=== PATIENT | female | born 1965 | race Caucasian/White ===

== ENCOUNTER → 2019-04-28 11:30 | Outpatient (CLI) | payer BC, SELFPAY ==
--- NOTE | ~2019-04-28 | XR_ITS ---
XR_CERV2-3V_CR 04/28/2019 12:20 Indication: Cervical pain Procedure: 3 views of the cervical spine Comparison: No prior studies for comparison. Findings: Normal cervical alignment. Mild disc narrowing at C4-5. There is mild uncinate degenerative change at this level. Lung apices are normal. Odontoid process within normal limits. No prevertebral soft tissue swelling. No acute fracture or traumatic malalignment. Impression: 1: Mild cervical spondylosis. Reviewed, dictated and finalized at location A. NSED SOCIAL WORKER Impression: 1: Mild cervical spondylosis.
--- NOTE | ~2019-04-28 | XR_ITS ---
XR thoracic spine 2V 04/28/2019 12:20 Indication: Back pain Procedure: 3 views thoracic spine Comparison: No prior studies for comparison. Findings: There is mild mid thoracic spondylosis was slightly accentuated kyphosis. No fracture or tr aumatic malalignment. Pedicles intact. No paraspinal soft tissue abnormality. Visualized lung parench yma is unremarkable. No significant paraspinal soft tissue abnormality. Impression: 1: Mild thoracic spondylosis. Reviewed, dictated and finalized at location A. ACCOUNTS CLERK Impression: 1: Mild thoracic spondylosis.
--- NOTE | ~2019-04-28 | XR_ITS ---
XR lumbar spine 2-3V 04/28/2019 12:20 Indication: Low back pain Procedure: 3 views lumbar spine Comparison: No prior studies for comparison. Findings: There is mild disc narrowing at L4-5 and L5-S1. There are facet hypertrophic changes at the se levels. No acute fracture, subluxation or dislocation. There is mild dextroscoliosis centered at L 2. Pedicles intact. Sacral foramen are symmetric. No evidence for spondylolisthesis. Impression: 1: Mild lumbar spondylosis with dextroscoliosis. Reviewed, dictated and finalized at location A. ERY AND UPHOLSTERY MEASURER Impression: 1: Mild lumbar spondylosis with dextroscoliosis.
== END ==
PROVIDERS: PCP Family Medicine; Visit Provider Chiropractor
DX: M47.814 Spondylosis without myelopathy or radiculopathy, thoracic region (principal); M47.816 Spondylosis without myelopathy or radiculopathy, lumbar region; M47.812 Spondylosis without myelopathy or radiculopathy, cervical region; M41.9 Scoliosis, unspecified
CPT/HCPCS: 72040; 72070; 72100

== ENCOUNTER → 2019-05-04 12:56 | Outpatient (CLI) | payer BC, SELFPAY ==
--- NOTE | ~2019-05-04 | MR_ITS ---
EXAMINATION: MR lumbar spine wo con DATE: 05/04/2019 13:30 INDICATION: Severe low back pain. TECHNIQUE: Magnetic resonance imaging (MRI) of the lumbar spine was performed without intravenous con trast. Sequences included sagittal T2-weighted FSE, sagittal T2-weighted FS FSE, sagittal T1-weighted FSE, and axial T2-weighted FSE. COMPARISON: Lumbar spine radiographs 04/28/2019 FINDINGS: L5 is a transitional segment. There is 6 degrees dextrocurvature of thoracolumbar spine. Ve rtebral body heights are normal. There is mildly decreased disc height from L2-L3 through L4-L5. The distal spinal cord signal intensity is normal. The conus medullaris is at L1. The following disc leve ls are specifically discussed: L1-L2: The disc does not extend beyond the endplate margin. There is mild bilateral facet joint osteo arthritis. There is no neural foraminal stenosis. There is no central canal stenosis. L2-L3: The disc is bulging and has an annular fissure. There is mild bilateral facet joint osteoarthr itis. There is mild bilateral neural foraminal stenosis. There is mild central canal stenosis. L3-L4: The disc is bulging and has an annular fissure. There is mild bilateral facet joint osteoarthr itis. There is moderate bilateral neural foraminal stenosis. There is mild central canal stenosis. L4-L5: The disc is bulging and has an annular fissure. There is moderate right and mild left facet lela int osteoarthritis. There is mild bilateral neural foraminal stenosis. There is mild central canal st enosis. L5-S1: The disc does not extend beyond the endplate margin. There is no facet joint osteoarthritis. T here is no neural foraminal stenosis. There is no central canal stenosis. IMPRESSION: 1. Moderate lumbar spondylosis. Reviewed, dictated and finalized at location A.
== END ==
PROVIDERS: Visit Provider Chiropractor
DX: M47.816 Spondylosis without myelopathy or radiculopathy, lumbar region (principal); Z91.81 History of falling
CPT/HCPCS: 72148

== ENCOUNTER 2019-05-04 15:47 | Outpatient (CLI) | payer BC, SELFPAY ==
--- NOTE | ~2019-05-04 | MM_ITS ---
EXAMINATION: MM screening janie BI w paul HISTORY: Screening mammogram TECHNIQUE: Craniocaudal and mediolateral oblique 3-D tomosynthesis images were obtained and synthetic 2-D images were generated. CAD analysis was submitted and interpreted. COMPARISON: 10/22/2011 bilateral digital screening mammogram BREAST PARENCHYMAL COMPOSITION: FINDINGS: There is no evidence of suspicious mass, calcification, or architectural distortion to sugg est malignancy in either breast. There has been no suspicious interval change. IMPRESSION: 1. No mammographic evidence of malignancy. 2. Recommend routine screening mammography in one year. BI-RADS Category 1: Negative Reviewed, dictated and finalized at location A.
== END 2019-05-04 15:48 | disposition home or self-care (01) ==
LOC: ANHIMG 15:50
PROVIDERS: PCP Family Medicine; Visit Provider Obstetrics & Gynecology
DX: Z12.31 Encounter for screening mammogram for malignant neoplasm of breast (principal)
CPT/HCPCS: 77063; 77067

== ENCOUNTER 2020-03-18 01:49 | Outpatient (CLI) | payer BC, SELFPAY ==
[2020-03-18 18:12] LABS: SARS-CoV-2 RNA PCR Negative
== END 2020-03-18 01:50 | disposition home or self-care (01) ==
LOC: ANHCOVIDDT 01:49
PROVIDERS: PCP Internal Medicine; Visit Provider Internal Medicine Gastroenterology
DX: Z01.812 Encounter for preprocedural laboratory examination (principal); Z20.822 Contact with and (suspected) exposure to COVID-19
CPT/HCPCS: C9803; U0003; U0005

== ENCOUNTER 2020-03-21 01:01 | Day surgery (SDC) | payer BC, SELFPAY ==
[2020-03-06 14:37] VITALS: BMI 39.4
--- NOTE | 2020-03-19 15:40 | WPDANESEPPF ---
Anes - Initial Pre Proc Eval Procedure: Operation Date: 03/21/20 10:00 Proposed Procedures p Screening Colonoscopy - Kel Pantoja MD Date/Time: 03/19/20 15:40 Surgeon: Kel Pantoja MD Pre Op Diagnosis: Neoplasm Screening Patient Data Age: 54 Gender: F Height: 1.5 m Weight: 88.6 kg Allergies Allergy/AdvReac Type Severity Reaction Status Date / Time No Known Allergies Allergy Unknown Verified 03/21/20 08:52 Home Medications Medication Instructions Recorded Confirmed Type metoprolol succinate 50 mg 50 mg PO DAILY 03/05/19 03/21/20 History tablet,extended release 24 hr duloxetine 60 mg capsule,delayed See Rx Instructions .ROUTE 06/05/19 03/21/20 Rx release .COMPLEX #90 cap bupropion HCl 150 mg 24 hr tablet, 150 mg PO QAM #90 tablet 02/26/20 03/21/20 Rx extended release fluticasone propionate 50 1 spray INTRANASAL Q12H #15.8 ml 02/26/20 03/21/20 Rx mcg/actuation nasal spray,suspension lisinopril 10 mg tablet See Rx Instructions .ROUTE 03/18/20 03/21/20 Rx .COMPLEX #90 tablet Patient hx anesthesia problems: none Family hx anesthesia problems: none PMFSH Past Medical History Medical History (Updated 03/19/20 @ 15:40 by Tony Briceño DO) Allergies Anxiety Arthritis Fibromyalgia Hypertension Sleep apnea Tachycardia Surgical History Surgical History (Updated 02/26/20 @ 13:00 by Eliana Solis CMA) H/O: hysterectomy 2004 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 Family History Family History (Updated 02/26/20 @ 13:01 by Eliana Solis CMA) Mother Patient's mother is , Onset Age: 56 Lung cancer Father Patient's father is in good health Grandparent Family history of dementia, Onset Age: 76 Family history of coronary artery disease, Onset Age: 68 Breast cancer Acute myocardial infarction Other Family history of lung cancer Family history of malignant neoplasm of breast in first degree relative Social History Social History Smoking status: Former smoker Smoking end date: 02/22/96 Alcohol intake: current Alcohol use details: SOCIALLY Substance use: never Substance use type: marijuana Living arrangements: alone Spiritual care concerns: No Anes - Eval Final PreProcedure Day of Procedure 03/19/20 15:40 Patient weight: obese Heart: regular rate and rhythm Lungs: clear to auscultation and normal air movement Airway: Mallampati scale class II Neurological: alert and oriented Last oral intake: >/= 8 hours ASA classification: III Emergent: no Anesthetic plan: proceed Anesthesia type and monitoring: general GIVS and standard monitoring Informed Consent: The patient's anesthetic plan and its attendant risks and benefits were discussed with the patient/family/POA. Questions were solicited and answers provided to the satisfaction of the patient/family/POA.
[2020-03-21 08:54] VITALS: BP 135/82; PULSE 125; RESP 19; TEMP 35.9; O2SAT 98; BMI 38.3
[2020-03-21] MEDS: LACTATED RINGERS 1,000 ML 150 ML IV CONT (09:00)
--- NOTE | 2020-03-21 09:55 | PM.HPGS ---
History of Present Illness History of Present Illness Consent: Risks, benefits, and alternatives have been discussed and questions answered. Patient agrees to proceed with procedure. Chief complaint: Neoplasm Screening Narrative: Sushila Cuello is a 54 year old female here for first screening colonoscopy Review of Systems Constitutional: Constitutional: Denies headache(s) and Denies weakness Eyes: Eyes: Denies blurry vision ENT: Reports Normal hearing present, Denies headache(s) and Denies neck pain Cardiovascular: Cardiovascular: Denies chest pain and Denies dyspnea Respiratory: Respiratory: Denies dyspnea Gastrointestinal: Gastrointestinal: Reports no additional gastrointestinal complaints Genitourinary: Genitourinary: Denies dysuria Musculoskeletal: Musculoskeletal: Denies neck pain Integumentary/Breasts: Skin/Breast: Denies dry skin Neurologic: Reports Normal hearing present, Denies headache(s) and Denies weakness Psychiatric: Psychiatric: Denies anxiety Endocrine: Endocrine: Denies change in body appearance Hematologic/Lymphatic: Hematologic/Lymphatic: Denies easy bleeding Allergic/Immunologic: Allergic/Immunologic: Denies urticaria PMFSH Past Medical History Medical History (Updated 03/19/20 @ 15:40 by Tony Briceño DO) Allergies Anxiety Arthritis Fibromyalgia Hypertension Sleep apnea Tachycardia Surgical History Surgical History (Updated 02/26/20 @ 13:00 by Eliana Solis [facility]) H/O: hysterectomy 2004 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 Family History Family History (Updated 02/26/20 @ 13:01 by Eliana Solis [facility]) Mother Patient's mother is , Onset Age: 56 Lung cancer Father Patient's father is in good health Grandparent Family history of dementia, Onset Age: 76 Family history of coronary artery disease, Onset Age: 68 Breast cancer Acute myocardial infarction Other Family history of lung cancer Family history of malignant neoplasm of breast in first degree relative Social History Social History Smoking status: Former smoker Smoking end date: 02/22/96 Alcohol intake: current Alcohol use details: SOCIALLY Substance use: never Substance use type: marijuana Living arrangements: alone Spiritual care concerns: No Meds Home Medications and Allergies Home Medications Medication Instructions Recorded Confirmed Type metoprolol succinate 50 mg 50 mg PO DAILY 03/05/19 03/21/20 History tablet,extended release 24 hr duloxetine 60 mg capsule,delayed See Rx Instructions .ROUTE 06/05/19 03/21/20 Rx release .COMPLEX #90 cap bupropion HCl 150 mg 24 hr tablet, 150 mg PO QAM #90 tablet 02/26/20 03/21/20 Rx extended release fluticasone propionate 50 1 spray INTRANASAL Q12H #15.8 ml 02/26/20 03/21/20 Rx mcg/actuation nasal spray,suspension lisinopril 10 mg tablet See Rx Instructions .ROUTE 03/18/20 03/21/20 Rx .COMPLEX #90 tablet Allergies Allergy/AdvReac Type Severity Reaction Status Date / Time No Known Allergies Allergy Unknown Verified 03/21/20 08:52 Vital Signs Vital Signs - 24 hr 03/21/20 08:54 Temperature 96.6 F L Pulse Rate 125 H Respiratory Rate 19 Blood Pressure 135/82 Pulse Oximetry 98 Exam Const: General: comfortable and no acute distress HENMT: General nose exam: Normal nares present Eyes: General: appearance normal, both eyes and all related structures Neck: Neck: no JVD Resp: Auscultation: clear to auscultation bilaterally Cardio: Rate: regular rate Rhythm: regular rhythm GI: Inspection: non-distended GI Palp: Yes Soft to palpation Skin: General skin exam: normal color Neuro: General: gait normal Speech: normal speech Extrem: General: normal to inspection Psych: Mental Status: mental status grossly normal Assessment and Plan Assessment and plan (1) Screening for colon cancer: Code(s): Z
[2020-03-21 10:17] VITALS: BP 115/64; PULSE 91; RESP 25; O2SAT 95
[2020-03-21 10:27] VITALS: BP 97/60; PULSE 92; RESP 23; O2SAT 95
[2020-03-21 10:37] VITALS: BP 111/64; PULSE 85; RESP 20; O2SAT 98
== END 2020-03-21 10:57 | disposition home or self-care (01) ==
PROVIDERS: PCP Internal Medicine; Visit Provider Internal Medicine Gastroenterology
PROC: 0DJD8ZZ Inspection of Lower Intestinal Tract, Via Natural or Artificial Opening Endoscopic (ICD-10-PCS; CPT 45378; principal; 2020-03-21 10:00)
DX: Z12.11 Encounter for screening for malignant neoplasm of colon (principal); F41.9 Anxiety disorder, unspecified; M19.90 Unspecified osteoarthritis, unspecified site; M79.7 Fibromyalgia; I10 Essential (primary) hypertension; G47.30 Sleep apnea, unspecified; R00.0 Tachycardia, unspecified; Z87.891 Personal history of nicotine dependence; E66.9 Obesity, unspecified; Z68.38 Body mass index [BMI] 38.0-38.9, adult; K64.8 Other hemorrhoids
CPT/HCPCS: 45378; J2704; J7120

== ENCOUNTER 2020-03-25 09:25 | Outpatient (RCR) | payer BC, SELFPAY ==
[2020-03-25 09:40] VITALS: BMI 42.0
[2020-03-25 09:42] VITALS: BMI 42.0
== END 2020-06-09 14:46 | disposition home or self-care (01) ==
LOC: ANHDMC 09:25
PROVIDERS: PCP Internal Medicine; Visit Provider Clinical Nurse Specialist
DX: E66.9 Obesity, unspecified (principal); Z71.3 Dietary counseling and surveillance
CPT/HCPCS: 97802

== ENCOUNTER 2020-06-04 15:30 | Outpatient (RCR) | payer BC, SELFPAY ==
--- NOTE | 2020-05-20 15:08 | PTOPEVAL ---
PHYSICAL THERAPY EVALUATION AND PLAN OF CARE 05-20-20 Thank you for referring Sushila Cuello to [facility] for the diagnosis of dizziness.? She is scheduled to be seen for therapy? 1-2 x/week for 5 weeks. Please review, sign, date and return this plan of care GEMMA. I agree with and certify that the following plan of care is medically necessary. Referring Physician Date Attending Provider: VICKY Lacy Referring Provider: Cristian Herring DO PT Outpatient Evaluation Document 05/20/20 14:00 JOVANNI (Rec: 05/20/20 15:08 JOVANNI [id number]) Outpatient Past Medical History Past Medical History Source of Past Medical History Recalled from Previous Visit, Confirmed with Patient/Family Neurological History Hx Neurological Disorders No Significant History Cardiovascular History Hx Hypertension Yes: meds Hx Other Cardiac Disorders Yes: TACHYCARDIA Respiratory History Hx Sleep Apnea Yes: CPAP- Gastrointestinal History Hx Gastrointestinal Disorders No Significant History Genitourinary History Hx Genitourinary Disorders No Significant History Musculoskeletal History Hx Arthritis Yes: hips and back- pain Hx Fibromyalgia Yes Hematological History Hx Hematological Disorders No Significant History Endocrine History Hx Endocrine Disorders No Significant History HEENT History Hx Other HEENT Disorders Yes: glasses- bifocal; Integumentary History Hx Skin Disorders No Significant History Reproductive History Hx Hysterectomy Yes Hx Other Reproductive Disorders Yes: in utero surgery with daughter who is now 20 yr ago Psychosocial History Hx Anxiety Yes Hx Depression Yes Pain History Has Past Pain Affected Your Daily Life Yes: FIBROLMYAGIA Anesthesia History Hx Anesthesia Reactions No Significant History Evaluation Information Problem Diagnosis dizziness Onset Feb 2020 Prior Level of Function Activity Level (Last 3 Months) Occupation home health nurse Activity of Daily Living Ability Independent Indoor/Home Mobility Independent Community Mobility Independent Stairs Ability Independent Functional Cognition (Planning, Shopping Independent , Taking Medications) Cooking Yes Cleaning Yes Laundry Yes Shopping Yes Driving Yes Medications Home Meds (Include: OTC, RX, Vitamins, metoprolol, lisinopril, Herbals, Dose, Route,and Frequency) wellbuterin, celexa, nasal Query Text:Home Med Entries Will No spray-PRN for sinus issues; Longer Recall From Past Visits. Home Meds Must Be Re-entered With Each Vi
--- NOTE | 2020-05-28 15:31 | PCPTNOTE ---
Patient called & cancelled scheduled appointment this date due to no transportation.
--- NOTE | 2020-06-11 17:00 | PCPTNOTE ---
Patient called & cancelled today's and the rest of her scheduled appointment this date, stating she was better, and didn't need to come back.
--- NOTE | 2020-06-12 11:37 | PCPTNOTE ---
PHYSICAL THERAPY DISCHARGE 06-12-20 Attending Provider: Za Mcarthur, DEANNA-C Patient:Sushila Kenney Date of :1965 Ms. Kenney called and stated she is doing better, is not having dizziness and wanted to cancel all her remaining appointments. The goals were not assessed. Thank you for referring this patient to [facility]. Please review, sign, date and return this discharge summary GEMMA. I have been updated about the patient's current status and I agree with discharge from the above service at this time. Referring Physician Date
== END 2020-06-13 10:33 | disposition home or self-care (01) ==
LOC: ANHPT 15:30
PROVIDERS: PCP Internal Medicine; Referring Provider Internal Medicine; Visit Provider Clinical Nurse Specialist
DX: R42 Dizziness and giddiness (principal)
CPT/HCPCS: 97110; 97161

== ENCOUNTER 2020-09-12 11:02 | Outpatient (CLI) | payer BC, SELFPAY ==
--- NOTE | ~2020-09-12 | XR_ITS ---
XR hand RT 2V DATE: 09/12/2020 11:21 INDICATION: Fall, hand injury. Pain and swelling at the first digit TECHNIQUE: AP and lateral views of right hand COMPARISON: None FINDINGS: No recent fracture or dislocation is detected. IMPRESSION: No recent fracture or dislocation Reviewed, dictated and finalized at location A.
== END 2020-09-12 11:03 | disposition home or self-care (01) ==
PROVIDERS: PCP Internal Medicine; Visit Provider Clinical Nurse Specialist
DX: M79.641 Pain in right hand (principal)
CPT/HCPCS: 73120

== ENCOUNTER → 2021-04-28 10:58 | Outpatient (CLI) | payer BC, SELFPAY ==
--- NOTE | ~2021-04-28 | MM_ITS ---
EXAMINATION: MM screening janie BI w paul HISTORY: Screening TECHNIQUE: Craniocaudal and mediolateral oblique 3-D tomosynthesis images were obtained and synthetic 2-D images were generated. CAD analysis was submitted and interpreted. COMPARISON: Comparison to multiple prior studies sequentially, with oldest reviewed study dated 10/21. BREAST PARENCHYMAL COMPOSITION: There are scattered areas of fibroglandular density. FINDINGS: There is no evidence of suspicious mass, calcification, or architectural distortion to sugg est malignancy in either breast. There has been no suspicious interval change. IMPRESSION: 1. No mammographic evidence of malignancy. 2. Recommend routine screening mammography in one year. BI-RADS Category 1: Negative Reviewed, dictated and finalized at location A. CLUB TRAVEL COUNSELOR
== END ==
PROVIDERS: PCP Internal Medicine; Visit Provider Nurse Practitioner
DX: Z12.31 Encounter for screening mammogram for malignant neoplasm of breast (principal)
CPT/HCPCS: 77063; 77067

== ENCOUNTER 2021-09-28 13:21 | Outpatient (CLI) | payer BC, SELFPAY ==
[2021-09-28 20:01] LABS: Vitamin D 25 Hydroxy 53.3 ng/mL
== END 2021-09-28 13:22 | disposition home or self-care (01) ==
LOC: ANHGOSHLAB 13:24
PROVIDERS: PCP Internal Medicine; Visit Provider Clinical Nurse Specialist
DX: E55.9 Vitamin D deficiency, unspecified (principal)
CPT/HCPCS: 36415; 82306

== ENCOUNTER → 2021-10-21 09:21 | Outpatient (CLI) | payer BC, SELFPAY ==
--- NOTE | ~2021-10-21 | XR_ITS ---
EXAMINATION: XR chest 2V DATE: 10/21/2021 09:40 INDICATION: Cough, unspecified. TECHNIQUE: Frontal and lateral views of the chest were obtained. COMPARISON: Chest 2 views 12/16/2018 FINDINGS: The chest demonstrates clear lungs without pneumonia, pleural effusion, or pneumothorax. Th e heart size is normal. IMPRESSION: 1. No acute cardiopulmonary disease. Reviewed, dictated and finalized at location A.
== END ==
PROVIDERS: PCP Clinical Nurse Specialist; Visit Provider Clinical Nurse Specialist
DX: R05.9 Cough, unspecified (principal)
CPT/HCPCS: 71046

== ENCOUNTER → 2021-11-03 12:56 | Outpatient (CLI) | payer BC, SELFPAY ==
--- NOTE | ~2021-11-03 | CT_ITS ---
EXAMINATION: CT sinus wo con DATE: 11/03/2021 13:26 INDICATION: Chronic sinusitis TECHNIQUE: Computed tomography (CT) of the paranasal sinuses was performed without intravenous contra st. The dose-length product (DLP) was 279.12 mGy-cm. Iterative reconstruction was used. COMPARISON: None FINDINGS: There is normal development and pneumatization of the paranasal sinuses. There is mild muco ethan thickening of the bilateral maxillary sinuses. There is also minimal opacification of the right s phenoid sinus. A small amount of mucus is seen in the left sphenoid sinus. There is mild mucosal thic kening of the left frontal sinus and ethmoidal air cells. 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 There is opacification of the aura bullosa on the right. The bilateral ostiomeatal complexe s are occluded. Visualized soft tissues are unremarkable. IMPRESSION: 1. Sinus disease as described above. Reviewed, dictated and finalized at location B.
== END ==
PROVIDERS: PCP Internal Medicine; Visit Provider Otolaryngology
DX: J32.9 Chronic sinusitis, unspecified (principal); J33.9 Nasal polyp, unspecified; J34.89 Other specified disorders of nose and nasal sinuses; R09.81 Nasal congestion; R09.82 Postnasal drip; R44.8 Other symptoms and signs involving general sensations and perceptions
CPT/HCPCS: 70486

== ENCOUNTER 2021-12-16 11:15 | Outpatient (CLI) | payer BC, SELFPAY ==
--- NOTE | 2021-12-16 11:42 | ECG_ITS ---
Measurements Intervals [place] Rate: 96 P: 57 WI: 130 QRS: 44 QRSD: 72 T: 45 QT: 301 QTc: 382 Interpretive Statements SINUS RHYTHM COMPARED TO ECG 12/16/2018 17:31:50 SINUS RHYTHM NOW PRESENT Electronically Signed On 12-16-2021 13:18:07 CDT by Meenakshi Partida M.D.
== END 2021-12-16 11:16 | disposition home or self-care (01) ==
LOC: ANHSURGERY 11:19
PROVIDERS: PCP Internal Medicine; Visit Provider Otolaryngology
DX: I10 Essential (primary) hypertension (principal); Z01.818 Encounter for other preprocedural examination
CPT/HCPCS: 93005

== ENCOUNTER 2021-12-18 01:41 | Day surgery (SDC) | payer BC, SELFPAY ==
[2021-12-14 14:09] VITALS: BMI 37.7
--- NOTE | 2021-12-14 14:12 | SUR.PREOP ---
Report to the Outpatient Waiting Room, entrance under the green pavilion located off [facility], at time _1115 on date _12/18/21 . Planned Procedure Time: _1315. Time changes happen often and if your time is changed the preop area will call you the afternoon before. - You and your visitor will be asked to self-screen and do not enter if you have any COVID symptoms. - We encourage only one visitor and NO visitors under age 16 are allowed at this time. Your visitor will receive communication by the phone number that is given day of service. - The patient visitor is requested to social distance or may leave the building when not with patient due to restrictions. - A mask is required within the hospital. Patients may have clear liquids (water, carbonated beverages, clear teas, apple juice) until 3 hours prior to surgery with a maximum of 20 ounces. - No food from midnight until time of surgery - Infants may have breast milk until 4 hours before surgery, infant formula 6 hours prior to surgery. - Children will be allowed to drink immediately following surgery. If applicable, please bring a bottle or sippy cup to assist with drinking. Juice, water, soda, and popsicles are readily available. For infants on formula, please bring formula the day of surgery. Pacifiers are allowed. Take the following medications with a SIP of water the morning of surgery: __bupropion,dulexatine,metoprolol Medications to discontinue per physician __vitamins Date to take last dose__12/15/21 Please no make-up, nail danish, hairspray, perfume, deodorant, or body powder the day of surgery. No jewelry (including any body piercings) or valuables the day of surgery, leave them at home. Please take a shower or bath the night before, or the morning of, surgery with an antibacterial soap. Wear comfortable, loose fitting clothing. Children are encouraged to wear pajamas. - Jewelry must be removed prior to entering the operating room. Rings and piercings that are not removed may be cut off. - The hospital will not accept responsibility for valuables. - Please leave all valuables, including medications, at home the day of surgery. If you are going home after surgery, a licensed motorcoach driver must drive you home. - NO public transportation without another adult. - We recommend that an adult stay with you for 24 hours following discharge. - We also recommend that you do not drive, make important decision, drink alcoholic beverages, or take any drugs that were not prescribed by your health care provider for at least 24 hours after your discharge time. For Pediatric surgeries, we recommend two adults accompany the child home. Follow any additional instructions given to you from your surgeon. If you or anyone in your household have experienced Covid symptoms in the past week, please notify your surgeon or the nurse liaison at the phone number below for possible testing. Telephone instructions given to _edith mast___and asked if any additional questions and then verbalized understanding. Patient advised to call surgeon office or pre surgery nurse liaison [phone] if any additional questions.
--- NOTE | 2021-12-15 16:50 | PM.IMHP ---
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 Family History Family History Mother Patient's mother is , Onset Age: 56 Lung cancer Father Patient's father is in good health Grandparent Family history of dementia, Onset Age: 76 Family history of coronary artery disease, Onset Age: 68 Breast cancer Acute myocardial infarction Other Family history of lung cancer Family history of malignant neoplasm of breast in first degree relative Social History Social History Smoking status: Former smoker Smoking end date: 02/21/93 Additional smoking assessment comments: 1/2 pack per week x 10 years Alcohol intake: current Alcohol use details: occasionally 2x a month Substance use: current Substance use type: marijuana Other substance usage details: smoking Spiritual care concerns: No Meds Home Medications and Allergies Home Medications Medication Instructions Recorded Confirmed Type metoprolol succinate 50 mg 50 mg PO DAILY 03/05/19 12/14/21 History tablet,extended release 24 hr duloxetine 60 mg capsule,delayed See Rx Instructions .Route 08/20/21 12/14/21 Rx release .COMPLEX #90 caps bupropion HCl 150 mg 24 hr tablet, See Rx Instructions .Route 09/29/21 12/14/21 Rx extended release .COMPLEX #90 tabs albuterol sulfate 90 mcg/actuation 2 inh inhalation Q4H PRN shortness 10/21/21 12/14/21 Rx aerosol inhaler of breath or wheezing #8.5 grams lisinopril 10 mg tablet See Rx Instructions .Route 12/08/21 12/14/21 Rx .COMPLEX #90 tabs azelastine 137 mcg (0.1 %) nasal See Rx Instructions .Route 12/14/21 12/14/21 History spray aerosol .COMPLEX PRN Allergic Symptoms fluticasone propionate 50 1 spray intranasal Q12H PRN 12/14/21 12/14/21 History mcg/actuation nasal Allergic Symptoms spray,suspension (Flonase Allergy Relief) vitamin B complex (B 1 tablet PO DAILY 12/14/21 12/14/21 History Complex-Vitamin B12 tablet) prednisone 10 mg tablet 10 mg PO DAILY #3 tabs 12/15/21 Rx Allergies Allergy/AdvReac Type Severity Reaction Status Date / Time No Known Allergies Allergy Unknown Verified 12/14/21 13:44 Exam Narrative: big turbinates aura bilaterally Assessment and Plan Assessment and plan (1) PND (post-nasal drip): Code(s): R09.82 - Postnasal drip Status: Acute (2) Facial pressure: Code(s): R44.8 - Other symptoms and signs involving general sensations and perceptions Status: Acute (3) Nasal polyps: Code(s): J33.9 - Nasal polyp, unspecified Status: Acute (4) Nasal congestion: Code(s): R09.81 - Nasal congestion Status: Acute (5) Nasal obstruction: Code(s): J34.89 - Other specified disorders of nose and nasal sinuses Status: Acute (6) Chronic sinusitis: Code(s): J32.9 - Chronic sinusitis, unspecified Status: Acute (7) Aura bullosa: Code(s): J34.89 - Other specified disorders of nose and nasal sinuses Status: Acute Plan OR for?image guided endoscopic bilateral maxillary antrostomies without tissue removal bilateral aura bullosa resection bilateral total ethmoidectomies bilateral sphenoidotomies and left frontal sinu
[2021-12-18] VITALS (8 sets, daily range): BP systolic 140–159; BP diastolic 64–102; PULSE 90–107; RESP 12–16; TEMP 36.5–36.6; O2SAT 92–100
--- NOTE | 2021-12-18 07:14 | WPDHPUPDATE1 ---
History and Physical Update Update Date/Time: 12/18/21 07:14 History and Physical has been reviewed, including an updated exam of the patient. There are NO changes in the patient's condition. Risks, benefits, and alternatives have been discussed and questions answered. Patient agrees to proceed with procedure.
[2021-12-18] MEDS: ACETAMINOPHEN 500 MG TABLET 1000 MG PO (11:44)
[2021-12-18] MEDS: LACTATED RINGERS 1,000 ML 30 ML IV CONT ×3 (12:02→17:30)
--- NOTE | 2021-12-18 12:09 | WPDANESEPPF ---
Anes - Initial Pre Proc Eval Procedure: Operation Date: 12/18/21 13:15 Proposed Procedures p Image Guided Bilateral Maxillary Antrostomy, Resection Bilateral Blanka Bullosa, Bilateral Total Ethmoidectomy, Bilateral Sphenoidotomy, Left Frontal Sinusotomy, Bilateral Inferior Turbinectomy with Outfracture - Richie Valles MD Date/Time: 12/18/21 12:09 Surgeon: Richie Valles MD Pre Op Diagnosis: Turbinate Hypertrophy, Blanka Bullosa Patient Data Age: 55 Gender: F Height: 1.47 m Weight: 84 kg Last Vital Signs Temp 36.5 C 12/18/21 11:38 Pulse 90 12/18/21 11:38 Resp 16 12/18/21 11:38 BP 148/70 H 12/18/21 11:38 Pulse Ox 99 12/18/21 11:38 O2 Del Method Room Air 12/18/21 11:38 Allergies Allergy/AdvReac Type Severity Reaction Status Date / Time No Known Allergies Allergy Unknown Verified 12/18/21 11:40 Home Medications Medication Instructions Recorded Confirmed Type metoprolol succinate 50 mg 50 mg PO DAILY 03/05/19 12/18/21 History tablet,extended release 24 hr duloxetine 60 mg capsule,delayed See Rx Instructions .Route 08/20/21 12/18/21 Rx release .COMPLEX #90 caps bupropion HCl 150 mg 24 hr tablet, See Rx Instructions .Route 09/29/21 12/18/21 Rx extended release .COMPLEX #90 tabs albuterol sulfate 90 mcg/actuation 2 inh inhalation Q4H PRN shortness 10/21/21 12/18/21 Rx aerosol inhaler of breath or wheezing #8.5 grams lisinopril 10 mg tablet See Rx Instructions .Route 12/08/21 12/18/21 Rx .COMPLEX #90 tabs azelastine 137 mcg (0.1 %) nasal See Rx Instructions .Route 12/14/21 12/18/21 History spray aerosol .COMPLEX PRN Allergic Symptoms fluticasone propionate 50 1 spray intranasal Q12H PRN 12/14/21 12/18/21 History mcg/actuation nasal Allergic Symptoms spray,suspension (Flonase Allergy Relief) vitamin B complex (B 1 tablet PO DAILY 12/14/21 12/18/21 History Complex-Vitamin B12 tablet) Patient hx anesthesia problems: none Family hx anesthesia problems: none Results Review: All pre-operative results and documents have been reviewed as part of the pre-operative evaluation. 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 Family History Family History Mother Patient's mother is , Onset Age: 56 Lung cancer Father Patient's father is in good health Grandparent Family history of dementia, Onset Age: 76 Family history of coronary artery disease, Onset Age: 68 Breast cancer Acute myocardial infarction Other Family history of lung cancer Family history of malignant neoplasm of breast in first degree relative Social History Social History Smoking status: Never smoker Smoking end date: 02/22/96 Additional smoking assessment comments: 1/2 pack per week x 10 years Alcohol intake: current Alcohol use details: SOCIALLY Substance use: current Substance use type: marijuana Other substance usage details: smoking Living arrangements: with family Spiritual care concerns: No Anes - Eval Final PreProcedure Day of Procedure 12/18/21 12:09 Patient weight: obese Heart: regular rate and rhythm Lungs: clear to auscultation Airway: Mallampati scale class II Neurological: alert and oriented Last oral intake: >/= 8 hours ASA classification: III Emergent: no Anesthetic plan: proceed Anesthesia type and monitoring: general ETT and standard monitoring Results Review: All pre-operative results and documents have been reviewed as part of the pre-operative evaluation. Informed Consent: The patient'
[2021-12-18] MEDS: ceFAZolin 2 GM/D5W 50 ML 2 GM/50 ML BAG IVPB (13:41)
[2021-12-18] MEDS: OXYMETAZOLINE HCL 0.05% NAS 15 ML BTL (*BKC) 1 SPRAY NASAL ×3 (13:56→16:27)
[2021-12-18] MEDS: MUPIROCIN 2% OINT 22 GM TUBE 1 APPLIC EACH NARE (15:57)
[2021-12-18] MEDS: fentaNYL CITRATE INJ (*CRX) 100 MCG/2 ML VIAL 25 MCG IV PUSH ×4 (17:17→17:32)
--- NOTE | 2021-12-18 18:14 | P.OP_ITS ---
Procedure Note - Detailed Date of Procedure 12/18/21 Pre-op Diagnosis Turbinate Hypertrophy, Aura Bullosa bilaterally, chronic sinusitis Post-op Diagnosis Same Procedure Performed bilateral image guided endoscopic maxillary antrostomies total ethmoidectomies sphenoidotomies, image guided endoscopic left frontal sinusotomy, endoscopic resection of bilateral aura bullosa, inferior turbinate submucosal resection with outfracture Surgeon Richie Valles MD Anesthesia General Indications see above Findings infected tissue in all the operated sinuses left frontal appeared normal after opening. Aura with severe disease especially in the right. Hypertrophied turbinates well reduced no complications bleeding following the procedure with no obvious source located Description of Procedure patient identified consent verified. Patient brought operating room. Time-out performed. General anesthesia induced endotracheal tube secured taped left lower lip. Patient prepped draped image guidance initiated Afrin-soaked pledgets placed 2nd time-out performed. Afrin-soaked pledgets removed 0 degree endoscope utilized total of 9 cc 1% lidocaine 1 100,000 parts epinephrine utilized and injected into the inferior turbinates and aura. Aura resected with sickle blade microdebrider straight through cut the right had copious amounts of mucus and purulence in it. Maxillary antrostomies performed with wi th double ball tip probe backbiter straight through cut microdebrider. Total ethmoidectomies performed with image guidance Kerrison microdebrider straight through cut. Sphenoidotomies performed with image guidance microdebrider 1 Kerrison 3 Kerrison and sphenoid punch. Afrin-soaked pledgets were immediate intermittently placed to control bleeding. Left frontal sinusotomy was performed with image guidance frontal seeker 70 degree scope and Cobra. Inferior turbinates reduced with 2 mm turbinate blade then outfractured large mulberry tips were cauterized with Bovie suction electrocautery. Upon wake-up the patient bled and was deepened she was not extubated get. Bovie suction electrocautery utilized to burn the posterior septal branches. Nova plaque Nova pack was placed in the bilateral middle meati I there is no bleeding. Patient tolerated the procedure well no complications. Total blood loss 200 cc. I performed all dictated portions of the procedure patient taken to PACU care the patient given Anesthesiology. Estimated Blood Loss 200 Drains No Packing Yes (Novapak) Pathology None sent Complications No immediate complications Condition Stable Disposition PACU
[2021-12-18] MEDS: IBUPROFEN 600 MG TABLET PO (18:15)
== END 2021-12-18 18:45 | disposition home or self-care (01) ==
PROVIDERS: PCP Internal Medicine; Visit Provider Otolaryngology
PROC: (CPT 31240; principal; 2021-12-18 13:15)
DX: J32.9 Chronic sinusitis, unspecified (principal); J34.3 Hypertrophy of nasal turbinates; J34.89 Other specified disorders of nose and nasal sinuses; R09.82 Postnasal drip; R51.9 Headache, unspecified; R09.81 Nasal congestion; I10 Essential (primary) hypertension; M79.7 Fibromyalgia; F41.9 Anxiety disorder, unspecified; G47.30 Sleep apnea, unspecified; Z79.51 Long term (current) use of inhaled steroids; Z87.891 Personal history of nicotine dependence; F12.90 Cannabis use, unspecified, uncomplicated; E66.9 Obesity, unspecified; Z68.38 Body mass index [BMI] 38.0-38.9, adult
CPT/HCPCS: 31240; 31256; 31253; 31287; 30140; 61782; A9270; J0330; J0690; J1100; J2250; J2405; J2704; J3010; J7120

== ENCOUNTER 2022-04-07 11:48 | Outpatient (CLI) | payer OTHER, BC, SELFPAY ==
[2022-04-07 12:22] LABS: Kit Draw Collected
== END 2022-04-07 11:49 | disposition home or self-care (01) ==
LOC: ANHGOSHLAB 11:49
PROVIDERS: PCP Internal Medicine; Visit Provider Clinical Nurse Specialist
DX: E34.9 Endocrine disorder, unspecified (principal); E87.0 Hyperosmolality and hypernatremia; F31.9 Bipolar disorder, unspecified
CPT/HCPCS: 36415

== ENCOUNTER → 2022-07-09 12:22 | Outpatient (CLI) | payer OTHER, BC, SELFPAY ==
--- NOTE | ~2022-07-09 | US_ITS ---
US soft tissue UE LT 07/09/2022 12:39 Indication: Localized swelling. Palpable area base of the left thumb Procedure: High-resolution Limited ultrasound of the base of the left thumb in the area of palpable c oncern Comparison: X-ray dated 12/01/2017 Findings: Normal heterogeneous echotexture in the area of palpable concern. No discrete mass or fluid collection. Impression: 1: Normal limited soft tissue ultrasound at the base of the left thumb in the area of palpable concer n. Reviewed, dictated and finalized at location B. Impression: 1: Normal limited soft tissue ultrasound at the base of the left thumb in the a marialuisa of palpable concern.
== END ==
PROVIDERS: PCP Clinical Nurse Specialist; Visit Provider Clinical Nurse Specialist
DX: R22.32 Localized swelling, mass and lump, left upper limb (principal)
CPT/HCPCS: 76882

== ENCOUNTER → 2022-12-09 13:37 | Outpatient (CLI) | payer OTHER, BC, SELFPAY ==
--- NOTE | ~2022-12-09 | MM_ITS ---
EXAMINATION: MM screening janie BI w paul HISTORY: Screening TECHNIQUE: Craniocaudal and mediolateral oblique 3-D tomosynthesis images were obtained and synthetic 2-D images were generated. CAD analysis was submitted and interpreted. COMPARISON: Comparison to multiple prior studies sequentially, with oldest reviewed study dated 05/03. BREAST PARENCHYMAL COMPOSITION: There are scattered areas of fibroglandular density. FINDINGS: There are developing asymmetries in the left breast. The right breast is stable without laura dence for malignancy. IMPRESSION: 1. Developing left breast asymmetries. 2. Additional mammographic views and possible breast ultrasound are recommended. BI-RADS Category 0: Incomplete: Needs additional imaging evaluation. Reviewed, dictated and finalized at location A. IMPRESSION: 1. Developing left breast asymmetries. 2. Additional mammographic views and possible breast ultrasound are recommended . BI-RADS Category 0: Incomplete: Needs additional imaging evaluation.
== END ==
PROVIDERS: PCP Nurse Practitioner Obstetrics & Gynecology; Visit Provider Nurse Practitioner Obstetrics & Gynecology
DX: Z12.31 Encounter for screening mammogram for malignant neoplasm of breast (principal); R92.8 Other abnormal and inconclusive findings on diagnostic imaging of breast
CPT/HCPCS: 77063; 77067

== ENCOUNTER → 2022-12-31 09:18 | Outpatient (CLI) | payer OTHER, BC, SELFPAY ==
--- NOTE | ~2022-12-31 | MMUS_ITS ---
EXAMINATION: MM diagnostic janie LT w paul, US breast LT limited HISTORY: Follow-up left breast asymmetries TECHNIQUE: Additional 3-D tomosynthesis images of the left breast were performed and synthetic 2-D im ages were generated. CAD analysis was submitted and interpreted. High resolution Limited left breast ultrasound was performed. COMPARISON: 12/09/2022 BREAST PARENCHYMAL COMPOSITION: The breasts are heterogeneously dense, which may obscure small masses FINDINGS: MAMMOGRAPHIC FINDINGS: There are persistent asymmetries in the upper outer quadrant of the left breast, particularly anterio rly. There are no suspicious calcifications. No definite architectural distortion. ULTRASOUND: Limited left breast ultrasound: At 2:00, 8 cm from the nipple, there is a cluster of microcysts measu ring 8 mm. At 3:00, 6 cm from the nipple there is an oval hypoechoic mass measuring 11 mm with cytogeneticist ior acoustic enhancement, no internal vascularity. At 4:00, 7 cm from the nipple there is an irregula r hypoechoic mass measuring 11 mm greatest dimension. There are adjacent complex hypoechoic tubular s tructures at 4:00, 7 cm from the nipple, largest measuring 1.9 cm. There is associated posterior shad owing. IMPRESSION: 1. Ultrasound-guided left breast biopsies of structures at the 4:00 position, 7 cm from the nipple me asuring 11 mm and 19 mm respectively. BI-RADS CATEGORY 4-SUSPICIOUS ABNORMALITY Reviewed, dictated and finalized at location A. T HEATER IMPRESSION: 1. Ultrasound-guided left breast biopsies of structures at the 4:00 position, 7 cm from the nipple measuring 11 mm and 19 mm respectively. BI-RADS CATEGORY 4-SUSPICIOUS ABNORMALITY
== END ==
PROVIDERS: PCP Nurse Practitioner Obstetrics & Gynecology; Visit Provider Nurse Practitioner Obstetrics & Gynecology
DX: R92.8 Other abnormal and inconclusive findings on diagnostic imaging of breast (principal)
CPT/HCPCS: 76642; 77061; 77065; G0279

== ENCOUNTER 2023-08-02 16:55 | Emergency (ER) | payer OTHER, BC, SELFPAY ==
--- NOTE | 2023-08-02 16:57 | ED.BACK ---
HPI - Back Pain/Injury General Chief Complaint: Back Pain/Injury Stated Complaint: R BACK PAIN Time Seen by Provider: 08/02/23 17:05 Source: patient, RN notes reviewed and old records reviewed Mode of arrival: ambulatory Limitations: no limitations History of Present Illness HPI Narrative: 57-year-old female presents to the [facility] with right-sided back pain. pain started this am. Reports that she has taken ibuprofen with no relief No Urinary symptoms. Denies any injury. Onset (ago): hour(s) Related Data Home Medications Medication Instructions Recorded Confirmed metoprolol succinate 50 mg 50 mg PO DAILY 03/05/19 08/02/23 tablet,extended release 24 hr azelastine 137 mcg (0.1 %) nasal See Rx Instructions .Route 12/14/21 08/02/23 spray aerosol .COMPLEX PRN Allergic Symptoms fluticasone propionate 50 1 - 2 spray intranasal Q12H PRN 04/21/22 08/02/23 mcg/actuation nasal Allergic Symptoms spray,suspension (Flonase Allergy Relief) Allergies Allergy/AdvReac Type Severity Reaction Status Date / Time No Known Allergies Allergy Unknown Verified 08/02/23 17:06 Review of Systems Review of Systems: All systems reviewed & are unremarkable except as noted in HPI and below Constitutional: Constitutional: Reports no additional constitutional complaints Eyes: Eyes: Reports no additional eye complaints ENT: Reports system reviewed and no additional complaints, except as documented Cardiovascular: Cardiovascular: Reports no additional cardiovascular complaints, Denies chest pain and Denies dyspnea Respiratory: Respiratory: Reports no additional respiratory complaints, Denies chest congestion, Denies cough and Denies dyspnea Gastrointestinal: Gastrointestinal: Reports no additional gastrointestinal complaints, Denies abdominal pain, Denies nausea and Denies vomiting Musculoskeletal: Musculoskeletal: Reports as per HPI Integumentary/Breasts: Skin/Breast: Reports system reviewed and no additional complaints, except as docu Neurologic: Reports system reviewed and no additional complaints, except as documented Psychiatric: Psychiatric: Reports no additional psychiatric complaints Allergic/Immunologic: Allergic/Immunologic: Reports no additional allergic/immunologic complaints PMFSH Past Medical History Medical History Allergies Anxiety Arthritis Fibromyalgia Hypertension Obesity, Class III, BMI 40-49.9 (morbid obesity) Sleep apnea Tachycardia Surgical History Surgical History H/O: hysterectomy 2004 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 Family History Family History Mother Patient's mother is , Onset Age: 56 Lung cancer Father Patient's father is in good health Grandparent Family history of dementia, Onset Age: 76 Family history of coronary artery disease, Onset Age: 68 Breast cancer Acute myocardial infarction Other Family history of lung cancer Family history of malignant neoplasm of breast in first degree relative Social History Social History (Updated 08/02/23 @ 17:24 by Pretty Perez APRN) Social History: Caffeine-coffee Smoking status: Former smoker Smoking end date: 02/22/96 Additional smoking assessment comments: 1/2 pack per week x 10 years Alcohol intake: current Alcohol use details: SOCIALLY Substance use: current Substance use type: marijuana Other substance usage details: smoking Lack of Transportation: No Lack of Food: Never True Current Housing: I Have Housing Concerned About Future Housing: No Difficulty Paying Gas/Electric Bills: No Difficulty Paying for Meds: No Currently Unemployed: No Education: Associate Degree Difficulty w/ Childcare or Family Care: No Living arrangements: with family Spiritual care co
[2023-08-02 17:06] VITALS: BP 144/81; PULSE 110; RESP 16; TEMP 36.6; O2SAT 99
[2023-08-02 17:07] VITALS: BP 144/81; PULSE 110; RESP 16; TEMP 36.6; O2SAT 99
== END 2023-08-02 17:14 | disposition home or self-care (01) ==
PROVIDERS: Emergency Provider Nurse Practitioner; PCP Internal Medicine
DX: M54.31 Sciatica, right side (principal); M54.9 Dorsalgia, unspecified; Z87.891 Personal history of nicotine dependence; M19.90 Unspecified osteoarthritis, unspecified site; M79.7 Fibromyalgia; I10 Essential (primary) hypertension; E66.9 Obesity, unspecified; Z68.43 Body mass index [BMI] 50.0-59.9, adult
CPT/HCPCS: 99213; G0463

== ENCOUNTER 2024-02-09 14:22 | Outpatient (CLI) | payer OTHER, BC, SELFPAY ==
[2024-02-09 19:46] LABS: Basophils Absolute Auto 0.1 K/mm3 (0.0-0.1); Basophils Percent Auto 0.9 % (0.2-1.2); Eosinophils Absolute Auto 0.4 K/mm3 (0-0.3); Eosinophils Percent Auto 4.1 % (0-4.4); Hematocrit 45.3 % (37.0-47.0); Hemoglobin 13.9 g/dL (12.0-15.0); Immature Granulocyte Absolute 0.03 K/mm3 (0.00-0.031); Immature Granulocyte Percent A 0.3 % (0-0.5); Lymphocytes Absolute Auto 2.81 K/mm3 (0.9-3.2); Lymphocytes Percent Auto 26.9 % (18.3-44.2); Mean Corpuscular HGB Conc 30.7 g/dl (32-36); Mean Corpuscular Hemoglobin 27.7 pg (26-34); Mean Corpuscular Volume 90.4 fl (80-100); Mean Platelet Volume 11.6 fl (7.4-10.4); Monocytes Absolute Auto 0.7 K/mm3 (0.1-0.6); Monocytes Percent Auto 6.9 % (2.6-8.5); Neutrophils Absolute Auto 6.4 K/mm3 (1.3-6.7); Neutrophils Percent Auto 60.9 % (45.5-73.1); Platelet Count Result 296 k/mm3 (150-375); Red Blood Count 5.01 M/mm3 (4.2-5.4); Red Cell Distribution Width 14.1 % (11.5-14.5); White Blood Count 10.5 K/mm3 (4.5-10.0)
[2024-02-09 20:03] LABS: Alanine Aminotransferase 22 U/L (6-35); Albumin Level 4.4 g/dL (3.5-5.1); Alkaline Phosphatase 92 U/L (38-126); Anion Gap 5 mmol/L (4-12); Aspartate Amino Transferase 49 U/L (14-36); Bilirubin,Total 0.4 mg/dL (0.2-1.3); Blood Urea Nitrogen 20 mg/dL (7-17); Calcium 9.5 mg/dL (8.4-10.2); Carbon Dioxide 30 mmol/L (22-30); Chloride 107 mmol/L (98-107); Cholesterol 185 mg/dL (0-200); Estimated Glomerular Filt Rate > 60; Glucose 90 mg/dL (65-110); HDL Direct 41 mg/dL; Potassium 4.2 mmol/L (3.4-5.0); Sodium 142 mmol/L (137-145); Triglycerides 299 mg/dL (<150)
[2024-02-09 20:18] LABS: LDL Cholesterol Direct 85 mg/dL
[2024-02-09 20:24] LABS: Vitamin D 25 Hydroxy 88.7 ng/mL
[2024-02-09 20:31] LABS: Thyroid Stimulating Hormone 0.993 uIU/mL (0.465-4.680)
[2024-02-09 20:55] LABS: Hemoglobin A1C 5.9 % (<5.7)
== END 2024-02-09 14:23 | disposition home or self-care (01) ==
LOC: ANHGOSHLAB 14:23
PROVIDERS: PCP Internal Medicine; Visit Provider Clinical Nurse Specialist
DX: Z00.00 Encounter for general adult medical examination without abnormal findings (principal); R53.83 Other fatigue; E55.9 Vitamin D deficiency, unspecified; R73.9 Hyperglycemia, unspecified
CPT/HCPCS: 36415; 80053; 80061; 82306; 83036; 84443; 85025

== ENCOUNTER 2024-05-28 12:37 | Outpatient (CLI) | payer OTHER, BC, SELFPAY ==
--- OUTSIDE RECORDS SUMMARY | 2024-05-28 14:14 | XMS_ITS | Encounter Summary ---
Author Organization [facility] Healthcare Address [address] [place] [address] Care Team Providers Care Sr Community Manager Name Role Phone Unavailable Primary Care Provider Unavailabl e Reason for Visit * Diagnostic Imaging (Routine) - Closed Specialty Diagnoses / Procedures Referred By Contac t Referred To Contact Procedures Breast Imaging Screening Outside Reference Transcribed Order, Provider Referral ID Status Reason Start Date Expiration Date Visits Re quested Visits Authorized [id number] Closed 01/19/2023 02/18/2024 1 1 Encounter Details Date Type Department Care Team (Late st Contact Info) Description 03/07/2009 Hospital Encounter [facility] [address] [place] [id number] Social History Tobacco Use Types Packs/Day [...] on file Legal Sex Female 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 Gender Identity Not on file Sexual Orientation Not on file documented as of this encounter Functional Status documented as of this encounter Plan of Treatment Not on file documented as of this encounter Procedures Procedure Name Priority Date/Time Associated Diagnosis Comments BREAST IMAGING MG SCREENING OUTSIDE REFERENCE Routine 03/07/2009 12:00 AM CYTOGENETICS LABORATORY MANAGER documented in this encounter Results * Breast Imaging Screening Outside Reference (03/07/2009 12:00 AM CYTOGENETICS LABORATORY MANAGER) Impressions [facility] - 01/19/2023 8:46 AM CYTOGENETICS LABORATORY MANAGER These images are for Reference purposes only and have not been reviewed by [facility] Radiology. There will be no report generated by a [facility] Radiologist. Narrative [facility] - 01/19/2023 8:46 AM CYTOGENETICS LABORATORY MANAGER EXAMINATION: Images For Reference Purposes Only us Provider Transcribed Order IMG MAMMO PROCEDURES Final Result [facility] documented in this encounter Visit Diagnoses Not on filedocumented in this encounter
--- OUTSIDE RECORDS SUMMARY | 2024-05-28 14:14 | XMS_ITS | Encounter Summary ---
Author Organization [facility] Healthcare Address [address] [place] [address] Care Team Providers Care Drier Tender Naphthalene Name Role Phone Lv Samayoa Primary Care Provider [phone] Reason for Visit * Diagnostic Imaging (Routine) - Closed Specialty Diagnoses / Procedures Referred By Contac t Referred To Contact Procedures Breast Imaging Screening Outside Reference Transcribed Order, Provider Referral ID Status Reason Start Date Expiration Date Visits Re quested Visits Authorized [id number] Closed 01/19/2023 02/18/2024 1 1 Encounter Details Date Type Department Care Team (Late st Contact Info) Description 05/04/2019 Hospital Encounter [facility] [address] [place] [id number] Social History Tobacco Use Types Packs/Day [...] on file Legal Sex Female 7:42 PM CHECK WRITER Gender Identity Not on file Sexual [...] CDT) Impressions [facility] - 01/19/2023 8:52 AM CHECK WRITER These images are for Reference purposes only and have not been reviewed by [facility] Radiology. There will be no report generated by a [facility] Radiologist. Narrative [facility] - 01/19/2023 8:52 AM CHECK WRITER EXAMINATION: Images For Reference Purposes Only us Provider Transcribed Order IMG MAMMO PROCEDURES Final Result [facility] documented in this encounter Visit Diagnoses Not on filedocumented in this encounter Care Teams Drier Tender Naphthalene Relationship Specialty Start Date End Date Lv Samayoa [address] [place] [address] PCP - General 01/07/14 03/12/20 documented as of this encounter
--- OUTSIDE RECORDS SUMMARY | 2024-05-28 14:14 | XMS_ITS | Clinical Summary ---
Author Organization [facility] Address [address] [place] [address] Care Team Providers Care Strategic Partnership Manager Name Role Phone Cristian Herring DO Primary Care Provider [phone]- [phone] Ilda Shine DEPARTMENT SUPERVISOR Unavailable +1- [phone] Allergies No known active allergies Medications buPROPion XL (WELLBUTRIN XL) 150 mg 24 hr tablet Active DULoxetine DR (CYMBALTA) 60 mg capsule Take 1 capsule (60 mg total) by mouth 7 Active estradioL (ESTRACE) 0.01 % (0.1 mg/gram) vaginal cream Insert 1gm per vagina at bedtime 2x/wk. Active estradioL (ESTRACE) 1 mg tablet 1 tablet (1 mg total) 3 Active liraglutide, weight loss, (Saxenda) 3 mg/0.5 mL (18 mg/3 mL) pen injector PLEASE SEE ATTACHED FOR DETAILED DIRECTIONS Active lisinopriL (PRINIVIL,ZESTR IL) 10 mg tablet Take by mouth 7 Active metoprolol XL (TOPROL-XL) 50 mg extended release tablet 1 tablet (50 mg total) 4 Active lisinopriL (PRINIVIL,ZESTR IL) 10 mg tablet 1 tablet (10 mg total) Active METOPROLOL SUCCINATE ORAL Activ e Active Problems Problem Noted Date Diagnosed Date Depression 05/06/2020 Hypertension 01/07/2014 Overview (05/27/2016): Hypertension Arthralgia 01/07/2014 Overview (05/27/2016): Joint pain Immunizations Immunization Administration Dates Next Due MMR 09/21/2016 Surgical History Surgery Date Site/Laterality Comments OTHER SURGICAL HISTORY in uteral surgery HYSTERECTOMY SECTION Medical History Medical History Date Comments Depression with anxiety Tachycardia Sinus problem Hypertension Chronic headaches Arthritis Family History Medical History Relation Name Comments Osteoarthritis Father Other Father Alive and well; Lung cancer Father's Brother Breast cancer Father's Sister Arthritis Mother Lung cancer Mother Other Mother lung cancer; Ca use of : lung cancer Lung cancer Paternal Grandfather Breast cancer Paternal Grandmother Rheum arthritis Sister Relation Name Status Comments Father Alive Father's Brother Father's Sister Mother Paternal Grandfather Paternal Grandmother Sister Social History Tobacco Use Types Packs/Day Years [...] on file Legal Sex Female 7:42 PM GASKET SUPERVISOR Gender Identity Not on file Sexual Orientation Not on file Obstetrics History Last Filed Vital Signs Vital Sign Reading Time Taken Comments Blood Pressure 116/79 05/06/2020 12:53 PM CDT Pulse 91 05/06/2020 12:53 PM CDT Temperature 35.9 C (96.7 F) 05/06/2020 12:53 PM CDT Respiratory Rate - - Oxygen Saturation - - Inhaled Oxygen Concentration - - Weight 81.2 kg (179 lb) 01/31/2024 9:32 AM GASKET SUPERVISOR Height 147.3 cm (4' 9.99 ) 01/31/2024 9:32 AM CS T Body Mass Index 37.42 01/31/2024 9:32 AM GASKET SUPERVISOR Plan of Treatment Health Maintenance Due Date Last Done Comments Colon Cancer Screening-Colonoscopy 1964 Depression Screening 1964 Hepatitis C Screening 1964 DTaP/Tdap/Td Vaccine (1 - Tdap) 12/22/1975 Hepatitis B Screening 1982 Regular Well Visit/Exam 18-64 1982 Zoster Vaccine (1 of 2) 2014 Influenza Vaccine (#1) 2023 Breast Cancer Screening-Mammogram 01/30/2025 01/31/2024, 12/09/2022 Pneumococcal vaccine <65 Aged Out No longer eligible based on patient's age to complete this topic Procedures Procedure Name Priority Date/Time Associated Diagnosis Comments DIAGNOSTIC MAMMOGRAM BILATERAL W NABIL Schedule Routine, Read Routine (OP Routine) 01/31/2024 10:40 AM GASKET SUPERVISOR Mass of left breast, unspecified quadrant from Last 3 Months or Most Recently Relevant to Health Maintenance Results * Diagnostic Mammogram Bilateral W Nabil (01/31/2024 10:40 AM GASKET SUPERVISOR) Anatomical Region Laterality Modality Breast Bilateral Mammography 01/31/2024 11:2 4 AM GASKET SUPERVISOR Impressions 01/31/2024 1:14 PM GASKET SUPERVISOR 1. Probably benign masses in the left breast at 4:00 and 3:00 are not significantly changed dating back to 12/31/2022. Recommend follow up left breast ultrasound in 12 months. 2. No mammographic evidence of malignancy in either breast. OVERALL FINAL ASSESSMENT: BI-RADS Category 3: Probably Benign. RECOMMENDATION: Recommend follow-up diagnostic breast imaging in 12 months, at which time patient will be due for annual bilateral mammogram. Dictated by: Mely Gomez M.D. The radiology attending physician has personally reviewed this study, and had reviewed and/or edited this written report and agrees with it. Electronically signed by: Brenden Au MD Narrative 01/31/2024 1:14 PM GASKET SUPERVISOR EXAMINATION: BILATERAL DIGITAL DIAGNOSTIC MAMMOGRAM INCLUDING CAD AND BILATERAL DIGITAL BREAST TOMOSYNTHESIS; LEFT BREAST SONOGRAM HISTORY: 58-year-old woman presenting for follow-up of probably benign sonographic findings in the left breast. She is also due for annual mammogram. COMPARISON: 07/29/2023 left breast ultrasound and additional prior studies dating back to 2019. TECHNIQUE: Full field digital mammographic views of BOTH breasts were performed, including computer aided detection (CAD) and BILATERAL digital breast tomosynthesis (DBT). Directed ultrasound evaluation of the LEFT breast was performed. BREAST PARENCHYMAL COMPOSITION: There are scattered areas of fibroglandular density. MAMMOGRAM FINDINGS: Additional views, the asymmetries of the LEFT CC and LEFT MLO views decreased in conspicuity and appear similar to prior. No new suspicious abnormality EITHER breast. SONOGRAM FINDINGS: Targeted sonographic evaluation of the left breast at the areas of probably benign findings was performed. In the left breast at 4:00, 7 cm from the nipple there is an unchanged oval circumscribed hypoechoic mass without internal vascularity. The mass measures approximately 1.0 x 1.2 x 0.6 cm and is not significantly changed dating back to 12/31/2022, accounting for differences in technique. In the left breast at 3:00, 6 cm from the nipple there is an unchanged oval circumscribed hypoechoic mass without internal vascularity. The mass measures approximately 1.1 x 0.3 x 0.6 cm and is not significantly changed dating back to 12/31/2022, accounting for differences in technique. Procedure Note Brenden Au MD - 01/31/2024 EXAMINATION: BILATERAL DIGITAL DIAGNOSTIC MAMMOGRAM INCLUDING CAD AND BILATERAL DIGITAL BREAST TOMOSYNTHESIS; LEFT BREAST SONOGRAM HISTORY: 58-year-old woman presenting for follow-up of probably benign sonographic findings in the left breast. She is also due for annual mammogram. COMPARISON: 07/29/2023 left breast ultrasound and additional prior studies dating back to 2019. TECHNIQUE: Full field digital mammographic views of BOTH breasts were performed, including computer aided detection (CAD) and BILATERAL digital breast tomosynthesis (DBT). Directed ultrasound evaluation of the LEFT breast was performed. BREAST PARENCHYMAL COMPOSITION: There are scattered areas of fibroglandular density. MAMMOGRAM FINDINGS: Additional views, the asymmetries of the LEFT CC and LEFT MLO views decreased in conspicuity and appear similar to prior. No new suspicious abnormality EITHER breast. SONOGRAM FINDINGS: Targeted sonographic evaluation of the left breast at the areas of probably benign findings was performed. In the left breast at 4:00, 7 cm from the nipple there is an unchanged oval circumscribed hypoechoic mass without internal vascularity. The mass measures approximately 1.0 x 1.2 x 0.6 cm and is not significantly changed dating back to 12/31/2022, accounting for differences in technique. In the left breast at 3:00, 6 cm from the nipple there is an unchanged oval circumscribed hypoechoic mass without internal vascularity. The mass measures approximately 1.1 x 0.3 x 0.6 cm and is not significantly changed dating back to 12/31/2022, accounting for differences in technique. IMPRESSION: 1. Probably benign masses in the left breast at 4:00 and 3:00 are not significantly changed dating back to 12/31/2022. Recommend follow up left breast ultrasound in 12 months. 2. No mammographic evidence of malignancy in either breast. OVERALL FINAL ASSESSMENT: BI-RADS Category 3: Probably Benign. RECOMMENDATION: Recommend follow-up diagnostic breast imaging in 12 months, at which time patient will be due for annual bilateral mammogram. Dictated by: Mely Gomez M.D. The radiology attending physician has personally reviewed this study, and had reviewed and/or edited this written report and agrees with it. Electronically signed by: Brenden Au MD [facility] DEPARTMENT SUPERVISOR IMG MAMMO PROCEDURES Final Result from Last 3 Months or Most Recently Relevant to [place] [address] [employer] OPEN ACCESS BLUE ACC CHOICE OOS BLUE ACCESS OOS BLUE [employer] CHOICE OOS [employer] OPEN ACCESS Care Teams Strategic Partnership Manager Relationship Specialty Start Date End Date Cristian Herring DO PCP - General Internal Medicine 03/13/20 Ilda Shine NP [address] [place] [address] Referring Physician Nurse Practitioner 01/04/23
--- OUTSIDE RECORDS SUMMARY | 2024-05-28 14:14 | XMS_ITS | Referral Summary ---
Author Organization [facility] Address [address] [place] [address] Care Team Providers Care Supervisor Wound Name Role Phone Cristian Herring DO Primary Care Provider [phone]- [phone] Ilda Shine CONTINUOUS VULCANIZING MACHINE OPERATOR Unavailable +1- [phone] Allergies No known active allergies Medications buPROPion [...] Immunization Administration Dates Next Due MMR 09/21/2016 Social History Tobacco Use Types Packs/Day Years [...] on file Legal Sex Female 7:42 PM DIRECTOR DERMATOLOGY Gender Identity Not on file Sexual Orientation Not on file Last Filed Vital Signs Vital Sign Reading Time Taken Comments Blood Pressure 116/79 05/06/2020 12:53 PM CDT Pulse 91 05/06/2020 12:53 PM CDT Temperature 35.9 C (96.7 F) 05/06/2020 12:53 PM CDT Respiratory Rate - - Oxygen Saturation - - Inhaled Oxygen Concentration - - Weight 81.2 kg (179 lb) 01/31/2024 9:32 AM DIRECTOR DERMATOLOGY Height 147.3 cm (4' 9.99 ) 01/31/2024 9:32 AM CS T Body Mass Index 37.42 01/31/2024 9:32 AM DIRECTOR DERMATOLOGY Plan of Treatment Not on file Procedures Procedure Name Priority Date/Time Associated Diagnosis Comments DIAGNOSTIC MAMMOGRAM BILATERAL W NABIL Schedule Routine, Read Routine (OP Routine) 01/31/2024 10:40 AM DIRECTOR DERMATOLOGY Mass of left breast, unspecified quadrant from Last 3 Months or Most Recently Relevant to Health Maintenance Results * Diagnostic Mammogram Bilateral W Nabil (01/31/2024 10:40 AM DIRECTOR DERMATOLOGY) Anatomical Region Laterality Modality Breast Bilateral Mammography 01/31/2024 11:2 4 AM DIRECTOR DERMATOLOGY Impressions 01/31/2024 1:14 PM DIRECTOR DERMATOLOGY 1. Probably benign masses in the left [...] Brenden Au MD Narrative 01/31/2024 1:14 PM DIRECTOR DERMATOLOGY EXAMINATION: BILATERAL DIGITAL DIAGNOSTIC MAMMOGRAM INCLUDING CAD [...] for differences in technique. Procedure Note Brenden uA MD - 01/31/2024 EXAMINATION: BILATERAL DIGITAL DIAGNOSTIC [...] it. Electronically signed by: Brenden Au MD Ada Blunt NP IMG MAMMO PROCEDURES Final Result from Last 3 Months or Most Recently Relevant to Health Maintenance Insurance [employer] OPEN ACCESS BLUE [email or web address] CHOICE OOS BLUE ACCESS OOS BLUE ACC CHOICE OOS [employer] OPEN ACCESS Care Teams Supervisor Wound Relationship Specialty Start Date End Date Cristian Herring DO PCP - General Internal Medicine 03/13/20 Ilda Shine NP [address] [place] [address] Referring Physician Nurse Practitioner 01/04/23
--- OUTSIDE RECORDS SUMMARY | 2024-05-28 14:14 | XMS_ITS | Encounter Summary ---
Author Organization [facility] Healthcare Address [address] [place] [address] Care Team Providers Care Pilot Captain Name Role Phone Unavailable Primary Care Provider Unavailabl e Reason for Visit * Diagnostic Imaging (Routine) - Closed Specialty Diagnoses / Procedures Referred By Contac t Referred To Contact Procedures Breast Imaging Screening Outside Reference Transcribed Order, Provider Referral ID Status Reason Start Date Expiration Date Visits Re quested Visits Authorized [id number] Closed 01/19/2023 02/18/2024 1 1 Encounter Details Date Type Department Care Team (Late st Contact Info) Description 10/22/2011 Hospital Encounter [facility] [address] [place] [address] [id number] Social History Tobacco Use Types Packs/Day Years [...] on file Legal Sex Female 7:42 PM LIQUOR ESTABLISHMENT MANAGER Gender Identity Not on file Sexual [...] CDT) Impressions [facility] - 01/19/2023 8:48 AM LIQUOR ESTABLISHMENT MANAGER These images are for Reference purposes only and have not been reviewed by [facility] Radiology. There will be no report generated by a [facility] Radiologist. Narrative [facility] - 01/19/2023 8:48 AM LIQUOR ESTABLISHMENT MANAGER EXAMINATION: Images For Reference Purposes Only us Provider Transcribed Order IMG MAMMO PROCEDURES Final Result [facility] documented in this encounter Visit Diagnoses Not on filedocumented in this encounter
--- OUTSIDE RECORDS SUMMARY | 2024-05-28 14:14 | XMS_ITS | Encounter Summary ---
Author Organization [facility] Healthcare Address [address] [place] [address] Care Team Providers Care Roving Department End Finder Name Role Phone Unavailable Primary Care Provider Unavailabl e Reason for Visit * Diagnostic Imaging (Routine) - Closed Specialty Diagnoses / Procedures Referred By Contac t Referred To Contact Procedures Breast Imaging Screening Outside Reference Transcribed Order, Provider Referral ID Status Reason Start Date Expiration Date Visits Re quested Visits Authorized [id number] Closed 01/19/2023 02/18/2024 1 1 Encounter Details Date Type Department Care Team (Late st Contact Info) Description 03/04/2007 Hospital Encounter [facility] [address] [place] [id number] Social History Tobacco Use Types Packs/Day [...] on file Legal Sex Female 7:42 PM TARIFF COMPILER Gender Identity Not on file Sexual Orientation Not on file documented as of this encounter Functional Status documented as of this encounter Plan of Treatment Not on file documented as of this encounter Procedures Procedure Name Priority Date/Time Associated Diagnosis Comments BREAST IMAGING MG SCREENING OUTSIDE REFERENCE Routine 03/04/2007 12:00 AM TARIFF COMPILER documented in this encounter Results * Breast Imaging Screening Outside Reference (03/04/2007 12:00 AM TARIFF COMPILER) Impressions [facility] - 01/19/2023 8:44 AM TARIFF COMPILER These images are for Reference purposes only and have not been reviewed by [facility] Radiology. There will be no report generated by a [facility] Radiologist. Narrative [facility] - 01/19/2023 8:44 AM TARIFF COMPILER EXAMINATION: Images For Reference Purposes Only us Provider Transcribed Order IMG MAMMO PROCEDURES Final Result [facility] documented in this encounter Visit Diagnoses Not on filedocumented in this encounter
--- OUTSIDE RECORDS SUMMARY | 2024-05-28 14:15 | XMS_ITS | Clinical Summary ---
Author Organization [facility] Address [address] [place] [address] Care Team Providers Care Salon Receptionist Name Role Phone Unavailable Primary Care Provider Unavailabl e Source Comments [facility],non-owned Affiliates and Associated Physician Practices is amultiple site organization consisting of ambulatory clinics and hospital sitesin [place], [place], [place]. This disclosure is being madepursuant to the Care Everywhere program and may not contain all information available regarding this patient. Last updated 17.Last Guide [facility] Allergies No known active allergies Immunizations Name Administration Dates Next Due MMR 09/21/2016 Social History Tobacco Use Types Packs/Day Years Used Date Smoking Tobacco: Never Assessed Sex and Gender Information Value Date Recorded Sex Assigned at Not on file Gender Identity Not on file Sexual Orientation Not on file Plan of Treatment Health Maintenance Due Date Last Done Comments COLOGUARD (AGES 45-75) - COL ON CA SCREENING 1964 COLON MONITORING 1964 COLONOSCOPY - COLON CA SCREENING 1964 CT COLONOGRAPHY - COLON CA SCREENING 1964 Colorectal Cancer Screening 1964 FIT - COLON CA SCREENING 1964 FLEX SIG - COLON CA SCREENING 1964 LIPID TESTING 1964 MAMMOGRAM 1964 PAP SMEAR 1964 HIV SCREENING 12/22/1979 HEPATITIS C SCREENING 12/17/1982 DTAP/TDAP/TD VACCINES (1 - Tdap) 12/22/1983 HEPATITIS B VACCINE (1 of 3 - 19+ 3-dose series) 12/22/1983 PNEUMOCOCCAL VACCINE 50+ (1 of 1 - PCV) 2014 ZOSTER VACCINE (1 of 2) 2014 COVID-19 VACCINE (2023-2 5 season) 2023 DEPRESSION SCREENING 02/22/2024 INFLUENZA VACCINE (Season Ended) 2024 HIB VACCINE Aged Out No longer eligi ble based on patient's age to complete this topic HPV VACCINE Aged Out No longer eligi ble based on patient's age to complete this topic MENINGOCOCCAL (Group B) VACC INE SHARED DECISION-MAKING Aged Out No longer eligibl e based on patient's age to complete this topic MENINGOCOCCAL GROUPS A/C/Y/W VACCINE Aged Out No longer eligible b ased on patient's age to complete this topic PNEUMOCOCCAL VACCINE Aged Out No long er eligible based on patient's age to complete this topic
--- OUTSIDE RECORDS SUMMARY | 2024-05-28 14:15 | XMS_ITS | CONTINUITY OF CARE DOCUMENT ---
Author Name shane sherlybib Address Unknown Organization [facility] Address [address] [address] [place] [address] Phone [phone] Care Team Providers Care Enrolled Agent Name Role Phone Junaid Kat MD Unavailable SALOMÓN ROMEO DO Unavailable SALOMÓN ROMEO DO Unavailable PROBLEMS Condition Status Date Provider Notes HTN active Junaid Kat MD Sinus tachycardia active Junaid Kat MD Dyspnea on exertion nl echo and stress nuclear 2017 active Junaid Kat MD SVT active Mechelle Price MD PACs active Mechelle Price MD LAY, moderate - has a cpap machine active T blanche Kat MD ENCOUNTERS Date Type Provider Location Encounter Diag nosis - In-person encounter Office Visit Junaid Kat MD [facility] Dyspnea on exertion nl echo and stress nuclear 2017OSA, moderate - has a cpap machine - In-person encounter Office Visit Junaid Kat MD [facility] LAY, moderate - has a cpap machine - In-person encounter Office Visit Junaid Kat MD [facility] - In-person encounter Office Visit Junaid Kat MD [facility] - In-person encounter Office Visit Mechelle Price MD [facility] SVTPACs - In-person encounter Office Visit Junaid Kat MD [facility] - In-person encounter Office Visit Junaid Kat MD [facility] HTNSinus tachycardia VITAL SIGNS Date Observation Value Provider Body Mass Index (Ratio) 36.39 kg/m2 Beck Kat MD blood pressure, diastolic 80 mm[Hg] Li nkLogpaloma blood pressure, systolic 136 mm[Hg] Marge kLogic blood pressure, cuff size regular Cy ntromy Grossman blood pressure, diastolic 80 mm[Hg] Cy ntromy Grossman blood pressure, systolic 136 mm[Hg] Yesenia stephen Grossman respiratory rate E&M 16 /min Smiley Grossman oxygen saturation, oximetry 97 % Smileystephen Grossman pulse rate 98 /min Smiley Campbel l weight E&M 199 [lb_av] Smiley Campbel l height E&M 62 [in_i] Smiley Campbel l Body Mass Index (Ratio) 36.03 kg/m2 Beck Kat MD blood pressure, cuff size large Lynnette gtz [place] blood pressure, diastolic 84 mm[Hg] Lynnette gtz [place] blood pressure, systolic 126 mm[Hg] Bushra downs [place] oxygen saturation, oximetry 96 % Pantera [place] respiratory rate E&M 16 /min Pantera [place] pulse rate 90 /min Pantera [place] weight E&M 197 [lb_av] Pantera [place] height E&M 62 [in_i] Pantera [place] Body Mass Index (Ratio) 34.56 kg/m2 Beck Kat MD blood pressure, diastolic 80 mm[Hg] Lynnette Cardona blood pressure, systolic 140 mm[Hg] [facility], oximetry 96 % [facility] respiratory rate E&M 16 /min [facility] pulse rate 86 /min [facility] weight E&M 189 [lb_av] [facility]&M 62 [in_i] [facility] Body Mass Index (Ratio) 32.74 kg/m2 Reza Price MD blood pressure, cuff size regular Phylicia ladd Hernandez blood pressure, diastolic 80 mm[Hg] Phylicia ladd David blood pressure, systolic 120 mm[Hg] Mona aguilar Hernandez oxygen saturation, oximetry 97 % Helen Hernandez respiratory rate E&M 16 /min Helen Hernandez pulse rate 93 /min Helen Hernandez weight E&M 179 [lb_av] Helen Hernandez height E&M 62 [in_i] Helen aDvid Body Mass Index (Ratio) 32.55 kg/m2 Beck Kat MD blood pressure, cuff size regular Grey Riley blood pressure, diastolic 98 mm[Hg] Grey Riley blood pressure, systolic 164 mm[Hg] Selin Riley oxygen saturation, oximetry 98 % Mirta Riley respiratory rate E&M 16 /min Mirta miller pulse rate 139 /min Mirta galicia weight E&M 178 [lb_av] Mirta goldmaner height E&M 62 [in_i] Mirta Maher lder blood pressure, diastolic 80 mm[Hg] Be britt Storm blood pressure, systolic 124 mm[Hg] Bet brittani Storm Body Mass Index (Ratio) 32.55 kg/m2 Beck Kat MD blood pressure, cuff size large Grey Abdallajosephine blood pressure, diastolic 80 mm[Hg] Grey Riley blood pressure, systolic 122 mm[Hg] Selin Abdallajosephine oxygen saturation, oximetry 96 % Mirta Abdallajosephine respiratory rate E&M 18 /min Mirta hassanjosephine pulse rate 99 /min Mirta Maher er weight E&M 178 [lb_av] Mirta Maher er height E&M 62 [in_i] Mirta Maher lder ALLERGIES No Known Drug Allergies RESULTS Date Observation Value Provider Reference Range Interpretation Location 6 ferritin, serum 85 ng/mL [facility] 15-150 6 iron saturation percent, serum 17 % [facility] 15-55 6 iron, serum 55 ug/dL [facility] 27-159 6 iron binding capacity, unsaturated 277 ug/dL [facility] 120-976 1227/08/0 6 iron binding capacity, total 332 ug/dL [facility] 360-503 0643/08/0 6 free thyroxine index 1.3 [facility] 1.2-4.9 6 triiodothyronine resin uptake 21 % [facility] 24-39 Low thyroxine, serum, total 6.2 ug/dL [facility] 4.5-12.0 6 thyroid stimulating hormone, serum 0.689 u[IU]/mL [facility] 0.450-4.500 6 hemoglobin A1C, blood, as % of total hemoglobin 5.7 % [facility] 4.8-5.6 High lipoprotein, beta, serum, point, quantitative, calculated 79 mg/dL [facility] 0-99 6 very low density lipoproteins 38 mg/dL [facility] 5-40 6 HDL cholesterol, serum 40 mg/dL [facility] >39 6 triglyceride, serum, random 189 mg/dL [facility] 0-149 High cholesterol, serum 157 mg/dL [facility] [phone]/08/0 6 basophil count, absolute 0.1 x10E3/uL [facility] 0.0-0.2 6 Eosinophil Absolute Count 0.5 X10E3/UL [facility] 0.0-0.4 High monocyte count, blood, automated 0.7 X10E3/UL [facility] 0.1-0.9 lymphocyte count, blood, automated 2.5 X10E3/UL [facility] 0.7-3.1 6 Absolute Neutrophils 6.1 X10E3/UL [facility] 1.4-7.0 6 basophils as percent of blood leukocytes 1 % [facility] Not Estab. 6 eosinophils as percent of blood leukocytes 5 % [facility] Not Estab. 6 monocytes as percent of blood leukocytes 7 % [facility] Not Estab. 6 lymphocytes as percent of blood leukocytes 25 % [facility] Not Estab. 6 neutrophils as percent of blood leukocytes 62 % [facility] Not Estab. platelet count 292 X10E3/UL [facility] 785-441 0592/08/0 6 red blood cell distribution width 13.4 % [facility] 11.7-15.4 mean corpuscular hemoglobin concentration, RBC 32.4 G/DL [facility] 31.5-35.7 6 mean corpuscular hemoglobin, RBC 27.8 pg [facility] 26.6-33.0 6 mean corpuscular volume, RBC 86 fL [facility] 79-97 hematocrit, blood 42.0 % [facility] 34.0-46.6 hemoglobin, blood 13.6 g/dL [facility] 11.1-15.9 erythrocyte (RBC) count 4.90 X10E6/UL [facility] 3.77-5.28 6 leukocyte count, blood 9.8 X10E3/UL [facility] 3.4-10.8 6 alanine aminotransferase (SGPT), serum 17 1/L [facility] 0-32 6 aspartate aminotransferase (SGOT), serum 18 1/L [facility] 0-40 6 alkaline phosphatase, serum 94 1/L [facility] 39-117 6 bilirubin, serum, total <0.2 mg/dL [facility] 0.0-1.2 6 albumin/globulin ratio, serum 1.5 [facility] 1.2-2.2 globulin, serum 3.1 [facility] 1.5-4.5 6 albumin, serum 4.5 g/dL [facility] 3.8-4.9 6 protein, total, serum 7.6 g/dL [facility] 6.0-8.5 6 calcium, serum 10.0 mg/dL [facility] 8.7-10.2 6 carbon dioxide, venous blood 27 mmol/L [facility] 20-29 6 chloride, serum 105 mmol/L [facility] 96-106 6 potassium, serum 5.0 mmol/L [facility] 3.5-5.2 6 sodium, serum 150 mmol/L [facility] 134-144 High urea nitrogen/creatinine ratio, serum 14 [facility] 9-23 6 eGFR if 100 mL/min/{1 .73_m2} [facility] >59 6 eGFR if not 86 mL/min/{1 .73_m2} [facility] >59 6 creatinine, serum 0.78 mg/dL [facility] 0.57-1.00 6 urea nitrogen, blood 11 mg/dL [facility] 6-24 6 blood glucose, random 110 mg/dL [facility] 65-99 High 6 folate, serum 15.0 NG/MLM [facility] 4.4 - 31.0 vitamin b12, serum 569.6 pg/mL [facility] 211.0 - 946.0 thyroid stimulating hormone, serum 0.805 ??IU/ML [facility] 0.270 - 4.200 6 ferritin, serum 52.6 ng/mL [facility] 13.0 - 150.0 anion gap, serum 14.2 [facility] - albumin/globulin ratio, serum 1.8 g/dL [facility] 1.1 - 2.5 globulin, serum 2.7 [facility] 2.3 - 3.8 urea nitrogen/creatinine ratio, serum 17.1 [facility] - Estimated Glomerular Filtration Rate (calc) 93.8 (?) [facility] 59.0 - 6 chloride, serum 103.8 mmol/L [facility] 98.0 - 107.0 6 potassium, serum 4.4 mmol/L [facility] 3.5 - 5.1 6 sodium, serum 145.0 mmol/L [facility] 136.0 - 145.0 6 creatinine, serum 0.7 mg/dL [facility] 0.5 - 1.0 carbon dioxide, venous blood 27.0 mmol/L [facility] 22.0 - 29.0 albumin, serum 4.9 g/dL [facility] 3.5 - 5.2 calcium, serum 9.9 mg/dL [facility] 8.6 - 10.2 aspartate aminotransferase (SGOT), serum 19.0 1/L [facility] 0.0 - 32.0 alkaline phosphatase, serum 74.0 1/L [facility] 40.0 - 130.0 alanine aminotransferase (SGPT), serum 14.0 1/L [facility] 0.0 - 33.0 protein, total, serum 7.6 g/dL [facility] 6.6 - 8.7 bilirubin, serum, total 0.2 mg/dL [facility] 0.0 - 1.2 6 urea nitrogen, blood 12.0 mg/dL LinkLog 6.0 - 20.0 6 blood glucose, random 93.0 mg/[facility] 74.0 - 99.0 6 red blood cell distribution width, size density 49.1 fL [facility] - 6 immature granulocytes, percentage of total cells, blood 0.3 % [facility] - 6 nucleated red blood cells as percent of blood leukocytes 0.3 % [facility] - 6 red blood cell (erythrocyte) count, per high power field 0.0 10*3/UL [facility] eosinophils as percent of blood leukocytes 3.7 % [facility] - 6 neutrophils as percent of blood leukocytes 60.1 % [facility] - 6 Absolute Neutrophils 4.6 CELLS/UL [facility] 1.5 - 7.8 6 basophils as percent of blood leukocytes 0.9 % [facility] - 6 Absolute Basophils 0.1 CELLS/UL [facility] 0.0 - 0.2 6 monocytes as percent of blood leukocytes 5.6 % [facility] - 6 Absolute Monocytes 0.4 CELLS/UL [facility] 0.2 - 1.0 6 lymphocytes as percent of blood leukocytes 29.4 % [facility] - 6 Absolute Lymphocytes 2.2 CELLS/UL [facility] 0.9 - 3.9 6 mean platelet volume 12.4 (?) [facility] - 6 platelet count 292.0 THOUSAND/ UL [facility] 100.0 - 400.0 6 mean corpuscular hemoglobin concentration, RBC 31.2 G/DL [facility] 31.0 - 38.0 6 mean corpuscular hemoglobin, RBC 27.9 pg [facility] 25.0 - 35.0 6 mean corpuscular volume, RBC 89.4 fL [facility] 75.0 - 100.0 6 hematocrit, blood 43.0 % [facility] 35.0 - 55.0 6 hemoglobin, blood 13.4 g/dL [facility] 11.5 - 16.5 6 erythrocyte count, whole blood 4.8 MILLION/U L [facility] 3.5 - 5.5 6 iron, serum 47.0 ug/dL [facility] 25.0 - 156.0 iron saturation percent, serum 12.5 % [facility] 20.0 - 50.0 Low iron binding capacity, total 375.2 ug/dL [facility] 250.0 - 450.0 hemoglobin A1C, blood, as % of total hemoglobin 5.7 % [facility] 4.0 - 5.6 High reticulocyte count, absolute 0.073 10*6 CELLS/UL [facility] - reticulocyte count, blood, uncorrected 1.52 % [facility] 0.50 - 2.00 HISTORY OF MEDICATION USE Medication Status Instructions Dates Provider Indications Com ments metoprolol succinate 50 mg tablet extended release 24 hr active TAKE 1 TABLET DAILY 09/15 Anna Upton HYDROXYCHLOROQUINE SULFATE 200 MG ORAL TABLET completed one tab twice daily 09/27 - 09/25 Pantera Perry MAGNESIUM OXIDE 400 MG ORAL TABLET completed ONE TAB TWICE A DAY 11/19 - 09/27 Layne O'Silverio FERRIC X-150 150 MG ORAL CAPSULE completed po daily 11/09 - 09/27 Layne O'Silverio VITAMIN B-1 TABLET completed once a day 10/05 - 09/27 Layne O'Silverio VITAMIN D CAPSULE completed take one pill a day 10/05 - 09/27 Layne O'Silverio lisinopril 10 mg tablet active 1 tablet by mouth once a day 10/05 Mirta Rliey metoprolol succinate 50 mg tablet extended release 24 hr completed one tab. daily 10/05 - 09/15 Ghulam Jolly RN needs seen before 90 day can be sent in duloxetine 60 mg capsule,delayed release(DR/EC) active Take 1 by mouth once a day 10/05 Mirta Riley SOCIAL HISTORY Date Observation Value Provider smoking, date started 5 Bel Grossman smoking history, tot al pack/day 1/2 ppd Smiley Grossman cigarette use yes Smiley morgan smoking status Former smoker Smiley kee social history reviewed E&M revi ewed - no changes required Anthony Garcia number of grandchildren Junaid Shaikh social history E&M S moking History: Mary nicole is a former smoker. David Shaikh smoking, date started 5 David Shaikh smoking history, tot al pack/day 1/2 ppd David Nachoscar cigarette use yes David Nachoscar smoking status Former smoker David Nachoscar social history reviewed E&M revi ewed - no changes required David Shaikh social history reviewed E&M revi ewed - no changes required David Moore smoking, date started 5 Pantera [place] smoking history, tot al pack/day 1/2 ppd Pantera [place] cigarette use yes Pantera [place] smoking status Former smoker Pantera Parryu m social history reviewed E&M revi ewed - no changes required Junaid Kat MD social history E&M S moking History: Mary nicole is a former smoker. Junaid Kat MD smoking, date started 5 Layne O'Silverio smoking history, tot al pack/day 1/2 ppd Layne O'Silverio cigarette use yes Layne O'Silverio smoking status Former smoker Layne O'Bebe l social history E&M S moking History: Mary nicole is a former smoker. Mechelle Price MD social history reviewed E&M revi ewed - no changes required Mechelle Price MD smoking, date started 5 Helen Hernandez smoking history, tot al pack/day 1/2 ppd Helen Hernandez cigarette use yes Helen Hernandez smoking status Former smoker Helen Hernandez social history reviewed E&M revi ewed - no changes required Junaid Kat MD smoking, date started 5 Mirta Rosemary smoking history, tot al pack/day 1/2 ppd Mirta Rosemary cigarette use yes Mirta burton smoking status Former smoker Mirta Raygozapia mckeon smoking status Former smoker Yohana choi social history reviewed E&M revi ewed - no changes required Junaid Kat MD smoking, date started 5 Mirta Roesmary smoking history, tot al pack/day 1/2 ppd Mirta Raygozawendy cigarette use yes Mirta Lianne burton smoking status Former smoker Mirta Raygozapia mckeon FUNCTIONAL STATUS Date Observation Value Provider periodic limb movement index absent (0) Yohana Storm FAMILY HISTORY Family Member Condition Father Negative FH of Coron abundio Artery Disease Mother Negative FH of Coron abundio Artery Disease INSURANCE PROVIDERS Payer name Policy type / Coverage type [place] [employer] ID [facility] [id number] 1 ADVANCE DIRECTIVES Name Date DISCUSSED - NO DECISION MADE TREATMENT PLAN Date Name Performer [id number],S, B P today: 136/80 P rior BP: 126/84 (09/26/2019) Prior 10 Yr Risk Heart Disease: Not enough information (10/13/2016) Labs Reviewed: C reat: 0.78 (09/27/2019) C hol: 157 (09/27/2019) HDL: 40 (09/27/2019) Anthony Garcia [id number],B, Anthony Pakza i [id number],S, Anthony Ahmedza i [id number],B, Anthony Ahmedza i Cardiology: B P today: 136/80 P rior BP: 126/84 (09/26/2019) Prior 10 Yr Risk Heart Disease: Not enough information (10/13/2016) Labs Reviewed: C reat: 0.78 (09/27/2019) C hol: 157 (09/27/2019) HDL: 40 (09/27/2019) Anthony Ahmedzai Cardiology Anthony Ahmedzai Cardiology Anthony Ahmedzai Cardiology Anthony Ahmedzai TeleHealth, 6 month fu [place] [facility], 6 month fu [facility] [place] [facility], 6 month fu [facility] [place] [facility], 6 month fu [facility] [place] [facility], 6 month fu David Nac ht [facility], 6 month fu David Nac ht Cardiology Junaid Kat MD Cardiology Junaid Kat MD Cardiology Junaid Kat MD Cardiology Junaid Kat MD Cardiology Junaid Kat MD Cardiology Junaid Kat MD Cardiology Junaid Kat MD EP:Patient had a min HR of 63 bpm, max HR of 231 bpm, and avg HR of 94 b pm. Predominant underlying rhythm was Sinus Rhythm. 2 S upraventricular Tachycardia runs occurred, the run with the fastest i nterval lasting 9 beats with a max rate of 231 bpm (avg 210 bpm); the r un with the fastest interval was also the longest. Isolated SVEs were rare ( <1.0%), SVE Couplets were rare (<1.0%), and SVE Triplets were rare ( <1.0%). Isolated VEs were rare (<1.0%), and no VE Couplets or VE T riplets were present. Added magnesium oxide 400 mg PO bid H er updated medication list for this problem includes: Lisinopril 10 Mg Tabs (Lisinopril) ..... One tab. daily Metoprolol Succinate 50 Mg Tb24 (Metoprolol succinate) ..... One tab. daily Orders: 9 9244 MOD C [facility]plex ([id number]) Mechelle Price MD EP: O rders: 9 9244 MOD C [facility] ([id number]) Her updated medication list for this problem includes: Lisinopril 10 Mg Tabs (Lisinopril) ..... One tab. daily Metoprolol Succinate 50 Mg Tb24 (Metoprolol succinate) ..... One tab. daily Mechelle Price MD Cardiology Follow up Junaid isaac MD Cardiology Follow up Junaid isaac MD Cardiology New Patient Junaid chiu MD Cardiology New Patient Junaid chiu MD Date Name Sleep Study Home IRON AND TOTAL IRON BINDING CAPACITY FERRITIN CBC (INCLUDES DIFF/P LT) HEMOGLOBIN A1c TSH, free T4, total T3 LIPID PANEL COMPREHENSIVE METABO LIC PANEL, W/EGFR HEMOGLOBIN A1c MAGNESIUM COMPREHENSIVE METABO LIC PANEL, W/EGFR IRON AND TOTAL IRON BINDING CAPACITY FERRITIN CBC (INCLUDES DIFF/P LT) ANATOLIY Montano HEMOGLOBIN A1c TSH, 3RD GENERATION W/REFLEX TO FT4 COMPREHENSIVE METABO LIC PANEL, W/EGFR VITAMIN B12 RETICULOCYTE COUNT IRON AND TOTAL IRON BINDING CAPACITY FOLATE, SERUM FERRITIN CBC (INCLUDES DIFF/P LT) HISTORY OF PROCEDURES Procedure Date Procedure Name Provider Procedure Notes S tatus EKG Junaid Kat MD completed EKG Junaid Kat MD completed EKG Junaid Kat MD completed ZIO Holter Hookup Mechelle ledesma MD completed Stress EKG Krystal Tabares MD complet ed Regadenoson, 4 units Junaid Kat MD completed Cardiolite, 2 units Junaid Kat MD completed SPECT Images Krystal Tabares MD compl eted EKG Mechelle webster MD completed SNOMED-CT: 566956141605133 Current Medications Documented Mechelle Price MD completed SNOMED-CT: 18848912 Physical Exam, Performed: Pulse Exam of Foot Junaid Kat MD completed SNOMED-CT: 730810271710138 Current Medications Documented Junaid Kat MD completed Stress EKG Krystal Tabares MD [facility] ed SNOMED-CT: 63105095 Physical Exam, Performed: Pulse Exam of Foot Junaid Kat MD completed EKG Junaid Kat MD completed SNOMED-CT: 343280973914713 Current Medications Documented Junaid Kat MD completed
--- OUTSIDE RECORDS SUMMARY | 2024-05-28 14:15 | XMS_ITS | Data Portability ---
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 Plan of Treatment Reminders Order Date Submit Date Provider Last Modified By Organization Details Last Modified Time Details Appointments None recorded. Lab HbA1c (hemoglobin A1c), blood 2022 023 [facility] (Lab), [address] [place], [address], 3 06:19:05 lipid panel, blood 2022 023 [facility] (Lab), [address] [place], [address], 3 06:19:06 vitamin D, 25-hydroxy, total, serum 2022 023 [facility] (Lab), [address] [place], [address], 3 06:19:09 CBC w/ auto diff 2022 023 [facility] (Lab), [address] [place], [address], 3 06:19:04 CMP, serum or plasma 2022 023 [facility] (Lab), [address] [place], [address], 3 06:19:07 TSH, serum or plasma 2022 023 [facility] (Lab), [address], [place], [address], 3 06:19:08 Referral None recorded. Procedures None recorded. Surgeries None recorded. Imaging None recorded. Medication Orders estradiol 1 mg tablet 2022 023 [id number], [address] [place], [address], 3 14:23:08 Estrace 0.01% (0.1 mg/gram) vaginal cream 2022 023 [id number], [address] [place], [address], 3 14:23:08 Saxenda 3 mg/0.5 mL (18 mg/3 mL) subcutaneou s pen injector 2022 023 [id number], [address] [place], [address], 3 11:05:13 Saxenda 3 mg/0.5 mL (18 mg/3 mL) subcutaneou s pen injector 2022 023 [id number] [address] [place] [address], [address], 3 16:02:12 Patient TargetsNo targets recorded. Patient InstructionsNo instructions recorded. Reason for Referral None Reported. Results Created Date Observation Date Name Description Value Unit Range Abnormal Flag Note LastModifiedBy Organization Detail LastModifiedTime 07/13/19 23 07/12/2022 CBC W/DIF F WBC 8.1 10'3/ uL 3.6-10 .2 Not Available [facility] (Lab) [address] , [place], [address], 07/13/2022 06:19:04 07/13/19 23 07/12/2022 CBC W/DIF F RBC 4.76 10'6/ uL (based on docume nted legal sex) 4.10-5 .30 Not Available [facility] (Lab) [address], [place], [address], 07/13/2022 06:19:04 07/13/1907/12/2022 CBC W/DIF F HGB 12.7 g/dL (based on docume nted legal sex) 11.9-1 5.8 Not Available [facility] (Lab) [address], [place], [address], 07/13/2022 06:19:04 07/13/1907/12/2022 CBC W/DIF F HCT 43.5 % (based on docume nted legal sex) 37.4-4 8.3 Not Available [facility] (Lab) [address], [place], [address], 07/13/2022 06:19:04 07/13/1907/12/2022 CBC W/DIF F MCV 91.4 fL 82.0-9 9.0 Not Available [facility] (Lab) [address], [place], [address], 07/13/2022 06:19:04 07/13/19 23 07/12/2022 CBC W/DIF F MCH 26.7 pg 27.0-3 3.0 low Not Available [facility] (Lab) [address], [place], [address], 07/13/2022 06:19:04 07/13/1907/12/2022 CBC W/DIF F MCHC 29.2 g/dL 32.0-3 6.0 low Not Available [facility] (Lab) [address] [place], [address], 07/13/2022 06:19:04 07/13/19 23 07/12/2022 CBC W/DIF F RDW 15.7 % 11.0-1 5.0 high Not Available [facility] (Lab) [address], [place], [address], 07/13/2022 06:19:04 07/13/19 23 07/12/2022 CBC W/DIF F plt 287 10'3/ uL 150-45 0 Not Available [facility] (Lab) [address], [place], [address], 07/13/2022 06:19:04 07/13/19 23 07/12/2022 CBC W/DIF F MPV 12.1 fL 9.8-12 .7 Not Available [facility] (Lab) [address], [place], [address], 07/13/2022 06:19:04 07/13/19 23 07/12/2022 CBC W/DIF F NRBC's 0.0 % 0 Not Available [facility] (Lab) [address], [place], [address], 07/13/2022 06:19:04 07/13/1907/12/2022 CBC W/DIF F absolute NRBCs 0.0 10'3/ uL 0 Not Available [facility] (Lab) [address], [place], [address], 07/13/2022 06:19:04 07/13/19 23 07/12/2022 CBC W/DIF F neutrophils 60.8 % 37.0-7 2.0 Not Available [facility] (Lab) [address], [place], [address], 07/13/2022 06:19:04 07/13/19 23 07/12/2022 CBC W/DIF F lymphocytes 28.7 % 16.0-4 8.0 Not Available [facility] (Lab) [address], [place], [address], 07/13/2022 06:19:04 07/13/19 23 07/12/2022 CBC W/DIF F monocytes 5.9 % 4.0-14 .0 Not Available [facility] (Lab) [address] [place], [address], 07/13/2022 06:19:04 07/13/19 23 07/12/2022 CBC W/DIF F eosinophils 3.5 % 0.0-9. 0 Not Available [facility] (Lab) [address] [facility], [place], [address], 07/13/2022 06:19:04 07/13/19 23 07/12/2022 CBC W/DIF F basophils 0.9 % 0.0-2. 0 Not Available [facility] (Lab) [address] [facility], [place], [address], 07/13/2022 06:19:04 07/13/19 23 07/12/2022 CBC W/DIF F immature granulocytes 0.2 % no define d refere nce range Not Available [facility] (Lab) [address] [facility], [place], [address], 07/13/2022 06:19:04 07/13/19 23 07/12/2022 CBC W/DIF F absolute neutrophils 4.9 10'3/ uL 1.1-6. 0 Not Available [facility] (Lab) [address] [place], [address], 07/13/2022 06:19:04 07/13/19 23 07/12/2022 CBC W/DIF F absolute lymphocytes 2.3 10'3/ uL 0.7-3. 4 Not Available [facility] (Lab) [address] [place], [address], 07/13/2022 06:19:04 07/13/19 23 07/12/2022 CBC W/DIF F absolute monocytes 0.5 10'3/ uL 0.3-1. 0 Not Available [facility] (Lab) [address] [place], [address], 07/13/2022 06:19:04 07/13/19 23 07/12/2022 CBC W/DIF F absolute eosinophils 0.3 10'3/ uL 0.0-0. 6 Not Available [facility] (Lab) [address] [facility], [place], [address], 07/13/2022 06:19:04 07/13/19 23 07/12/2022 CBC W/DIF F absolute basophils 0.1 10'3/ uL 0.0-0. 1 Not Available [facility] (Lab) [address] [facility], [place], [address], 07/13/2022 06:19:04 07/13/19 23 07/12/2022 CBC W/DIF F absolute immature granulocytes 0.0 10'3/ uL 0.00-0 .10 2022 3:12 AM: P indic ates parti al resul ts on a panel have been relea sed. Addit ional resul ts will follo w. 2022 3:12 AM: This resul t has been final verif ied. No addit ional or douglas ed resul ts are expec karen. Not Available [facility] (Lab) [address] [facility], [place], [address], 07/13/2022 06:19:04 07/13/1907/12/2022 HEMOG LOBIN A1C hemoglobin A1C 5.8 % 0-5.6 high The Ameri can Diabe boris Assoc iatio n recom mends that a prima ry goal of thera py abbeul d be a HBA1C of < 7% and that physi cians shoul d reeva luate the treat ment regim en in patie nts with HBA1C value s consi stent ly > 8%. <5.7% Tosin l 5.7 - 6.4% Incre ased risk for diabe boris >=6.5 % Diagn ostic of diabe boris <7.0% Goal of thera py >8.0% Actio n sugge sted Not Available [facility] (Lab) [address] [place], [address], 07/13/2022 06:19:05 07/13/1907/12/2022 LIPID PANEL ,AMA (LDL- CALC) total cholesterol 158 mg/dL 0-199 Not Available [facility] (Lab) [address] [facility], [place], [address], 07/13/2022 06:19:06 07/13/1907/12/2022 LIPID PANEL ,AMA (LDL- CALC) triglyceride s 116 mg/dL 0.00-1 50.00 NCEP Refer ence Value s for Trigl yceri dong: Tosin l: <150 mg/dL Borde rline High: 150 - 199 mg/dL High: 200 - 499 mg/dL Very High: >/= 500 mg/dL Not Available [facility] (Lab) [address] [place], [address], 07/13/2022 06:19:06 07/13/1907/12/2022 LIPID PANEL ,AMA (LDL- CALC) HDL cholesterol 60 mg/dL >40 Not Available [facility] (Lab) [address] [place], [address], 07/13/2022 06:19:06 07/13/1907/12/2022 LIPID PANEL ,AMA (LDL- CALC) LDL cholesterol 78 mg/dL 0-99 Cutof f value s recom merlin d by the Marcus nal Lindsay stero l Educa tion Progr am: ANNIE ABLE: Lindsay stero l <200 mg/dL LDL <100 mg/dL BORDE RLINE : Lindsay stero l 200-2 39 mg/dL LDL 101-1 59 mg/dL HIGHE R RISK: Lindsay stero l >240 mg/dL LDL >160 mg/dL , HDL <40 mg/dL Not Available [facility] (Lab) [address] [place], [address], 07/13/2022 06:19:06 05/22/20 23 07/12/2022 LIPID PANEL ,AMA (LDL- CALC) non-HDL cholesterol 98 mg/dL no refere nce range A reaso nable goal for non-H DL lindsay stero l is one that is 30 mg/dL highe r than the LDL lindsay stero l goal. Not Available [facility] (Lab) [address], [place], [address], 07/13/2022 06:19:06 07/13/1907/12/2022 LIPID PANEL ,AMA (LDL- CALC) chol/HDL ratio 2.6 . 0.0-5. 0 On June 15, 2022, [facility] labor atori hannah douglas ed the equat ion for calcu latin g estim ated low-d ensit y lipop rotei n-cho leste rol (LDL- C) from the Fried jesse equat ion to the Kylie n/Hop kins equat ion. This new equat ion is only valid for lipid panel s with trigl yceri dong < 400 mg/dL . Studi es morena demon strat ed that this new equat ion will impro ve the accur acy of LDL-C , espec ially in scena villlaobos when LDL-C mary ntrat ions are relat ively low (< 100 mg/dL ), trigl yceri dong are eleva karen, or patie nt is non-f astin g. Refer ences : - Kylie puckett, Jaylan Umanzor, Dwayne Kang , [facility] dudley linda, Lv Noe, Lv isaac, Damien de la vega , and Henry Mayer . 2013. Comp ariso n of a Novel Metho d vs the Fried jesse Equat ion for Estim ating Low-D ensit y Lipop rotei n Lindsay stero l Level s from the Stand cristiane Lipid Profi le. ASHLEY: The Journ al of the Ameri can Medic al Assoc iatio n 310 (19): 2060- . - Amrik salamanca V, Arpita J, Constantine salamanca A, Alex M, Frank churchill R, Jenifer salamanca E, Rodríguez de la vega RS, Moreno SR, Kylie n SS. Fast ing Versu s Nonfa sting and Low-D ensit y Lipop rotei n Lindsay stero l Accur acy. Circu lawrence n. 2017Feb 22;137 (1):1 0-19. Not Available [facility] (Lab) [address] [facility], [place], [address], 07/13/2022 06:19:06 07/13/19 23 07/12/2022 CMP(C OMPRE HENSI VE METAB OLIC PANEL ) sodium 139 mmol/ L 133-14 6 Not Available [facility] (Lab) [address] [facility], [place], [address], 07/13/2022 06:19:07 07/13/19 23 07/12/2022 CMP(C OMPRE HENSI VE METAB OLIC PANEL ) potassium 4.3 mmol/ L 3.5-5. 1 Not Available [facility] (Lab) [address] [facility], [place], [address], 07/13/2022 06:19:07 07/13/19 23 07/12/2022 CMP(C OMPRE HENSI VE METAB OLIC PANEL ) chloride 103 mmol/ L 98-107 Not Available [facility] (Lab) [address] [facility], [place], [address], 07/13/2022 06:19:07 07/13/19 23 07/12/2022 CMP(C OMPRE HENSI VE METAB OLIC PANEL ) carbon dioxide 30 mmol/ L 21-31 Not Available [facility] (Lab) [address] [place], [address], 07/13/2022 06:19:07 07/13/19 23 07/12/2022 CMP(C OMPRE HENSI VE METAB OLIC PANEL ) anion gap 6 mmol/ L 4-13 Not Available [facility] (Lab) [address] [place], [address], 07/13/2022 06:19:07 07/13/19 23 07/12/2022 CMP(C OMPRE HENSI VE METAB OLIC PANEL ) blood urea nitrogen 13 mg/dL 7-25 Not Available [facility] (Lab) [address] [facility], [place], [address], 07/13/2022 06:19:07 07/13/19 23 07/12/2022 CMP(C OMPRE HENSI VE METAB OLIC PANEL ) creatinine 0.68 mg/dL 0.60-1 .30 Not Available [facility] (Lab) [address] [facility], [place], [address], 07/13/2022 06:19:07 07/13/19 23 07/12/2022 CMP(C OMPRE HENSI VE METAB OLIC PANEL ) egfrcr (CKD-epi 2020) >90 mL/mi n/1.7 3_m2 >=60 Not Available [facility] (Lab) [address], [place], [address], 07/13/2022 06:19:07 07/13/19 23 07/12/2022 CMP(C OMPRE HENSI VE METAB OLIC PANEL ) calcium 9.1 mg/dL 8.3-10 .5 Not Available [facility] (Lab) [address] [facility], [place], [address], 07/13/2022 06:19:07 07/13/19 23 07/12/2022 CMP(C OMPRE HENSI VE METAB OLIC PANEL ) glucose 91 mg/dL 70-100 Not Available [facility] (Lab) [address] [facility], [place], [address], 07/13/2022 06:19:07 07/13/19 23 07/12/2022 CMP(C OMPRE HENSI VE METAB OLIC PANEL ) protein, total 6.9 g/dL 6.4-8. 3 Not Available [facility] (Lab) [address] [facility], [place], [address], 07/13/2022 06:19:07 07/13/19 23 07/12/2022 CMP(C OMPRE HENSI VE METAB OLIC PANEL ) albumin 3.7 g/dL 3.5-5. 0 Not Available [facility] (Lab) [address] [place], [address], 07/13/2022 06:19:07 07/13/19 23 07/12/2022 CMP(C OMPRE HENSI VE METAB OLIC PANEL ) ALT 13 units /L 9-43 Not Available [facility] (Lab) [address] [place], [address], 07/13/2022 06:19:07 07/13/19 23 07/12/2022 CMP(C OMPRE HENSI VE METAB OLIC PANEL ) alkaline phosphatase 75 units /L 34-104 Not Available [facility] (Lab) [address] [facility], [place], [address], 07/13/2022 06:19:07 07/13/19 23 07/12/2022 CMP(C OMPRE HENSI VE METAB OLIC PANEL ) AST 15 units /L 13-39 Not Available [facility] (Lab) [address] [facility], [place], [address], 07/13/2022 06:19:07 07/13/19 23 07/12/2022 CMP(C OMPRE HENSI VE METAB OLIC PANEL ) bilirubin, total 0.4 mg/dL 0.2-1. 2 Not Available [facility] (Lab) [address] [place], [address], 07/13/2022 06:19:07 07/13/19 23 07/12/2022 TSH, REFLE X FREE T4 TSH 0.86 uIU/m L 0.30-5 .33 Not Available [facility] (Lab) [address] [place], [address], 07/13/2022 06:19:08 07/13/19 23 07/12/2022 VITAM IN D, 25-OH (TOTA L D2/D3 ) vitamin D, 25-hydroxy, total 63.9 NG/mL 30.0-1 00.0 Sugge stive of Defic iency : <20 ng/mL Sugge stive of Insuf ficie ncy: 20-29 ng/mL Sugge stive of Suffi cienc y: 30-10 0 ng/mL Sugge stive of Toxic ity: >150 ng/mL Not Available [facility] (Lab) [address], [place], [address], 07/13/2022 06:19:09 12/10/1912/09/2022 MAMMO , scree harley, bilat eral No observ ation record ed. [email or web address] [facility] [address], [place], [address], 12/10/2022 11:21:49 12/10/1912/09/2022 MAMMO , scree harley, bilat eral No observ ation record ed. [email or web address] [facility] [address], [place], [address], 12/10/2022 12:11:27 01/01/2012/31/2022 US, naa t, unila teral No observ ation record ed. [email or web address] [facility] [address], [place], [address], 01/03/2023 17:41:48 01/01/2012/31/2022 USnaa, unila teral No observ ation record ed. [email or web address] [facility] [address], [place], [address], 01/04/2023 09:16:36 02/08/2012/31/2022 US, naa moore, unila teral No observ ation record ed. [email or web address] [facility] [address], [place], [address], 02/15/2023 14:07:43 02/10/2012/31/2022 MAMMO , diagn ostic , digit al, unila teral No observ ation record ed. [email or web address] [facility] [address], [place], [address], 02/24/2023 17:30:52 Result Notes None recorded. Procedures Surgical History Date Name Laterality Status Provider Name and Address Organization Details Recorded Time 02/21/19 22 Date of Last Mammogram completed [facility] 06/09/2022 16:06:06 02/21/19 09 Partial Hysterectomy completed [facility] 07/27/2022 12:46:42 02/21/19 04 Date of Last Pap Smear completed [facility] 06/09/2022 16:05:02 09/12/19 01 Caesarean Section completed [facility] 07/27/2022 12:46:36 tonsilectomy/shree noids completed [facility] 06/09/2022 16:02:53 Colonoscopy completed [facility] 06/09/2022 16:02:53 Nsl/sins ndsc surg max sins completed [facility] 07/27/2022 12:46:56 Imaging Results Imaging Date Name Status [facility] Details LastModified Time 12/09/2022 MAMMO, screening, bilateral completed [email or web address] [facility] [address], [place], [address], 12/10/2022 11:21:49 12/09/2022 MAMMO, screening, bilateral completed [email or web address] [facility] [address], [place], [address], 12/10/2022 12:11:27 12/31/2022 US, breast, unilateral completed [email or web address] [facility] [address], [place], [address], 01/03/2023 17:41:48 12/31/2022 US, breast, unilateral completed [email or web address] [facility] [address], [place], [address], 01/04/2023 09:16:36 12/31/2022 US, breast, unilateral completed [address], [place], [address], 02/15/2023 14:07:43 12/31/2022 MAMMO, diagnostic, digital, unilateral completed [email or web address] [address], [place], [address], 02/24/2023 17:30:52 Procedure Notes None recorded. Medical Equipment None Reported. Allergies No known drug allergies Medications Name Sig Start Date Stop Date Status Note LastModified by Organization Details LastModified Time amoxicillin 500 mg capsule TAKE 1 CAPSULE BY MOUTH THREE TIMES A DAY 06/09 completed Not Available Not Available Not Available prednisone 10 mg tablet TAKE 1 TABLET BY MOUTH EVERY DAY IN THE MORNING FOR 3 DAYS PRIOR TO SURGERY 06/09 completed Not Available Not Available Not Available doxycycline hyclate 100 mg capsule TAKE 1 CAPSULE BY MOUTH EVERY DAY 06/09 completed Not Available Not Available Not Available metoprolol succinate ER 50 mg tablet,exte nded release 24 hr active Not Available Not Available Not Available prednisone 5 mg tablet TAKE 1 TABLET BY MOUTH EVERY DAY IN THE MORNING 06/09 completed Not Available Not Available Not Available phentermine 37.5 mg tablet TAKE 1 TABLET BY MOUTH EVERY DAY *MUST ADMINISTE R 30 MINUTES BEFORE OR 1-2 HOURS AFTER BREAKFAST 06/09 completed Not Available Not Available Not Available estradiol 1 mg tablet Take 1 tablet every day by oral route with meals for 90 days. 2022 active Not Available Not Available Not Avai lable benzonatate 100 mg capsule TAKE 1 CAPSULE BY MOUTH 3 TIMES A DAY NEEDED FOR COUGH 06/09 completed Not Available Not Available Not Available lisinopril 10 mg tablet 06/09 completed Not Available Not Available Not Available [facility] Lisinopril 10 mg tablet active Not Available Not Available Not Available azelastine 137 mcg (0.1 %) nasal spray INSTILL 1 SPRAY INTRANASA LLY EVERY 12 HOURS ADMINISTE R INTO EACH NOSTRIL 07/09 completed Not Available Not Available Not Available estradiol 0.01% (0.1 mg/gram) vaginal cream Insert 1gm per vagina at bedtime 2x/wk. active Not Available Not Available No t Available albuterol sulfate HFA 90 mcg/actuati on aerosol inhaler INHALE 2 PUFFS BY MOUTH EVERY 4 HOURS NEEDED FOR SHORTNESS OF BREATH OR WHEEZING. 07/09 completed Not Available Not Available Not Available amoxicillin 875 mg-potassiu m clavulanate 125 mg tablet TAKE 1 TABLET BY MOUTH EVERY 12 HOURS 06/09 completed Not Available Not Available Not Available oxycodone 5 mg tablet TAKE 1 TABLET BY MOUTH EVERY 12 HOURS NEEDED FOR PAIN 06/09 completed Not Available Not Available Not Available bupropion HCl XL 150 mg 24 hr tablet, extended release active Not Available Not Available Not Available duloxetine 60 mg capsule,del ayed release active Not Available Not Available Not Available B Complex Super active Not Available Not Available Not Available metoprolol succinate active Not Available Not Available No t Available Hair, Skin, Nails with Biotin active Not Available Not Available Not Available Saxenda 3 mg/0.5 mL (18 mg/3 mL) subcutaneou s pen injector PLEASE SEE ATTACHED FOR DETAILED DIRECTION S active Not Available Not Available No t Available 24 Hour Allergy Relief active Not Available Not Available Not Available bupropion HCl 150 mg tablet,12 hr sustained-r elease(smok ing deterrent) 07/09 completed Not Available Not Available Not Available BD Ultra-Fine Micro Pen Needle 32 gauge x 1/4 USE DIRECTED. active Not Available Not Available No t Available Vitals Date Recorded Body height Body mass index (BMI) Body weight Provider Name and Address Organization Details Last Updated DateTime 07/07/2022 147.32 cm 39.7 kg/m2 15946.55 g Laurie Robles [place] - [facility] 07/07/2022 14:12:01 Date Recorded Systolic blood pressure Diastolic blood pressure Provider Name and Address Organization Details Last Updated DateTime 07/07/2022 122 mm[Hg] 70 mm[Hg] Ilda Shine [facility] [address], [place], [address], [facility] 07/07/2022 14:19:54 Date Recorded Body height Body mass index (BMI) Body weight Systolic blood pressure Diastolic blood pressure Provider Name and Address Organization Details Last Updated DateTime 07/09/2022 147.32 cm 39.6 kg/m2 43425.75 g 132 mm[Hg] 80 mm[Hg] [facility] 3 11:35:28 Date Recorded Body height Body mass index (BMI) Body weight Systolic blood pressure Diastolic blood pressure Provider Name and Address Organization Details Last Updated DateTime 07/22/2022 147.32 cm 39.5 kg/m2 73978.96 g 136 mm[Hg] 70 mm[Hg] Analia Guillen [facility] 3 15:25:34 Date Recorded Body height Body mass index (BMI) Body weight Systolic blood pressure Diastolic blood pressure Provider Name and Address Organization Details Last Updated DateTime 08/20/2022 147.32 cm 39.5 kg/m2 23168.96 g 144 mm[Hg] 73 mm[Hg] [facility] 3 10:50:58 Date Recorded Body height Body mass index (BMI) Body weight Systolic blood pressure Diastolic blood pressure Provider Name and Address Organization Details Last Updated DateTime 09/01/2022 147.32 cm 37 kg/m2 09491.85 g 135 mm[Hg] 79 mm[Hg] Laurie Robles [facility] 3 14:08:41 Date Recorded Systolic blood pressure Diastolic blood pressure Provider Name and Address Organization Details Last Updated DateTime 09/01/2022 126 mm[Hg] 78 mm[Hg] Ilda Shine [facility] [address], [place], [address], [facility] 09/01/2022 14:21:43 Social History Question Answer Notes LastModified by Organizat ion Details LastModified Time Tobacco Smoking Status Never Smoker Laurie Robles ramos, [facility] 09/01/2022 14:09:33 What Is Your Level Of Alcohol Consumption? Occasional Information not available 06/09/2022 Are You Blind Or Do You Have Difficulty Seeing? No [email or web address] Information n ot available 06/09/2022 What Is Your Level Of Caffeine Consumption? Occasional [email or web address] Information not available 06/09/2022 In The 14 Days Before Symptom Onset, Have You Had Close Contact With A Laboratory-confirm ed COVID-19 While That Case Was Ill? No [email or web address] Information n ot available 06/09/2022 In The 14 Days Before Symptom Onset, Have You Had Close Contact With A Person Who Is Under Investigation For COVID-19 While That Person Was Ill? No [email or web address] Information not available 06/09/2022 Have You Been To An Area Known To Be High Risk For COVID-19? No Information not available 06/09/2022 Are You Deaf Or Do You Have Serious Difficulty Hearing? No [email or web address] Information not available 06/09/2022 What Type Of Diet Are You Following? CARBOHYDRATE [email or web address] Information n ot available 06/09/2022 What Is The Highest Grade Or Level Of School You Have Completed Or The Highest Degree You Have Received? 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 No [email or web address] Information not available 06/09/2022 Do You Use Protection During Sex? No [email or web address] Information not available 06/09/2022 Do You Use Your Seat Belt Or Car Seat Routinely? Yes [email or web address] Information not available 06/09/2022 Do You Have Smoke And Carbon Monoxide Detectors In Your Home? Yes Information not available 06/09/2022 How Much Tobacco Do You Smoke? No [email or web address] Information not available 06/09/2022 Do You Feel Stressed (tense, Restless, Nervous, Or Anxious, Or Unable To Sleep At Night)? [id number] [email or web address] Information not available 06/09/2022 Do You Use Any Illicit Or Recreational Drugs? Yes [email or web address] Information not available 06/09/2022 Do You Use Sunscreen Routinely? No [email or web address] Information not available 06/09/2022 Have You Used IV Drugs? No [email or web address] Information not available 06/09/2022 Sex: Unknown Functional Status Question Answer Note LastModified by Organizat ion Details LastModified Time Are you able to walk? YESWOREST [email or web address] Information not available 06/09/2022 What is your exercise level? Occasional [email or web address] Information not available 06/09/2022 Mental Status None recorded. Family History Relationship Description Onset Age of this Age Resolved Age Notes LastModified by Organization Details LastModified Time Paternal Grandmother Malignant tumor of breast [email or web address] Not available 06/09 16:02:08 Mother Malignant tumor of lung [email or web address] Not available 06/09 16:02:08 Paternal Aunt Malignant tumor of breast [email or web address] Not available 06/09 16:02:08 Son Anxiety disorder [email or web address] Not available 06/09 16:02:08 Maternal Grandfather Heart disease [email or web address] Not available 06/09 16:02:08 Father Anxiety disorder [email or web address] Not available 06/09 16:02:08 Medical History Condition Response Allergies (Food, seasonal, environmental ) Y Other N Breast Cancer N Drug/Latex Allergies/Reactions N Blood Transfusion N Dermatologic Disorders N Lung Disease N Defects or Inherited Disease N Breast Problem N Gestational Diabetes N Hematologic disorders N Anesthesia Complications N History of STI N Deep Vein Thrombosis N Polycystic ovary syndrome N Anxiety Disorder Y Autoimmune disease N Arthritis Y Infertility N Polyps Y Acid Reflux (GERD) N History of abnormal pap N Cancer N Stroke N Varicosities N Neurologic/Epilepsy Y Endometriosis N High Cholesterol N Headaches Y Fibromyalgia Y Kidney Disease N Heart Problems Y Kidney or Bladder Problems N Thyroid Problems N GI Problems N Eating Disorder N Anemia N Art (IVF or FET) N Psychiatric Illness N Ovarian Cancer N Diabetes N Pulmonary (TB, Asthma) Y Hepatitis/Liver Disease N No Past Medical History N Eczema N Urinary Tract Infection N Abuse/Domestic Violence N Asthma N Trauma/Violence N Depression/ depression N Heart Disease N Pre-Eclampsia N Hypertension Y Osteoporosis N Thrombophilias N Gynecological History Statement/Question Response Date of Last Mammogram 02/21/2021 Date of LMP 02/22/2008 On BCP's at Conception? N N Was last menstrual period normal N STIs/STDs N HPV Vaccine N Current Control Method Hysterectom y Age at First Child 31 If Post Menopausal, Age at Menopause 54 Date of Last Colonoscopy Sexually Active? Y Date of Last Pap Smear 02/21/2003 Sexual Problems? Yes LMP Unknown N Obstetrics History GPAL:G 2 P 2 0 0 2 Type Value Full Term 2 Living 2 Total 2 Past Encounters Encounter ID Performer Location Encounter Start Date Encounter Closed Date Diagnosis/Indication Diagnosis SNOMED-CT Code Diagnosis ICD10 Code Diagnosis Note [id number] Ilda Shine [facility] [address] [address] 06/09/2022 15:33:31 06/10/2022 17:09:43 Menopausal symptom 41562087 N95.1 N95.2 Opts trial estradiol 1mgHx of hysterecto my partial (non-cance maryam indication s).Hx reviewedHT N well managed RTO x 1mos med check We discussed Menopausal Hormone therapy (MHT) for women with intact uterus with the goals of reliving vaso-motor sx's using estrogen/p rogestin therapy (EPT) using lowest doses for shortest duration in women 40-59yo. Contraindi cations include: Hx of DVT or thrombolic events, High cholestero l, Hx of breast cancer, known CHD, active liver disease, unexplaine d vag bleeding, high risk endometria l cancer, TIA. Side effects can include but are not limited to: Irregular vag bleeding,, breast tenderness , nausea, weight changes, libido changes, nausea. Adverse Rxn: Elevated BP migraine w/ visual changes, breast cancer dx, SC/stroke, DVT/PE, Endometria l cancer. Please contact office with any new or worsening side effects or adverse reactions. Or if a medical emergency please go to nearest ED/[facility] for further evaluation . [place] Vaginal dryness/dy spareunia: Counseled on the following: Vaginal Dryness: Bothersome symptoms of the vagina and vulva (outer lips of the vagina) increase during and after the menopause transition or may start several years after menopause. The decrease in estrogen with menopause is a major contributo r to vaginal dryness, itching, burning, discomfort , and pain during intercours e or other sexual activity. Vaginal atrophy is the medical term that describes these changes. The genitourin abundio syndrome of menopause includes bothersome vaginal atrophy often combined with urinary symptoms. Vaginal atrophy may significan tly affect your quality of life, sexual satisfacti on, and relationsh ip with your partner. Unlike hot flashes, which generally improve with time, vaginal symptoms typically worsen with time because of aging and a prolonged lack of estrogen. Vaginal estrogen therapy An effective and safe treatment, low-dose local estrogen is applied directly to the vagina to restore vaginal health and relieve vaginal dryness and discomfort with sexual activity. Improvemen ts usually occur within a few weeks, although complete relief may take several months. This even may be an option for women with a history of breast or uterine cancer but only after careful considerat ion of risks and benefits with a healthcare provider and oncologist . Government -approved low-dose vaginal estrogen products are available by prescripti on as vaginal creams (used two or three nights/wee k), a vaginal estradiol tablet (used twice/week ), and an estradiol vaginal ring (changed every 3 months). All are highly effective. You may wish to try several different forms and choose the one you prefer. Standard doses of estrogen therapy provided to treat hot flashes also treat vaginal dryness, although some women still benefit from additional low-dose vaginal estrogen treatment. If only vaginal symptoms are present, low doses of estrogen applied to the vagina are recommende d. Resources: https://ww w.menopaus e.org/docs /default-s ource/for- women/mn-v aginal-dry ness.pdf Obese abdomen [id number] R19.8 [facility] insuranceW ants to consider weight loss clinic [facility] provided and will consider scheduling . [id number] SUBHA Chang[facility] [address],[place] [address] 07/07/2022 13:58:58 07/07/2022 14:30:55 Menopausal symptom 46504967 N95.1 N95.2 Medication check of estradiol 1mg.She is tolerating well.Feels a bit more energy/lawrence e improvemen t in daytime hotflashes but still feels more room for improvemen t at night.She has experience d neg SE's in regards to cardiovasc ular issues.Her HTN is well managed.We agreed to continue for another couple of months at this time.F/U 2mos med check for estradiol 1mg plus vaginal estrogen check.Cont act us if any issues/con cerns. Time spent in visit is a total of 15 mins with at least 50% of visit consisting of counseling and review of plan of care. [id number] SUBHA Boyle [facility] [address],[place] [address] 07/09/2022 11:14:00 07/09/2022 16:09:37 Obesity 466136579 E66.9 Detailed hx obtained today (see HPI)we discussed her diet, her exercise, and lifestyle modificati ons she has been makingshe needs to increase movement, exercise recommenda tions discussedw e reviewed obesity medication options moving forwarddis cussed phentermin e, contrave, injectable sshe is already on wellbutrin , and just started phentermin e with her PCP. Discussed with patient that phentermin e is typically avoided in patients with tachycardi a, and wegovy/sax enda would be preferred alternativ es.reviewe d R/B/A/cost /contraind ications of each methodshe denies any personal or fam hx of thyroid cancer she is going to check her insurance for obesity medication coveragesh e will f/u in 4 weeks-have fasting labs collected- deitician appointmen t scheduled- exercise discussed, needs to incorporat e more intentiona l exercise - recommenda tions discussed- RTC in 4 weeks Time spent in visit is a total of 50 mins with at least 50% of visit consisting of counseling and review of plan of care. [id number] SUBHA Boyle [facility] [address],[place] [address] 07/22/2022 15:15:01 07/22/2022 16:06:40 Obesity 356007778 E66.9 Reviewed all medication options, reviewed R/B/SE/A/C ost of all optionsdenise has already tried phentermin e and contrave in the past with little resultswou ld like to start saxenda, she denies any contraindi cationsrx sentDenise is going to continue exercising , joined a gym! She is following the dieticians recommenda tions, making hanges.Pre cautions discussed, to notify the office with any negative SE or questionsR TC in 4 weeks for f/u Time spent in visit is a total of 40 mins with at least 50% of visit consisting of counseling and review of plan of care. Prediabetes [id number] R7 3.03 [id number] Josefa Douglas [facility] [address],[place] [address] 08/20/2022 10:47:50 08/20/2022 11:19:31 Obesity 509649606 E66.9 Doing well since starting saxendashkerline is down 10lbs - feeling wellstarte d exercising , making healthy diet choicesshkerline would like to continue on the medication she will f/u in 4 weeks BP precaution s discussed Time spent in visit is a total of 20 mins with at least 50% of visit consisting of counseling and review of plan of care. [id number] [facility] [address],[place] [address] 09/01/2022 13:57:55 09/01/2022 14:49:40 Menopausal symptom 58062345 N95.1 N95.2 Medication check.Estr adiol vag/oral therapy is going extremely well.Decli sharan side effects.Fe els defnite improvemen t vaginal therapy; but has not been using consistent ly twice a week.Will be more compliant & also add in EVOO or other veg based oil daily.Cont inues to do really well on estradiol PO.Wishes to continue. Time spent in visit is a total of 15 mins with at least 50% of visit consisting of counseling and review of plan of care. Health Concerns Section Related Observation LastModified by Organization Detai ls LastModified Time None Recorded Concern Status LastModified by Organization Details LastModified Time None Recorded Advance Directives Directive None Recorded Payers Encounter Date Sequence Insurance Name Policy Number Policy Sotomayor Covered Member ID Sotomayor Member ID Guarantor Name 07/07/2022 2 [place] [id number] Shin Kenney [id number] Sushila L Kenney 07/07/2022 1 [facility] Sushila Earlonald [id number] Sushila L Kenney 07/09/2022 2 [place] [id number] Shin Kenney [id number] Sushila L Kenney 07/09/2022 1 [facility] Sushila Kenney [id number] Sushila L Kenney 07/22/2022 2 [place] [id number] Shin Kenney [id number] Sushila L Kenney 07/22/2022 1 [facility] Sushila Kenney [id number] Sushila L Kenney 08/20/2022 2 [place] [id number] Shin Kenney [id number] Sushila L Kenney 08/20/2022 1 [facility] Sushila Earlonald [id number] Sushila L Kenney 09/01/2022 2 [place] [id number] Shin Kenney [id number] Sushila L Kenney 09/01/2022 1 [facility] Sushila Earlonald [id number] Sushila Cass Kenney Notes Date Note Type Note Provider Name and Address Organization Details Recorded Time 3 text/html Here today for medication check of Estradiol 1mg. Ilda Shine, [facility]- [address], [place], [address], [place] - [facility] 07/07/2022 14:24:11 3 text/html 56yopresents for initial weight management consultationcurrent weight is 190lbs - BMI 40weight gain has been associated with lack of movementhas tried weight watchers, keto, and medications previouslyshe is currently on wellbutrin and phentermine. Started phentermine 1 month ago through PCP, has not noticed a difference with hunger or cravings since starting.Eats breakfast sometimes, water and coffee onlyoften eats late at night before bed. Smokes marijuana before bedtime and this makes her hungry.No current exerciseSleeps 8 hours a night, snores, has sleep apnea. Has a cpap but does not wear it past medical hx : HTN, tachycardia, arthritis, fibromyalgia, sleep apnea, anxietymedications: phentermine, bupropion, duloxetine, estradiol, lisinopril, metoprololsurgical hx: hysterectomy, sinus procedure past tobacco smoker, quit 27 years agooccasional alcoholmarijuana once per day fam hx of obesity, HTN, anxiety, lung cancer SUBHA Boyle [address], [place], [address], [facility] 07/09/2022 12:19:52 3 text/html 56yopresents for obesity management mallory/yamila has met with the motor grader rough grade, followed the dieticians recommendations when she was out shopping for groceries. She has made diet changesJoined a gym, started exercising againshe has a plan and is comitted to making changeswants to discuss medication options SUBHA Boyle [address], [place], [address], [facility] 07/22/2022 16:05:29 3 text/html 56yopresents for weight management mallory/yamila started saxenda at [facility] has lost 10lbs since starting the medicationstarted exercising more, eating healthierhas noticed her clothes are already fitting betterold SE is mild nausea at times SUBHA Boyle [address], [place], [address], [facility] 08/20/2022 11:06:28 3 text/html Here today for updated med check on estradiol oral/vaginal. SUBHA Chang- [address], [place], [address], [facility] 09/01/2022 14:25:34 OBGyn Episode Ob Episode Information Episode Created Date Number of Fetuses Patient Bloodtype Patient rh Status Prepregnancy Weight lbs Domestic Partner Domestic Partner Phone Father Name Dietetic Assistant Status 06/10/19 23 1 CLOSED Fetus Data First Name Last Name Admitted to NICU Weight (g) Sex Living Outcome Pediatric Complications Fetus ID Race Codes Race Delivery Type 2976.47 0704 M Full Term [id number] Vaginal Delivery Jace Calculation Initial Jace Date Initial Exam Date Initial Exam Provider Initial Ultrasound Date Last Menstrual Period Date Ultra Sound Weeks Gestation 0 Eighteen To Twenty Week Jace Update Ultra Sound Date Fundal Height At Umbil Quickening Date Ultra Sound Latest Weeks Gestation Final Jace Confirmed By Final Jace Confirmed Date Final Jace Date Ultra Sound Latest Days Gestation 0 0 Menstrual History Last Menstrual Date Menses Monthly On Bcp Conception Prior Menses Frequency Hcg Plus Date Menarche Onset Age Delivery Information Delivery Date Delivery Type Labor Anesthesia Weeks Gestation Incision Type Labor Labor Length Hrs Delivered By Post Complications Tubal Sterilization Discharge Date Comments 7 38 false Discharge Information Feeding Method Contraceptive Method Maternal HG B and HCT Levels Ob Episode Information Episode Created Date Number of Fetuses Patient Bloodtype Patient rh Status Prepregnancy Weight lbs Domestic Partner Domestic Partner Phone Father Name Dietetic Assistant Status 06/10/19 23 1 CLOSED Fetus Data First Name Last Name Admitted to NICU Weight (g) Sex Living Outcome Pediatric Complications Fetus ID Race Codes Race Delivery Type [phone] F Full Term [id number] Primary Jace Calculation Initial Jace Date Initial Exam Date Initial Exam Provider Initial Ultrasound Date Last Menstrual Period Date Ultra Sound Weeks Gestation 0 Eighteen To Twenty Week Jace Update Ultra Sound Date Fundal Height At Umbil Quickening Date Ultra Sound Latest Weeks Gestation Final Jace Confirmed By Final Jace Confirmed Date Final Jace Date Ultra Sound Latest Days Gestation 0 0 Menstrual History Last Menstrual Date Menses Monthly On Bcp Conception Prior Menses Frequency Hcg Plus Date Menarche Onset Age Delivery Information Delivery Date Delivery Type Labor Anesthesia Weeks Gestation Incision Type Labor Labor Length Hrs Delivered By Post Complications Tubal Sterilization Discharge Date Comments 1 26 true Discharge Information Feeding Method Contraceptive Method Maternal HG B and HCT Levels
--- OUTSIDE RECORDS SUMMARY | 2024-05-28 14:15 | XMS_ITS | Clinical Summary ---
Author Organization [facility] Address [facility] [place] [address] Care Team Providers Care Preservative Filler Machine Operator Name Role Phone Raya Hernandez Primary Care Provider [phone] Medications DULoxetine 60 MG capsule 06/05/2019 Active famotidine 20 MG tablet Take 20 mg by mouth 2 (two) times daily. 12/17/2018 Active lisinopril 10 MG tablet 03/18/2019 Active metoprolol succinate ER 50 MG 24 hr tablet 05/03/2019 Act jossy omeprazole 40 MG capsule 12/19/2018 Active sucralfate 1 G tablet 12/19/2018 Active Social History Tobacco Use Types Packs/Day Years Used Date Smoking Tobacco: Never Assessed Comments Unknown Sex and Gender Information Value Date Recorded Sex Assigned at Not on file Legal Sex Female 2:38 PM CDT Gender Identity Not on file Sexual Orientation Not on file Plan of Treatment Health Maintenance Due Date Last Done Comments Cervical Cancer Screening Pa p Smear (Age 30 to 64) Every 3 Years 1964 Colorectal Cancer Screening Colonoscopy (10 Years) 1964 Annual Physical 12/22/1967 Hepatitis C 1982 DTaP, Tdap and Td Vaccines ( 1 - Tdap) 12/22/1983 Cervical Cancer Screening Pa p with HPV Testing (Age 30 to 64) Every 5 Years 1994 Cervical Cancer Screening with HPV 1994 Mammogram Screening 2004 Zoster Vaccines (1 of 2) 2014 COVID-19 Vaccine (2023-2 5 season) 2023 Meningococcal B Vaccine Aged Out No l onger eligible based on patient's age to complete this topic Meningococcal Vaccine Aged Out No aleja oskar eligible based on patient's age to complete this topic Pneumococcal Vaccine: Pediat rics (0 to 5 Years) and At-Risk Patients (6 to 64 Years) Aged Out No longer eligible b ased on patient's age to complete this topic RSV Immunizations Under 20 Months Aged Out No longer eligible based on patient's age to complete this topic Insurance [facility] Care Teams Preservative Filler Machine Operator Relationship Specialty Start Date End Date Raya Hernandez FNP [address] [place] [id number] PCP - General Nurse Practitioner Family 05/15/19
[2024-05-28 20:08] LABS: Basophils Absolute Auto 0.1 K/mm3 (0.0-0.1); Basophils Percent Auto 0.9 % (0.2-1.2); Eosinophils Absolute Auto 0.3 K/mm3 (0-0.3); Hematocrit 43.3 % (37.0-47.0); Hemoglobin 13.2 g/dL (12.0-15.0); Immature Granulocyte Absolute 0.04 K/mm3 (0.00-0.031); Immature Granulocyte Percent A 0.4 % (0-0.5); Lymphocytes Absolute Auto 3.03 K/mm3 (0.9-3.2); Lymphocytes Percent Auto 32.6 % (18.3-44.2); Mean Corpuscular HGB Conc 30.5 g/dl (32-36); Mean Corpuscular Hemoglobin 27.3 pg (26-34); Mean Corpuscular Volume 89.5 fl (80-100); Mean Platelet Volume 11.6 fl (7.4-10.4); Monocytes Absolute Auto 0.7 K/mm3 (0.1-0.6); Neutrophils Absolute Auto 5.2 K/mm3 (1.3-6.7); Neutrophils Percent Auto 56.1 % (45.5-73.1); Platelet Count Result 291 k/mm3 (150-375); Red Blood Count 4.84 M/mm3 (4.2-5.4); Red Cell Distribution Width 15.2 % (11.5-14.5); White Blood Count 9.3 K/mm3 (4.5-10.0)
[2024-05-28 20:19] LABS: Hemoglobin A1C 5.8 % (<5.7)
[2024-05-28 22:04] LABS: Alanine Aminotransferase 26 U/L (6-35); Albumin Level 4.2 g/dL (3.5-5.1); Alkaline Phosphatase 81 U/L (38-126); Anion Gap 6 mmol/L (4-12); Aspartate Amino Transferase 35 U/L (14-36); Bilirubin,Total 0.4 mg/dL (0.2-1.3); Blood Urea Nitrogen 15 mg/dL (7-17); Carbon Dioxide 30 mmol/L (22-30); Chloride 102 mmol/L (98-107); Cholesterol 165 mg/dL (0-200); Estimated Glomerular Filt Rate > 60; Glucose 85 mg/dL (65-110); HDL Direct 32 mg/dL; Potassium 4.4 mmol/L (3.4-5.0); Sodium 138 mmol/L (137-145); Triglycerides 288 mg/dL (<150)
[2024-05-28 22:15] LABS: LDL Cholesterol Direct 76 mg/dL
== END 2024-05-28 12:38 | disposition home or self-care (01) ==
LOC: ANHGOSHLAB 12:38
PROVIDERS: PCP Internal Medicine; Visit Provider Clinical Nurse Specialist
DX: D72.829 Elevated white blood cell count, unspecified (principal); E78.1 Pure hyperglyceridemia; R73.01 Impaired fasting glucose; I10 Essential (primary) hypertension
CPT/HCPCS: 36415; 80053; 80061; 83036; 85025

== ENCOUNTER 2024-06-19 13:22 | Emergency (ER) | payer OTHER, BC, SELFPAY ==
[2024-06-19 13:38] VITALS: BP 121/77; PULSE 116; RESP 16; TEMP 36; O2SAT 99
--- NOTE | 2024-06-19 13:41 | ED_ITS ---
HPI - URI/Sore Throat General Chief Complaint: Upper Respiratory Infection Stated Complaint: SINUS/COUGH Time Seen by Provider: 06/19/24 14:14 Source: patient and RN notes reviewed Mode of arrival: ambulatory Limitations: no limitations History of Present Illness HPI Narrative: 58-year-old female presents with concern of for 5 day history of chest congestion, productive cough. Reports sweats. Reports she sinus drainage as well. She has been taking [id number] cold meds without relief. MD elicited complaint: cough Related Data Home Medications ?Medication ?Instructions ?Recorded ?Confirmed ?Last Taken ?Type metoprolol succinate 50 mg 50 mg PO DAILY 03/05/19 06/04/24 12/18/21 History tablet,extended release 24 hr multivitamin 1 tablet PO DAILY 02/13/24 06/04/24 Unknown History Allergies Allergy/AdvReac Type Severity Reaction Status Date / Time No Known Allergies Allergy Unknown Verified 06/19/24 14:06 Review of Systems Review of Systems: CONSTITUTIONAL: Reports malaise, sweats. Denies chills or fever. EYES: Denies visual changes, redness, or discharge. ENT: Reports rhinorrhea, congestion CARDIOVASCULAR: Denies chest pain, palpitations, or edema. RESPIRATORY: Reports productive cough and chest congestion. Denies dyspnea. GASTROINTESTINAL: Denies abdominal pain, nausea, vomiting, diarrhea SKIN: Denies rash or itching. MUSCULOSKELETAL: Denies myalgia. NEUROLOGIC: Denies headache. All systems reviewed & are unremarkable except as noted in HPI and below PMFSH Past Medical History Medical History (Updated 06/19/24 @ 14:22 by Pretty Sheets NP) Subcutaneous mass of left thumb Facial pressure Polyarthritis Pain of left thumb Nasal congestion Nasal polyps Nasal obstruction PND (post-nasal drip) Blanka bullosa Nasal crusting Obesity, Class III, BMI 40-49.9 (morbid obesity) Fibromyalgia Tachycardia Hypertension Arthritis Sleep apnea Anxiety Allergies Surgical History Surgical History 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 H/O: hysterectomy 2003 Family History Family History Mother Patient's mother is , Onset Age: 56 Lung cancer Father Grandparent Family history of dementia, Onset Age: 76 Family history of coronary artery disease, Onset Age: 68 Breast cancer Acute myocardial infarction Other Family history of lung cancer Family history of malignant neoplasm of breast in first degree relative Social History Social History (Reviewed 06/04/24 @ 13:59 by Eliana Solis [facility]) Social History: Caffeine-coffee Smoking status: Former smoker Smoking end date: 02/22/96 Additional smoking assessment comments: 1/2 pack per week x 10 years Alcohol intake: current Alcohol use details: SOCIALLY Substance use: current Substance use type: marijuana Other substance usage details: smoking Lack of Transportation: No Lack of Food: Never True Current Housing: I Have Housing Concerned About Future Housing: No Difficulty Paying Gas/Electric Bills: No Difficulty Paying for Meds: No Currently Unemployed: No Education: Associate Degree Difficulty w/ Childcare or Family Care: No Living arrangements: with family Spiritual care concerns: No Comments At time of signature, agree with nursing past medical, surgical, social and family history. There is no relevant family history pertinent to the presenting complaint Exam Narrative: GENERAL: Well-appearing, well-nourished, and in no acute distress. HEAD: Normocephalic EYES: PERRLA, conjunctivae clear ENT: Nares clear. Mucous membranes moist. TM pearly pierce with dull light reflex bilaterally; no tragal tenderness. Oropharynx not erythematous without lesions. Tonsils not enlarged and without exudate, no drooling, no hoarseness, no trismus, uvula midline. NECK: Supple. No lymphadenopathy CHEST: Expiratory wheeze throughout, otherwise Clear to auscultation, breath sounds equal. No rhonchi, rales, or stridor. No respiratory distress, speaks in full sentences. HEART: Regular rate and rhythm. No murmur heard. SKIN: Warm, dry, no rash. NEURO: Alert and oriented x3. PSYCH: Normal mood and affect Course Course Emergency Course: Patient is aware of diagnosis, understands and agrees to treatment plan. Anticipatory guidance given. Patient agrees to follow-up as directed and is aware of reasons to seek care at the emergency department. Portions of this record may have been created with voice recognition software Level of Care: Express Care Visit Vital Signs Vital signs: Vital Signs Temperature 96.8 F L 06/19/24 13:38 Pulse Rate 116 H 06/19/24 13:38 Respiratory Rate 16 06/19/24 13:38 Blood Pressure 121/77 06/19/24 13:38 Pulse Oximetry 99 06/19/24 13:38 Temperature 96.8 F L 06/19/24 13:38 Pulse Rate 116 H 06/19/24 13:38 Respiratory Rate 16 06/19/24 13:38 Blood Pressure 121/77 06/19/24 13:38 Pulse Oximetry 99 06/19/24 13:38 Reviewed. MDM - URI/Sore Throat MDM Narrative Medical decision making narrative: Differential diagnosis considered: [place] virus, strep pharyngitis, allergic rhinitis, upper respiratory tract infection, sinusitis, rhinosinusitis, nasopharyngitis. viral pharyngitis, otitis media, otitis externa, pneumonia, bronchitis, viral cough syndrome, viral syndrome, and influenza. Exam findings show no acute concerns or changes; patient is non-toxic appearing and is in no distress. Patient is appropriate for outpatient treatment and follow-up. Lab Data Attestation: I reviewed the patient's lab results. Critical Care Time Critical Care Time Critical Care Time: No Discharge Plan Discharge Clinical Impression: Bronchitis Patient Disposition: Home Condition: Stable Instructions: Antibiotic Form, Acute Bronchitis (ED) Additional Instructions: Take medications as prescribed Recommend antihistamine such as Benadryl at night time and Zyrtec or Geraldine during the day Use inhaler as needed for cough, wheezing, shortness of breath or chest tightness. Also, recommend symptomatic treatment includes: rest, fluids, and increase humidity of the air at home. Recommend Acetaminophen as directed on the bottle to reduce fever, pain, headache. Avoid smoking/second-hand smoke. Please schedule a follow-up visit with your personal physician for further evaluation and treatment within 3-5days. If your symptoms persist, change or worsen significantly before you can contact your personal physician then please, without delay, go to the emergency department for further evaluation. Patient Language: Pashto Prescriptions: New azithromycin [Zithromax Z-Andrea] 250 mg tablet See Rx Instructions .ROUTE .COMPLEX Qty: 6 0RF Rx Instructions: take 500 mg today (day 1), then 250 mg for 4 days (days 2-5) methylprednisolone [Medrol (Andrea)] 4 mg tablets,dose pack See Rx Instructions .ROUTE .COMPLEX Qty: 21 0RF Rx Instructions: orally per package directions albuterol sulfate 90 mcg/actuation HFA aerosol inhaler 2 puff INHALATION QID PRN (Reason: shortness of breath or wheezing) Qty: 8.5 0RF No Action ibuprofen 600 mg tablet 600 mg PO TID PRN (Reason: fever or pain) Qty: 30 0RF multivitamin Tablet 1 tablet PO DAILY Zepbound 2.5 mg/0.5 mL pen injector 2.5 mg subcut WEEKLY Qty: 2 0RF Rx Instructions: for 4 weeks metoprolol succinate 50 mg tablet extended release 24 hr 50 mg PO DAILY Rx Instructions: take 1 tablet by oral route every day duloxetine 60 mg capsule,delayed release(DR/EC) See Rx Instructions .ROUTE .COMPLEX Qty: 90 3RF Dose Instruction: TAKE 1 CAPSULE DAILY Rx Instructions: TAKE 1 CAPSULE DAILY fluticasone propionate [Flonase Allergy Relief] 50 mcg/actuation spray,suspension 1 spray intranasal Q12H Qty: 48 0RF Rx Instructions: administer into each nostril lisinopril 10 mg tablet See Rx Instructions .ROUTE .COMPLEX Qty: 90 3RF Dose Instruction: TAKE 1 TABLET DAILY Rx Instructions: TAKE 1 TABLET DAILY bupropion HCl [Wellbutrin XL] 300 mg tablet extended release 24 hr 300 mg PO QAM Qty: 90 1RF Follow-up/Referrals: Cristian Herring DO [Primary Care Provider] - Time of Disposition: 14:23
[2024-06-19 14:08] LABS: EDCOVIDSCREEN Negative (Negative); EDINFLUASCREEN Negative (Negative); EDINFLUBSCREEN Negative (Negative)
== END 2024-06-19 14:40 | disposition home or self-care (01) ==
PROVIDERS: Emergency Provider Nurse Practitioner; PCP Internal Medicine
DX: J40 Bronchitis, not specified as acute or chronic (principal); Z20.822 Contact with and (suspected) exposure to COVID-19; F12.90 Cannabis use, unspecified, uncomplicated; I10 Essential (primary) hypertension; E66.9 Obesity, unspecified; Z68.41 Body mass index [BMI] 40.0-44.9, adult; M79.7 Fibromyalgia; M19.90 Unspecified osteoarthritis, unspecified site; F41.9 Anxiety disorder, unspecified; Z87.891 Personal history of nicotine dependence
CPT/HCPCS: 87426; 87804; 99213; G0463

== ENCOUNTER 2024-10-04 10:20 | Outpatient (CLI) | payer OTHER, BC, SELFPAY ==
--- OUTSIDE RECORDS SUMMARY | 2024-10-04 10:35 | XMS_ITS | Clinical Summary ---
Author Organization [facility] [employer] Address [address] [place] [address] Care Team Providers Care Drum Drier Operator Name Role Phone Unavailable Primary Care Provider Unavailabl e Source Comments [facility] [employer],non-owned Affiliates and Associated Physician Practices is amultiple site organization consisting of ambulatory clinics and hospital sitesin [place], [place], [place] and [place]. This disclosure is being madepursuant to the Care Everywhere program and may not contain all information available regarding this patient. Last updated 17.[employer] Allergies No known active allergies Immunizations Immunization Administration Dates Next Due MMR 09/21/2016 Social History Tobacco Use Types Packs/Day Years Used Date Smoking Tobacco: Never Assessed Comments Unknown Sex and Gender Information Value Date Recorded Sex Assigned at Not on file Legal Sex Female 6:21 PM CDT Gender Identity Not on file [...] SCREENING 1965 LIPID TESTING 1965 MAMMOGRAM 1964 HIV SCREENING 12/22/1979 HEPATITIS C SCREENING 12/17/1982 DTAP/TDAP/TD VACCINES (1 - Tdap) 12/22/1983 HEPATITIS B VACCINE (1 of 3 - 19+ 3-dose series) 12/22/1983 PNEUMOCOCCAL VACCINE 50+ (1 of 1 - PCV) 2014 ZOSTER VACCINE (1 of 2) 2014 COVID-19 VACCINE (2023-2 5 season) 2023 DEPRESSION SCREENING 02/22/2024 INFLUENZA VACCINE (#1) 2024 HIB VACCINE Aged Out No longer [...]
--- OUTSIDE RECORDS SUMMARY | 2024-10-04 10:35 | XMS_ITS | Encounter Summary ---
Author Organization [facility] Healthcare Address [address] [place] [address] Care Team Providers Care Pesticide Chemist Name Role Phone Unavailable Primary Care Provider Unavailabl e Reason for Visit * Diagnostic Imaging (Routine) - Closed Specialty Diagnoses / Procedures Referred By Contac t Referred To Contact Procedures Breast Imaging Screening Outside Reference Transcribed Order, Provider Referral ID Status Reason Start Date Expiration Date Visits Re quested Visits Authorized [id number] Closed 01/19/2023 02/18/2024 1 1 Encounter Details Date Type Department Care Team (Late st Contact Info) Description 10/22/2011 Hospital Encounter [facility] [address] [place] [address] Social History Tobacco Use Types Packs/Day [...] on file Legal Sex Female 7:42 PM SUPERVISOR KENNEL Gender Identity Not on file Sexual Orientation [...] CDT) Impressions [facility] - 01/19/2023 8:48 AM SUPERVISOR KENNEL These images are for Reference purposes only and have not been reviewed by [facility]. There will be no report generated by a [facility] Radiologist. Narrative [facility] - 01/19/2023 8:48 AM SUPERVISOR KENNEL EXAMINATION: Images For Reference Purposes Only us Provider Transcribed Order IMG MAMMO PROCEDURES Final Result [facility] documented in this encounter Visit Diagnoses Not on filedocumented in this encounter
--- OUTSIDE RECORDS SUMMARY | 2024-10-04 10:35 | XMS_ITS | Encounter Summary ---
Author Organization [facility] Healthcare Address [address] [place] [address] Care Team Providers Care Orange Peel Operator Name Role Phone Lv Samayoa Primary Care Provider [phone] Reason for Visit * Diagnostic Imaging (Routine) - Closed Specialty Diagnoses / Procedures Referred By Contac t Referred To Contact Procedures Breast Imaging Screening Outside Reference Transcribed Order, Provider Referral ID Status Reason Start Date Expiration Date Visits Re quested Visits Authorized [id number] Closed 01/19/2023 02/18/2024 1 1 Encounter Details Date Type Department Care Team (Late st Contact Info) Description 05/04/2019 Hospital Encounter [facility] [address] [place] [address] Social History Tobacco Use Types Packs/Day [...] on file Legal Sex Female 7:42 PM DIGITAL STRATEGIST Gender Identity Not on file Sexual Orientation [...] CDT) Impressions [facility] - 01/19/2023 8:52 AM DIGITAL STRATEGIST These images are for Reference purposes only and have not been reviewed by [facility]. There will be no report generated by a [facility] Radiologist. Narrative [facility] - 01/19/2023 8:52 AM DIGITAL STRATEGIST EXAMINATION: Images For Reference Purposes Only us Provider Transcribed Order IMG MAMMO PROCEDURES Final Result [facility] documented in this encounter Visit Diagnoses Not on filedocumented in this encounter Care Teams Orange Peel Operator Relationship Specialty Start Date End Date Lv Samayoa [address] [place] [address] PCP - General 01/07/14 03/12/20 documented as of this encounter
--- OUTSIDE RECORDS SUMMARY | 2024-10-04 10:35 | XMS_ITS | Clinical Summary ---
Author Organization [facility] Address [address] [place] [address] Care Team Providers Care Merchandiser Seasonal Name Role Phone Cristian Herring DO Primary Care Provider [phone] Ilda Shine BUSINESS MACHINES TEACHER Unavailable [phone] Allergies No known active allergies Medications buPROPion [...] on file Legal Sex Female 7:42 PM CFO CONTROLLER Gender Identity Not on file Sexual Orientation [...] 81.2 kg (179 lb) 01/31/2024 9:32 AM CFO CONTROLLER Height 147.3 cm (4' 9.99) 01/31/2024 9:32 AM CS T Body Mass Index 37.42 01/31/2024 9:32 AM CFO CONTROLLER Plan of Treatment Health Maintenance Due Date Last Done Comments Colon Cancer Screening-Colonoscopy 1965 Depression Screening 1964 Hepatitis C Screening 1964 DTaP/Tdap/Td Vaccine (1 - Tdap) 12/22/1975 Hepatitis B Screening 1982 Regular Well Visit/Exam 18-64 1982 Zoster Vaccine (1 of 2) 2014 Influenza Vaccine (#1) 2024 Breast Cancer Screening-Mammogram 01/30/2025 01/31/2024, 12/09/2022 Pneumococcal vaccine <65 Aged Out No longer eligible based on patient's age to complete this topic Procedures Procedure Name Priority Date/Time Associated Diagnosis Comments DIAGNOSTIC MAMMOGRAM BILATERAL W NABIL Schedule Routine, Read Routine (OP Routine) 01/31/2024 10:40 AM CFO CONTROLLER Mass of left breast, unspecified quadrant from Last 3 Months or Most Recently Relevant to Health Maintenance Results * Diagnostic Mammogram Bilateral W Nabil (01/31/2024 10:40 AM CFO CONTROLLER) Anatomical Region Laterality Modality Breast Bilateral Mammography 01/31/2024 11:2 4 AM CFO CONTROLLER Impressions 01/31/2024 1:14 PM CFO CONTROLLER 1. Probably benign masses in the left [...] Brenden Au MD Narrative 01/31/2024 1:14 PM CFO CONTROLLER EXAMINATION: BILATERAL DIGITAL DIAGNOSTIC MAMMOGRAM INCLUDING CAD [...] it. Electronically signed by: Brenden Au MD [facility] BUSINESS MACHINES TEACHER IMG MAMMO PROCEDURES Final Result from Last 3 Months or Most Recently Relevant to [place] [address] [employer] OPEN ACCESS [facility] CHOICE OOS BLUE ACCESS OOS BLUE ACC CHOICE OOS [employer] OPEN ACCESS Care Teams Merchandiser Seasonal Relationship Specialty Start Date End Date Cristian Herring DO PCP - General Internal Medicine 03/13/20 Ilda Shine NP [address] [place] [address] Referring Physician Nurse Practitioner 01/04/23
--- OUTSIDE RECORDS SUMMARY | 2024-10-04 10:35 | XMS_ITS | Encounter Summary ---
Author Organization [facility] Healthcare Address [address] [place] [address] Care Team Providers Care Log Cooker Name Role Phone Unavailable Primary Care Provider Unavailabl e Reason for Visit * Diagnostic Imaging (Routine) - Closed Specialty Diagnoses / Procedures Referred By Contac t Referred To Contact Procedures Breast Imaging Screening Outside Reference Transcribed Order, Provider Referral ID Status Reason Start Date Expiration Date Visits Re quested Visits Authorized [id number] Closed 01/19/2023 02/18/2024 1 1 Encounter Details Date Type Department Care Team (Late st Contact Info) Description 03/07/2009 Hospital Encounter [facility] [address] [place] [address] Social History Tobacco Use Types Packs/Day [...] on file Legal Sex Female 7:42 PM DENSITY CONTROL PUNCHER Gender Identity Not on file Sexual Orientation Not on file documented as of this encounter Functional Status documented as of this encounter Plan of Treatment Not on file documented as of this encounter Procedures Procedure Name Priority Date/Time Associated Diagnosis Comments BREAST IMAGING MG SCREENING OUTSIDE REFERENCE Routine 03/07/2009 12:00 AM DENSITY CONTROL PUNCHER documented in this encounter Results * Breast Imaging Screening Outside Reference (03/07/2009 12:00 AM DENSITY CONTROL PUNCHER) Impressions [facility] - 01/19/2023 8:46 AM DENSITY CONTROL PUNCHER These images are for Reference purposes only and have not been reviewed by [facility]. There will be no report generated by a [facility] Radiologist. Narrative [facility] - 01/19/2023 8:46 AM DENSITY CONTROL PUNCHER EXAMINATION: Images For Reference Purposes Only us Provider Transcribed Order IMG MAMMO PROCEDURES Final Result [facility] documented in this encounter Visit Diagnoses Not on filedocumented in this encounter
--- OUTSIDE RECORDS SUMMARY | 2024-10-04 10:35 | XMS_ITS | Clinical Summary ---
Author Organization [facility] Address [facility] [place] [address] Care Team Providers Care 3Rd Grade Reading Teacher Name Role Phone Raya Hernandez BIOFUELS RESEARCH SCIENTIST Primary Care Provider [phone] Medications DULoxetine 60 MG capsule 06/05/2019 Active [...] Screening with HPV 1994 Mammogram Screening 2004 Pneumococcal Vaccine: 50+ Ye ars (1 of 1 - PCV) 2014 Zoster Vaccines (1 of 2) 2014 COVID-19 [...] patient's age to complete this topic Insurance [facility] [[email or web address]] Care Teams 3Rd Grade Reading Teacher Relationship Specialty Start Date End Date Raya Hernandez FNP [address] [place] [address] PCP - General Nurse Practitioner Family 05/15/19
--- OUTSIDE RECORDS SUMMARY | 2024-10-04 10:35 | XMS_ITS | Encounter Summary ---
Author Organization [facility] Healthcare Address [address] [place] [address] Care Team Providers Care Telecommunication Systems Designer Name Role Phone Unavailable Primary Care Provider Unavailabl e Reason for Visit * Diagnostic Imaging (Routine) - Closed Specialty Diagnoses / Procedures Referred By Contac t Referred To Contact Procedures Breast Imaging Screening Outside Reference Transcribed Order, Provider Referral ID Status Reason Start Date Expiration Date Visits Re quested Visits Authorized [id number] Closed 01/19/2023 02/18/2024 1 1 Encounter Details Date Type Department Care Team (Late st Contact Info) Description 03/04/2007 Hospital Encounter [facility] [address] [place] [address] Social History Tobacco Use Types Packs/Day [...] on file Legal Sex Female 7:42 PM GARMENT LINER Gender Identity Not on file Sexual Orientation Not on file documented as of this encounter Functional Status documented as of this encounter Plan of Treatment Not on file documented as of this encounter Procedures Procedure Name Priority Date/Time Associated Diagnosis Comments BREAST IMAGING MG SCREENING OUTSIDE REFERENCE Routine 03/04/2007 12:00 AM GARMENT LINER documented in this encounter Results * Breast Imaging Screening Outside Reference (03/04/2007 12:00 AM GARMENT LINER) Impressions [facility] - 01/19/2023 8:44 AM GARMENT LINER These images are for Reference purposes only and have not been reviewed by [facility]. There will be no report generated by a [facility] Radiologist. Narrative [facility] - 01/19/2023 8:44 AM GARMENT LINER EXAMINATION: Images For Reference Purposes Only us Provider Transcribed Order IMG MAMMO PROCEDURES Final Result [facility] documented in this encounter Visit Diagnoses Not on filedocumented in this encounter
[2024-10-04 14:07] LABS: Anion Gap 7 mmol/L (4-12); Blood Urea Nitrogen 14 mg/dL (7-17); Calcium 9.7 mg/dL (8.4-10.2); Carbon Dioxide 28 mmol/L (22-30); Chloride 104 mmol/L (98-107); Cholesterol 163 mg/dL (0-200); Estimated Glomerular Filt Rate > 60; Glucose 97 mg/dL (65-110); HDL Direct 36 mg/dL; Potassium 5.0 mmol/L (3.4-5.0); Sodium 139 mmol/L (137-145); Triglycerides 133 mg/dL (<150)
[2024-10-04 14:37] LABS: Thyroid Stimulating Hormone 0.433 uIU/mL (0.465-4.680)
== END 2024-10-04 10:21 | disposition home or self-care (01) ==
PROVIDERS: PCP Internal Medicine; Visit Provider Clinical Nurse Specialist
DX: F41.9 Anxiety disorder, unspecified (principal); R73.01 Impaired fasting glucose; E78.1 Pure hyperglyceridemia; I10 Essential (primary) hypertension
CPT/HCPCS: 36415; 80048; 80061; 84443

== ENCOUNTER 2024-10-29 10:27 | Outpatient (CLI) | payer OTHER, BC, SELFPAY ==
--- OUTSIDE RECORDS SUMMARY | 2007-03-04 01:00 | XMS_ITS | Encounter Summary ---
Author Organization [facility] Healthcare Address [address] [place] [address] Care Team Providers Care Pulley Maintainer Name Role Phone Unavailable Primary Care Provider Unavailabl e Reason for Visit * Diagnostic Imaging (Routine) - Closed Specialty Diagnoses / Procedures Referred By Contac t Referred To Contact Procedures Breast Imaging Screening Outside Reference Transcribed Order, Provider Referral ID Status Reason Start Date Expiration Date Visits Re quested Visits Authorized [id number] Closed 01/19/2023 02/18/2024 1 1 Encounter Details Date Type Department Care Team (Late st Contact Info) Description 03/04/2007 Hospital Encounter [facility]) [address] [place] [address] Social History Tobacco Use Types Packs/Day Years Used Date Smoking Tobacco: Former Alcohol Use Standard Drinks/Week Comments Yes 0 [...] drinks on one occasion? Never 05/06/2020 Comments Unknown Sex and Gender Information Value Date Recorded Sex Assigned at Not on file Legal Sex Female 7:42 PM REELING MACHINE SETUP OPERATOR Gender Identity Not on file Sexual Orientation Not on file documented as of this encounter Functional Status documented as of this encounter Plan of Treatment Not on file documented as of this encounter Procedures Procedure Name Priority Date/Time Associated Diagnosis Comments BREAST IMAGING MG SCREENING OUTSIDE REFERENCE Routine 03/04/2007 12:00 AM REELING MACHINE SETUP OPERATOR documented in this encounter Results * Breast Imaging Screening Outside Reference (03/04/2007 12:00 AM REELING MACHINE SETUP OPERATOR) Impressions [facility] - 01/19/2023 8:44 AM REELING MACHINE SETUP OPERATOR These images are for Reference purposes only and have not been reviewed by [facility] Radiology. There will be no report generated by a [facility] Radiologist. Narrative [facility] - 01/19/2023 8:44 AM REELING MACHINE SETUP OPERATOR EXAMINATION: Images For Reference Purposes Only us Provider Transcribed Order IMG MAMMO PROCEDURES Final Result [facility] documented in this encounter Visit Diagnoses Not on filedocumented in this encounter
--- OUTSIDE RECORDS SUMMARY | 2009-03-07 01:00 | XMS_ITS | Encounter Summary ---
Author Organization [facility] Healthcare Address [address] [place] [address] Care Team Providers Care Paper Reel Operator Name Role Phone Unavailable Primary Care Provider Unavailabl e Reason for Visit * Diagnostic Imaging (Routine) - Closed Specialty Diagnoses / Procedures Referred By Contac t Referred To Contact Procedures Breast Imaging Screening Outside Reference Transcribed Order, Provider Referral ID Status Reason Start Date Expiration Date Visits Re quested Visits Authorized [id number] Closed 01/19/2023 02/18/2024 1 1 Encounter Details Date Type Department Care Team (Late st Contact Info) Description 03/07/2009 Hospital Encounter [facility] [address] [place] [address] Social History Tobacco Use Types Packs/Day [...] on file Legal Sex Female 7:42 PM EDITOR FARM JOURNAL Gender Identity Not on file Sexual Orientation Not on file documented as of this encounter Functional Status documented as of this encounter Plan of Treatment Not on file documented as of this encounter Procedures Procedure Name Priority Date/Time Associated Diagnosis Comments BREAST IMAGING MG SCREENING OUTSIDE REFERENCE Routine 03/07/2009 12:00 AM EDITOR FARM JOURNAL documented in this encounter Results * Breast Imaging Screening Outside Reference (03/07/2009 12:00 AM EDITOR FARM JOURNAL) Impressions [facility] - 01/19/2023 8:46 AM EDITOR FARM JOURNAL These images are for Reference purposes only and have not been reviewed by [facility] Radiology. There will be no report generated by a [facility] Radiologist. Narrative [facility] - 01/19/2023 8:46 AM EDITOR FARM JOURNAL EXAMINATION: Images For Reference Purposes Only us Provider Transcribed Order IMG MAMMO PROCEDURES Final Result [facility] documented in this encounter Visit Diagnoses Not on filedocumented in this encounter
--- OUTSIDE RECORDS SUMMARY | 2011-10-22 | XMS_ITS | Encounter Summary ---
Author Organization [facility] Healthcare Address [address] [place] [address] Care Team Providers Care Biometrics Experimentalist Name Role Phone Unavailable Primary Care Provider Unavailabl e Reason for Visit * Diagnostic Imaging (Routine) - Closed Specialty Diagnoses / Procedures Referred By Contac t Referred To Contact Procedures Breast Imaging Screening Outside Reference Transcribed Order, Provider Referral ID Status Reason Start Date Expiration Date Visits Re quested Visits Authorized [id number] Closed 01/19/2023 02/18/2024 1 1 Encounter Details Date Type Department Care Team (Late st Contact Info) Description 10/22/2011 Hospital Encounter [facility] [address] [place] [address] Social History Tobacco Use Types Packs/Day [...] on file Legal Sex Female 7:42 PM WINE BLENDER Gender Identity Not on file Sexual Orientation [...] CDT) Impressions [facility] - 01/19/2023 8:48 AM WINE BLENDER These images are for Reference purposes only and have not been reviewed by [facility] Radiology. There will be no report generated by a [facility] Radiologist. Narrative [facility] - 01/19/2023 8:48 AM WINE BLENDER EXAMINATION: Images For Reference Purposes Only us Provider Transcribed Order IMG MAMMO PROCEDURES Final Result [facility] documented in this encounter Visit Diagnoses Not on filedocumented in this encounter
--- OUTSIDE RECORDS SUMMARY | 2019-05-04 | XMS_ITS | Encounter Summary ---
Author Organization [facility] Healthcare Address [address] [place] [address] Care Team Providers Care Hide And Skin Fleshing Machine Operator Name Role Phone Lv Samayoa Primary Care Provider [phone] Reason for Visit * Diagnostic Imaging (Routine) - Closed Specialty Diagnoses / Procedures Referred By Contac t Referred To Contact Procedures Breast Imaging Screening Outside Reference Transcribed Order, Provider Referral ID Status Reason Start Date Expiration Date Visits Re quested Visits Authorized [id number] Closed 01/19/2023 02/18/2024 1 1 Encounter Details Date Type Department Care Team (Late st Contact Info) Description 05/04/2019 Hospital Encounter [facility] [address] [place] [address] Social History Tobacco Use Types Packs/Day [...] on file Legal Sex Female 7:42 PM ROLL HAND Gender Identity Not on file Sexual Orientation [...] CDT) Impressions [facility] - 01/19/2023 8:52 AM ROLL HAND These images are for Reference purposes only and have not been reviewed by [facility] Radiology. There will be no report generated by a [facility] Radiologist. Narrative RAD_M[facility] - 01/19/2023 8:52 AM ROLL HAND EXAMINATION: Images For Reference Purposes Only us Provider Transcribed Order IMG MAMMO PROCEDURES Final Result [facility] documented in this encounter Visit Diagnoses Not on filedocumented in this encounter Care Teams Hide And Skin Fleshing Machine Operator Relationship Specialty Start Date End Date Lv Samayoa [address] [place] [address] PCP - General 01/07/14 03/12/20 documented as of this encounter
--- OUTSIDE RECORDS SUMMARY | 2024-10-29 10:52 | XMS_ITS | Clinical Summary ---
Author Organization [facility] [employer] Address [address] [place] [address] Care Team Providers Care Mathematical Physicist Name Role Phone Unavailable Primary Care Provider Unavailabl e Source Comments [facility] [employer],non-owned Affiliates and Associated Physician Practices is amultiple site organization consisting of ambulatory clinics and hospital sitesin [place], [place], [place] and [place]. This disclosure is being madepursuant to the Care Everywhere program and may not contain all information available regarding this patient. Last updated 17.[employer] Allergies No known active allergies Immunizations Immunization [...] 2014 ZOSTER VACCINE (1 of 2) 2014 DEPRESSION SCREENING 02/22/2024 COVID-19 VACCINE (2023-2 5 season) 2024 INFLUENZA VACCINE (#1) 2024 HIB VACCINE Aged [...]
--- OUTSIDE RECORDS SUMMARY | 2024-10-29 10:53 | XMS_ITS | Clinical Summary ---
Author Organization [facility] Address [address] [place] [address] Care Team Providers Care Store Cashier Name Role Phone Cristian Herring DO Primary Care Provider [phone] Ilda Shine OIL FIELD WORKER Unavailable [phone] Allergies No known active allergies Medications buPROPion [...] on file Legal Sex Female 7:42 PM STEEL CRANE OPERATOR Gender Identity Not on file Sexual [...] 81.2 kg (179 lb) 01/31/2024 9:32 AM STEEL CRANE OPERATOR Height 147.3 cm (4' 9.99) 01/31/2024 9:32 AM CS T Body Mass Index 37.42 01/31/2024 9:32 AM STEEL CRANE OPERATOR Plan of Treatment Health Maintenance Due Date [...] Read Routine (OP Routine) 01/31/2024 10:40 AM STEEL CRANE OPERATOR Mass of left breast, unspecified quadrant from Last 3 Months or Most Recently Relevant to Health Maintenance Results * Diagnostic Mammogram Bilateral W Nabil (01/31/2024 10:40 AM STEEL CRANE OPERATOR) Anatomical Region Laterality Modality Breast Bilateral Mammography 01/31/2024 11:2 4 AM STEEL CRANE OPERATOR Impressions 01/31/2024 1:14 PM STEEL CRANE OPERATOR 1. Probably benign masses in the left [...] Brenden Au MD Narrative 01/31/2024 1:14 PM STEEL CRANE OPERATOR EXAMINATION: BILATERAL DIGITAL DIAGNOSTIC MAMMOGRAM INCLUDING CAD [...] it. Electronically signed by: Brenden Au MD [facility] OIL FIELD WORKER IMG MAMMO PROCEDURES Final Result from Last 3 Months or Most Recently Relevant to Health [place] [address] [employer] OPEN ACCESS [facility] CHOICE OOS BLUE ACCESS OOS BLUE ACC CHOICE OOS [employer] OPEN ACCESS Care Teams Store Cashier Relationship Specialty Start Date End Date Cristian Herring DO PCP - General Internal Medicine 03/13/20 Ilda Shine NP [address] [place] [address] Referring Physician Nurse Practitioner 01/04/23
[2024-10-29 13:01] LABS: Hemoglobin A1C 5.4 % (<5.7)
[2024-10-29 13:21] LABS: Anion Gap 9 mmol/L (4-12); Blood Urea Nitrogen 15 mg/dL (7-17); Calcium 9.5 mg/dL (8.4-10.2); Carbon Dioxide 29 mmol/L (22-30); Chloride 101 mmol/L (98-107); Estimated Glomerular Filt Rate > 60; Glucose 93 mg/dL (65-110); Potassium 4.3 mmol/L (3.4-5.0); Sodium 139 mmol/L (137-145)
[2024-10-29 13:25] LABS: Free T3 3.21 pg/mL (2.71-6.16); Free T4 Free Thyroxine 0.82 ng/dL (0.78-2.19)
[2024-10-29 13:57] LABS: Thyroid Stimulating Hormone < 0.015 uIU/mL (0.465-4.680)
== END 2024-10-29 10:28 | disposition home or self-care (01) ==
LOC: ANHGOSHLAB 10:29
PROVIDERS: PCP Clinical Nurse Specialist; Visit Provider Clinical Nurse Specialist
DX: R73.01 Impaired fasting glucose (principal); I10 Essential (primary) hypertension; R79.89 Other specified abnormal findings of blood chemistry
CPT/HCPCS: 36415; 80048; 83036; 84439; 84443; 84445; 84481

== ENCOUNTER 2024-11-13 13:39 | Outpatient (CLI) | payer OTHER, BC, SELFPAY ==
--- OUTSIDE RECORDS SUMMARY | 2007-03-04 01:00 | XMS_ITS | Encounter Summary ---
Author Organization [facility] Healthcare Address [address] [place] [address] Care Team Providers Care Division Operations Manager Name Role Phone Unavailable Primary Care Provider Unavailabl e Reason for Visit * Diagnostic Imaging (Routine) - Closed Specialty Diagnoses / Procedures Referred By Contac t Referred To Contact Procedures Breast Imaging Screening Outside Reference Transcribed Order, Provider Referral ID Status Reason Start Date Expiration Date Visits Re quested Visits Authorized [id number] Closed 01/19/2023 02/18/2024 1 1 Encounter Details Date Type Department Care Team (Late st Contact Info) Description 03/04/2007 Hospital Encounter [facility]) [address] [place] [address] Social History Tobacco Use Types Packs/Day [...] on file Legal Sex Female 7:42 PM RADIO NEWS WRITER Gender Identity Not on file Sexual Orientation Not on file documented as of this encounter Functional Status documented as of this encounter Plan of Treatment Not on file documented as of this encounter Procedures Procedure Name Priority Date/Time Associated Diagnosis Comments BREAST IMAGING MG SCREENING OUTSIDE REFERENCE Routine 03/04/2007 12:00 AM RADIO NEWS WRITER documented in this encounter Results * Breast Imaging Screening Outside Reference (03/04/2007 12:00 AM RADIO NEWS WRITER) Impressions [facility] - 01/19/2023 8:44 AM RADIO NEWS WRITER These images are for Reference purposes only and have not been reviewed by [facility] Radiology. There will be no report generated by a [facility] Radiologist. Narrative [facility] - 01/19/2023 8:44 AM RADIO NEWS WRITER EXAMINATION: Images For Reference Purposes Only us Provider Transcribed Order IMG MAMMO PROCEDURES Final Result [facility] documented in this encounter Visit Diagnoses Not on filedocumented in this encounter
--- OUTSIDE RECORDS SUMMARY | 2009-03-07 01:00 | XMS_ITS | Encounter Summary ---
Author Organization [facility] Healthcare Address [address] [place] [address] Care Team Providers Care Welt Stitch Cleaner Name Role Phone Unavailable Primary Care Provider Unavailabl e Reason for Visit * Diagnostic Imaging (Routine) - Closed Specialty Diagnoses / Procedures Referred By Contac t Referred To Contact Procedures Breast Imaging Screening Outside Reference Transcribed Order, Provider Referral ID Status Reason Start Date Expiration Date Visits Re quested Visits Authorized [id number] Closed 01/19/2023 02/18/2024 1 1 Encounter Details Date Type Department Care Team (Late st Contact Info) Description 03/07/2009 Hospital Encounter [facility]) [address] [place] [address] Social History Tobacco Use Types Packs/Day [...] on file Legal Sex Female 7:42 PM REACTOR FUELING SUPERVISOR Gender Identity Not on file Sexual Orientation Not on file documented as of this encounter Functional Status documented as of this encounter Plan of Treatment Not on file documented as of this encounter Procedures Procedure Name Priority Date/Time Associated Diagnosis Comments BREAST IMAGING MG SCREENING OUTSIDE REFERENCE Routine 03/07/2009 12:00 AM REACTOR FUELING SUPERVISOR documented in this encounter Results * Breast Imaging Screening Outside Reference (03/07/2009 12:00 AM REACTOR FUELING SUPERVISOR) Impressions [facility] - 01/19/2023 8:46 AM REACTOR FUELING SUPERVISOR These images are for Reference purposes only and have not been reviewed by [facility] Radiology. There will be no report generated by a [facility] Radiologist. Narrative RAD[facility] - 01/19/2023 8:46 AM REACTOR FUELING SUPERVISOR EXAMINATION: Images For Reference Purposes Only us Provider Transcribed Order IMG MAMMO PROCEDURES Final Result [facility] documented in this encounter Visit Diagnoses Not on filedocumented in this encounter
--- OUTSIDE RECORDS SUMMARY | 2011-10-22 | XMS_ITS | Encounter Summary ---
Author Organization [facility] Healthcare Address [address] [place] [address] Care Team Providers Care Construction Code Administrator Name Role Phone Unavailable Primary Care Provider Unavailabl e Reason for Visit * Diagnostic Imaging (Routine) - Closed Specialty Diagnoses / Procedures Referred By Contac t Referred To Contact Procedures Breast Imaging Screening Outside Reference Transcribed Order, Provider Referral ID Status Reason Start Date Expiration Date Visits Re quested Visits Authorized [id number] Closed 01/19/2023 02/18/2024 1 1 Encounter Details Date Type Department Care Team (Late st Contact Info) Description 10/22/[address] [facility] [address] [place] [address] Social History Tobacco Use Types Packs/Day [...] on file Legal Sex Female 7:42 PM NON DESTRUCTIVE TESTING TECHNICIAN Gender Identity Not on file Sexual Orientation [...] CDT) Impressions [facility] - 01/19/2023 8:48 AM NON DESTRUCTIVE TESTING TECHNICIAN These images are for Reference purposes only and have not been reviewed by [facility] Radiology. There will be no report generated by a [facility] Radiologist. Narrative RAD[facility] - 01/19/2023 8:48 AM NON DESTRUCTIVE TESTING TECHNICIAN EXAMINATION: Images For Reference Purposes Only us Provider Transcribed Order IMG MAMMO PROCEDURES Final Result [facility] documented in this encounter Visit Diagnoses Not on filedocumented in this encounter
--- OUTSIDE RECORDS SUMMARY | 2019-05-04 | XMS_ITS | Encounter Summary ---
Author Organization [facility] Healthcare Address [address] [place] [address] Care Team Providers Care Iron Melter Name Role Phone Lv Samayoa Primary Care Provider Reason for Visit * Diagnostic Imaging (Routine) - Closed Specialty Diagnoses / Procedures Referred By Contac t Referred To Contact Procedures Breast Imaging Screening Outside Reference Transcribed Order, Provider Referral ID Status Reason Start Date Expiration Date Visits Re quested Visits Authorized [id number] Closed 01/19/2023 02/18/2024 1 1 Encounter Details Date Type Department Care Team (Late st Contact Info) Description 05/04/2019 Hospital Encounter [facility] [address] [place] [id number] Social History Tobacco Use Types Packs/Day [...] on file Legal Sex Female 7:42 PM SILK OPENER Gender Identity Not on file Sexual Orientation [...] CDT) Impressions [facility] - 01/19/2023 8:52 AM SILK OPENER These images are for Reference purposes only and have not been reviewed by [facility]. There will be no report generated by a [facility] Radiologist. Narrative [facility] - 01/19/2023 8:52 AM SILK OPENER EXAMINATION: Images For Reference Purposes Only us Provider Transcribed Order IMG MAMMO PROCEDURES Final Result [facility] documented in this encounter Visit Diagnoses Not on filedocumented in this encounter Care Teams Iron Melter Relationship Specialty Start Date End Date Lv Samayoa [address] [place] [address] PCP - General 01/07/14 03/12/20 documented as of this encounter
--- OUTSIDE RECORDS SUMMARY | 2024-11-13 13:45 | XMS_ITS | Clinical Summary ---
Author Organization [facility] Address [address] [place] [address] Care Team Providers Care Galvanizer Zinc Name Role Phone Cristian Herring DO Primary Care Provider [phone] Ilda Shine GAUNTLET PAIRER Unavailable [phone]- [phone] Allergies No known active allergies Medications buPROPion [...] on file Legal Sex Female 7:42 PM ROLLER PRESSER OPERATOR Gender Identity Not on file Sexual [...] 81.2 kg (179 lb) 01/31/2024 9:32 AM ROLLER PRESSER OPERATOR Height 147.3 cm (4' 9.99) 01/31/2024 9:32 AM CS T Body Mass Index 37.42 01/31/2024 9:32 AM ROLLER PRESSER OPERATOR Plan of Treatment Health Maintenance Due [...] Read Routine (OP Routine) 01/31/2024 10:40 AM ROLLER PRESSER OPERATOR Mass of left breast, unspecified quadrant from Last 3 Months or Most Recently Relevant to Health Maintenance Results * Diagnostic Mammogram Bilateral W Nabil (01/31/2024 10:40 AM ROLLER PRESSER OPERATOR) Anatomical Region Laterality Modality Breast Bilateral Mammography 01/31/2024 11:2 4 AM ROLLER PRESSER OPERATOR Impressions 01/31/2024 1:14 PM ROLLER PRESSER OPERATOR 1. Probably benign masses in the [...] agrees with it. Electronically signed by: Brenden uA MD Narrative 01/31/2024 1:14 PM ROLLER PRESSER OPERATOR EXAMINATION: BILATERAL DIGITAL DIAGNOSTIC MAMMOGRAM INCLUDING [...] it. Electronically signed by: Brenden Au MD [facility] GAUNTLET PAIRER IMG MAMMO PROCEDURES Final Result from Last 3 Months or Most Recently Relevant to Health [place] [address] [employer] OPEN ACCESS [facility] CHOICE OOS BLUE ACCESS OOS BLUE ACC CHOICE OOS [employer] OPEN ACCESS Care Teams Galvanizer Zinc Relationship Specialty Start Date End Date Cristian Herring DO PCP - General Internal Medicine 03/13/20 Ilda Shine NP [address] [place] [address] Referring Physician Nurse Practitioner 01/04/23
--- OUTSIDE RECORDS SUMMARY | 2024-11-13 13:45 | XMS_ITS | Clinical Summary ---
Author Organization [facility] Address Formerly [facility] [place] [address] Care Team Providers Care Distribution Specialist Name Role Phone Raya Hernandez OIL HEATER INSTALLER Primary Care Provider [phone] Medications DULoxetine 60 MG capsule 06/05/2019 Active [...] 2) 2014 COVID-19 Vaccine (2023-2 5 season) 2024 Meningococcal B Vaccine Aged Out No l onger eligible based on patient's age to complete this topic Meningococcal Vaccine Aged Out No aleja oskar eligible based on patient's age to complete this topic RSV Immunizations Under 20 Months Aged Out No longer eligible based on patient's age to complete this topic Insurance [facility] Care Teams Distribution Specialist Relationship Specialty Start Date End Date Raya Hernandez FNP [address] [place] [id number] PCP - General Nurse Practitioner Family 05/15/19
--- OUTSIDE RECORDS SUMMARY | 2024-11-13 13:45 | XMS_ITS | Clinical Summary ---
Author Organization [facility] Address [address] [place] [address] Care Team Providers Care Environmental Management Specialist Name Role Phone Unavailable Primary Care Provider Unavailabl e Source Comments [facility],non-owned Affiliates and Associated Physician Practices is amultiple site organization consisting of ambulatory clinics and hospital sitesin [place], [place], [place] and [place]. This disclosure is being madepursuant to the Care Everywhere program and may not contain all information available regarding this patient. Last updated 17.[employer] [facility] Allergies No known active allergies Immunizations Immunization [...]
[2024-11-13 19:56] LABS: Free T3 2.91 pg/mL (2.71-6.16); Free T4 Free Thyroxine 0.83 ng/dL (0.78-2.19)
[2024-11-13 20:05] LABS: Thyroid Stimulating Hormone 0.614 uIU/mL (0.465-4.680)
== END 2024-11-13 13:40 | disposition home or self-care (01) ==
PROVIDERS: PCP Clinical Nurse Specialist; Visit Provider Clinical Nurse Specialist
DX: R79.89 Other specified abnormal findings of blood chemistry (principal)
CPT/HCPCS: 36415; 84439; 84443; 84481

== ENCOUNTER 2025-02-09 16:49 | Inpatient (IN) | payer OTHER, BC, SELFPAY ==
--- OUTSIDE RECORDS SUMMARY | 2007-03-04 | XMS_ITS | Encounter Summary ---
Author Organization [facility] Healthcare Address [address] [place] [address] Care Team Providers Care Corporate Accounting Manager Name Role Phone Unavailable Primary Care Provider Unavailabl e Reason for Visit * Diagnostic Imaging (Routine) - Closed Specialty Diagnoses / Procedures Referred By Thomas t Referred To Contact Procedures Breast Imaging Screening Outside Reference Transcribed Order, Provider Referral ID Status Reason Start Date Expiration Date Visits Re quested Visits Authorized [id number] Closed 01/19/2023 02/18/2024 1 1 Encounter Details Date Type Department Care Team (Late st Contact Info) Description 03/04/2007 Hospital Encounter [facility] [address] [place] [address] Social History Tobacco Use Types Packs/Day Years Used Date Smoking Tobacco: Former Passive Smoke Exposure: Past Smokeless Tobacco: Never Alcohol Use Standard Drinks/Week Comments Yes 0 (1 standard drink = 0.6 oz pur e alcohol) AUDIT-C Answer Date Recorded Q1: How often do you have a drink containing alc ohol? Monthly or less 05/06/2020 Q2: How many drinks containi ng alcohol do you have on a typical day when you are drinking? 1 or 2 05/06/2020 Q3: How often do you have si x or more drinks on one occasion? Never 05/06/2020 Comments No Sex and Gender Information Value Date Recorded Sex Assigned at Not on file Legal Sex Female 7:42 PM COLLATING MACHINE OPERATOR Gender Identity Not on file Sexual Orientation Not on file documented as of this encounter Plan of Treatment Not on file documented as of this encounter Procedures Procedure Name Priority Date/Time Associated Diagnosis Comments BREAST IMAGING MG SCREENING OUTSIDE REFERENCE Routine 03/04/2007 12:00 AM COLLATING MACHINE OPERATOR documented in this encounter Results * Breast Imaging Screening Outside Reference (03/04/2007 12:00 AM COLLATING MACHINE OPERATOR) Impressions [facility] - 01/19/2023 8:44 AM COLLATING MACHINE OPERATOR These images are for Reference purposes only and have not been reviewed by [facility] Radiology. There will be no report generated by a [facility] Radiologist. Narrative [facility] - 01/19/2023 8:44 AM COLLATING MACHINE OPERATOR EXAMINATION: Images For Reference Purposes Only us Provider Transcribed Order IMG MAMMO PROCEDURES Final Result [facility] documented in this encounter Visit Diagnoses Not on filedocumented in this encounter
--- OUTSIDE RECORDS SUMMARY | 2009-03-07 | XMS_ITS | Encounter Summary ---
Author Organization [facility] Healthcare Address [address] [place] [address] Care Team Providers Care Tea Bag Machine Tender Name Role Phone Unavailable Primary Care Provider Unavailabl e Reason for Visit * Diagnostic Imaging (Routine) - Closed Specialty Diagnoses / Procedures Referred By Thomas t Referred To Contact Procedures Breast Imaging Screening Outside Reference Transcribed Order, Provider Referral ID Status Reason Start Date Expiration Date Visits Re quested Visits Authorized [id number] Closed 01/19/2023 02/18/2024 1 1 Encounter Details Date Type Department Care Team (Late st Contact Info) Description 03/07/2009 Hospital Encounter [facility] [address] [place] [address] Social History Tobacco Use Types Packs/Day Years [...] on file Legal Sex Female 7:42 PM ADMITTING CLERK Gender Identity Not on file Sexual Orientation Not on file documented as of this encounter Plan of Treatment Not on file documented as of this encounter Procedures Procedure Name Priority Date/Time Associated Diagnosis Comments BREAST IMAGING MG SCREENING OUTSIDE REFERENCE Routine 03/07/2009 12:00 AM ADMITTING CLERK documented in this encounter Results * Breast Imaging Screening Outside Reference (03/07/2009 12:00 AM ADMITTING CLERK) Impressions [facility] - 01/19/2023 8:46 AM ADMITTING CLERK These images are for Reference purposes only and have not been reviewed by [facility] Radiology. There will be no report generated by a [facility] Radiologist. Narrative [facility] - 01/19/2023 8:46 AM ADMITTING CLERK EXAMINATION: Images For Reference Purposes Only us Provider Transcribed Order IMG MAMMO PROCEDURES Final Result [facility] documented in this encounter Visit Diagnoses Not on filedocumented in this encounter
--- OUTSIDE RECORDS SUMMARY | 2011-10-21 23:00 | XMS_ITS | Encounter Summary ---
Author Organization [facility] Healthcare Address [address] [place] [address] Care Team Providers Care Direct Mail Marketer Name Role Phone Unavailable Primary Care Provider Unavailabl e Reason for Visit * Diagnostic Imaging (Routine) - Closed Specialty Diagnoses / Procedures Referred By Thomas t Referred To Contact Procedures Breast Imaging Screening Outside Reference Transcribed Order, Provider Referral ID Status Reason Start Date Expiration Date Visits Re quested Visits Authorized [id number] Closed 01/19/2023 02/18/2024 1 1 Encounter Details Date Type Department Care Team (Late st Contact Info) Description 10/22/2011 Hospital Encounter [facility] [address] [place] [address] Social History Tobacco Use Types Packs/Day Years [...] on file Legal Sex Female 7:42 PM HEALTH EDITOR Gender Identity Not on file Sexual Orientation Not on file documented as of this encounter Plan of Treatment Not on file documented as of this encounter Procedures Procedure Name Priority Date/Time Associated Diagnosis Comments BREAST IMAGING MG SCREENING OUTSIDE REFERENCE Routine 10/22/2011 12:00 AM CDT documented in this encounter Results * Breast Imaging Screening Outside Reference (10/22/2011 12:00 AM CDT) Impressions [facility] - 01/19/2023 8:48 AM HEALTH EDITOR These images are for Reference purposes only and have not been reviewed by [facility] Radiology. There will be no report generated by a [facility] Radiologist. Narrative RAD[facility] - 01/19/2023 8:48 AM HEALTH EDITOR EXAMINATION: Images For Reference Purposes Only us Provider Transcribed Order IMG MAMMO PROCEDURES Final Result [facility] documented in this encounter Visit Diagnoses Not on filedocumented in this encounter
--- OUTSIDE RECORDS SUMMARY | 2019-05-03 23:00 | XMS_ITS | Encounter Summary ---
Author Organization [facility] Healthcare Address [facility] [place] [address] Care Team Providers Care Contact Lens Manufacturer Name Role Phone Lv Samayoa Primary Care Provider [phone] Reason for Visit * Diagnostic Imaging (Routine) - Closed Specialty Diagnoses / Procedures Referred By Thomas t Referred To Contact Procedures Breast Imaging Screening Outside Reference Transcribed Order, Provider Referral ID Status Reason Start Date Expiration Date Visits Re quested Visits Authorized [id number] Closed 01/19/2023 02/18/2024 1 1 Encounter Details Date Type Department Care Team (Late st Contact Info) Description 05/04/2019 Hospital Encounter [facility] [address] [place] [address] Social History Tobacco Use Types Packs/Day [...] on file Legal Sex Female 7:42 PM MEDICAL DETAILIST Gender Identity Not on file Sexual Orientation Not on file documented as of this encounter Plan of Treatment Not on file documented as of this encounter Procedures Procedure Name Priority Date/Time Associated Diagnosis Comments BREAST IMAGING MG SCREENING OUTSIDE REFERENCE Routine 05/04/2019 12:00 AM CDT documented in this encounter Results * Breast Imaging Screening Outside Reference (05/04/2019 12:00 AM CDT) Impressions [facility] - 01/19/2023 8:52 AM MEDICAL DETAILIST These images are for Reference purposes only and have not been reviewed by [facility] Radiology. There will be no report generated by a [facility] Radiologist. Narrative [facility] - 01/19/2023 8:52 AM MEDICAL DETAILIST EXAMINATION: Images For Reference Purposes Only us Provider Transcribed Order IMG MAMMO PROCEDURES Final Result [facility] documented in this encounter Visit Diagnoses Not on filedocumented in this encounter Care Teams Contact Lens Manufacturer Relationship Specialty Start Date End Date Lv Samayoa [address] [place], [place] [id number] PCP - General 01/07/14 03/12/20 documented as of this encounter
[2025-02-09] VITALS (9 sets, daily range): BP systolic 143–165; BP diastolic 58–120; PULSE 73–137; RESP 20–101; TEMP 36.4–37.1; O2SAT 93–100; BMI 30.8
--- NOTE | ~2025-02-09 | CT_ITS ---
EXAMINATION: CT abdomen pelvis w con DATE: 02/09/2025 18:41 INDICATION: 59-year-old female with abdominal pain. TECHNIQUE: Computed tomography (CT) of the abdomen and pelvis was performed without intravenous contrast. Automated exposure control and iterative reconstruction technique were employed. The dose-length product was 375.99 mGy-cm. COMPARISON: CT dated 12/16/2018. FINDINGS: Lung bases do not show acute findings. No focal lesions of liver and spleen. The gallbladder is no acute findings. Common bile duct measures 7 mm. Pancreas shows no acute findings. No calculi are obstruction of the kidneys. There is no evidence of small bowel obstruction. However, significant inflammatory changes of the distal transverse colon, descending colon are noted with mucosal edema and submucosal edema. Possible ischemic colitis. Recommend sigmoid colon are relatively normal. No free fluid. No free air. IMPRESSION: 1. Significant mucosal and submucosal inflammation of the distal transverse colon, descending colon up to the sigmoid junction are noted suggestive of severe colitis, probably ischemic colitis. Please correlate with clinical and lab results for in shape and ischemic versus infective colitis. 2. No evidence of free fluid. No evidence of free air.. Reviewed, dictated and finalized at location T. NICAL EDUCATION TEACHER IMPRESSION: 1. Significant mucosal and submucosal inflammation of the distal transverse col on, descending colon up to the sigmoid junction are noted suggestive of severe colitis, probably ischemic colitis. Please correlate with clinical and lab resu lts for in shape and ischemic versus infective colitis. 2. No evidence of free fluid. No evidence of free air..
--- OUTSIDE RECORDS SUMMARY | 2025-02-09 16:51 | XMS_ITS | Data Portability ---
Author Organization [facility] Address [address] [place] [address] Care Team Providers Care Higher Education Administrator Name Role Phone SALOMÓN ROMEO Primary Care Provider [phone] Assessment No assessment recorded. Plan of Treatment Reminders Order Date Submit Date Provider Last Modified By Organization Details Last Modified Time Details Appointments None recorded. Lab HbA1c (hemoglobin A1c), blood 2022 023 [facility] (Lab), [address] [place], [address], 3 06:19:05 lipid panel, blood 2022 023 [facility] (Lab), [address] [place], [address], 3 06:19:06 vitamin D, 25-hydroxy, total, serum 2022 023 [facility] (Lab), [address] [place], [address], 3 06:19:09 CBC w/ auto diff 2022 023 [facility] (Lab), [address], [place], [address], 3 06:19:04 CMP, serum or plasma 2022 023 [facility] (Lab), [address], [place], [address], 3 06:19:07 TSH, serum or plasma 2022 023 [facility] (Lab), [address], [place], [address], 3 06:19:08 Referral None recorded. Procedures None recorded. Surgeries None recorded. Imaging None recorded. Medication Orders estradiol 1 mg tablet 2022 023 [id number], [address] [place], [address], 3 14:23:08 Estrace 0.01% (0.1 mg/gram) vaginal cream 2022 023 [id number], [address] [place], [address], 3 14:23:08 Saxenda 3 mg/0.5 mL (18 mg/3 mL) subcutaneou s pen injector 2022 023 [id number], [address] [place], [address], 3 11:05:13 Saxenda 3 mg/0.5 mL (18 mg/3 mL) subcutaneou s pen injector 2022 023 [id number] [place], [address], 3 16:02:12 Patient TargetsNo targets recorded. Patient InstructionsNo instructions recorded. Reason for Referral None Reported. Results Created Date Observation Date Name Description Value Unit Range Abnormal Flag Note LastModifiedBy Organization Detail LastModifiedTime 07/13/19 23 07/12/2022 CBC W/DIF F WBC 8.1 10'3/ uL 3.6-10 .2 Not Available [facility] (Lab) [address], [place], [address], 07/13/2022 06:19:04 07/13/1907/12/2022 CBC W/DIF F RBC 4.76 10'6/ uL (based on docume nted legal sex) 4.10-5 .30 Not Available [facility] (Lab) [address], [place], [address], 07/13/2022 06:19:04 07/13/1907/12/2022 CBC W/DIF F HGB 12.7 g/dL (based on docume nted legal sex) 11.9-1 5.8 Not Available [facility] (Lab) [address], [place], [address], 07/13/2022 06:19:04 07/13/1907/12/2022 CBC W/DIF F HCT 43.5 % (based on docume nted legal sex) 37.4-4 8.3 Not Available [facility] (Lab) [address], [place], [address], 07/13/2022 06:19:04 07/13/1907/12/2022 CBC W/DIF F MCV 91.4 fL 82.0-9 9.0 Not Available [facility] (Lab) [address], [place], [address], 07/13/2022 06:19:04 07/13/1907/12/2022 CBC W/DIF F MCH 26.7 pg 27.0-3 3.0 low Not Available [facility] (Lab) [address], [place], [address], 07/13/2022 06:19:04 07/13/1907/12/2022 CBC W/DIF F MCHC 29.2 g/dL 32.0-3 6.0 low Not Available [facility] (Lab) [address] [place], [address], 07/13/2022 06:19:04 07/13/19 23 07/12/2022 CBC W/DIF F RDW 15.7 % 11.0-1 5.0 high Not Available [facility] (Lab) [address], [place], [address], 07/13/2022 06:19:04 07/13/19 23 07/12/2022 CBC W/DIF F plt 287 10'3/ uL 150-45 0 Not Available [facility] (Lab) [address], [place], [address], 07/13/2022 06:19:04 07/13/1907/12/2022 CBC W/DIF F MPV 12.1 fL 9.8-12 .7 Not Available [facility] (Lab) [address], [place], [address], 07/13/2022 06:19:04 07/13/19 23 07/12/2022 CBC W/DIF F NRBC's 0.0 % 0 Not Available [facility] (Lab) [address], [place], [address], 07/13/2022 06:19:04 07/13/1907/12/2022 CBC W/DIF F absolute NRBCs 0.0 10'3/ uL 0 Not Available [facility] (Lab) [address], [place], [address], 07/13/2022 06:19:04 07/13/19 23 07/12/2022 CBC W/DIF F neutrophils 60.8 % 37.0-7 2.0 Not Available [facility] (Lab) [address], [place], [address], 07/13/2022 06:19:04 07/13/19 23 07/12/2022 CBC W/DIF F lymphocytes 28.7 % 16.0-4 8.0 Not Available [facility] (Lab) [address], [place], [address], 07/13/2022 06:19:04 07/13/19 23 07/12/2022 CBC W/DIF F monocytes 5.9 % 4.0-14 .0 Not Available [facility] (Lab) [address] [facility], [place], [address], 07/13/2022 06:19:04 07/13/19 23 07/12/2022 CBC W/DIF F eosinophils 3.5 % 0.0-9. 0 Not Available [facility] (Lab) [address] [facility], [place], [address], 07/13/2022 06:19:04 07/13/19 23 07/12/2022 CBC W/DIF F basophils 0.9 % 0.0-2. 0 Not Available [facility] (Lab) [address] [place], [address], 07/13/2022 06:19:04 07/13/19 23 07/12/2022 CBC W/DIF F immature granulocytes 0.2 % no define d refere nce range Not Available [facility] (Lab) [address] [facility], [place], [address], 07/13/2022 06:19:04 07/13/19 23 07/12/2022 CBC W/DIF F absolute neutrophils 4.9 10'3/ uL 1.1-6. 0 Not Available [facility] (Lab) [address] [place], [address], 07/13/2022 06:19:04 07/13/19 23 07/12/2022 CBC W/DIF F absolute lymphocytes 2.3 10'3/ uL 0.7-3. 4 Not Available [facility] (Lab) [address] [place], [address], 07/13/2022 06:19:04 07/13/19 23 07/12/2022 CBC W/DIF F absolute monocytes 0.5 10'3/ uL 0.3-1. 0 Not Available [facility] (Lab) [address] [place], [address], 07/13/2022 06:19:04 07/13/19 23 07/12/2022 CBC W/DIF F absolute eosinophils 0.3 10'3/ uL 0.0-0. 6 Not Available [facility] (Lab) [address] [facility], [place], [address], 07/13/2022 06:19:04 07/13/19 23 07/12/2022 CBC W/DIF F absolute basophils 0.1 10'3/ uL 0.0-0. 1 Not Available [facility] (Lab) [address] [facility], [place], [address], 07/13/2022 06:19:04 07/13/19 23 07/12/2022 CBC W/DIF [...] resul ts are expec karen. Not Available [facility] (Lab) [address] [facility], [place], [address], 07/13/2022 06:19:04 07/13/1907/12/2022 HEMOG LOBIN A1C hemoglobin A1C 5.8 % 0-5.6 high The Ameri can Diabe boris [employer] iatio n recom mends that a prima ry goal of thera py harpreet d be a HBA1C of < 7% and that physi cians shoul d reeva luate the treat ment regim en in patie nts with HBA1C value s consi stent ly > 8%. <5.7% Tosin l 5.7 - 6.4% Incre ased risk for diabe boris >=6.5 % Diagn ostic of diabe boris <7.0% Goal of thera py >8.0% Actio n sugge sted Not Available [facility] (Lab) [address] [place], [address], 07/13/2022 06:19:05 07/13/1907/12/2022 LIPID PANEL ,AMA (LDL- CALC) total cholesterol 158 mg/dL 0-199 Not Available [facility] (Lab) [address] [place], [address], 07/13/2022 06:19:06 07/13/1907/12/2022 LIPID PANEL ,AMA (LDL- CALC) triglyceride s 116 mg/dL 0.00-1 50.00 NCEP Refer ence Value s for Trigl yceri dong: Tosin l: <150 mg/dL Borde rline High: 150 - 199 mg/dL High: 200 - 499 mg/dL Very High: >/= 500 mg/dL Not Available [facility] (Lab) [address] [place], [address], 07/13/2022 06:19:06 07/13/1907/12/2022 LIPID PANEL ,AMA (LDL- CALC) HDL cholesterol 60 mg/dL >40 Not Available [facility] (Lab) [address] [place], [address], 07/13/2022 06:19:06 07/13/1907/12/2022 LIPID PANEL ,AMA (LDL- [...] mg/dL , HDL <40 mg/dL Not Available [facility] (Lab) [address] [place], [address], 07/13/2022 06:19:06 07/13/1907/12/2022 LIPID PANEL ,AMA (LDL- CALC) non-HDL cholesterol 98 mg/dL no refere nce range A reaso nable goal for non-H DL lindsay stero l is one that is 30 mg/dL highe r than the LDL lindsay stero l goal. Not Available [facility] (Lab) [address], [place], [address], 07/13/2022 06:19:06 07/13/1907/12/2022 LIPID PANEL ,AMA (LDL- CALC) chol/HDL ratio 2.6 . 0.0-5. 0 On June 15, 2022, [facility] labor atori hannah douglas ed the equat ion for calcu latin g estim ated low-d ensit y lipop rotei n-cho leste rol (LDL- C) from the Fried jesse equat ion to the Kylie n/Hop kins equat ion. This new equat ion is only valid for lipid panel s with trigl yceri dong < 400 mg/dL . Studi es have demon strat ed that this new equat ion will impro ve the accur acy of LDL-C , espec ially in scena villalobos when LDL-C mary ntrat ions are relat ively low (< 100 mg/dL ), trigl yceri dong are eleva karen, or patie nt is non-f astin g. Refer ences : - Kylie puckett, Jaylan Umanzor, Dwayne Kang , [facility] dudley linda, Lv Noe, Lv isaac, [facility] , and Henry Mayer . 2013. Comp [...] de la vega RS, Moreno SR, Kylie puckett SS. Fast ing Versu s Nonfa sting and Low-D ensit y Lipop rotei n Lindsay stero l Accur acy. Circu lawrence n. 2017Feb 22;137 (1):1 0-19. Not Available [facility] (Lab) [address] [facility], [place], [address], 07/13/2022 06:19:06 07/13/19 23 07/12/2022 CMP(C OMPRE HENSI VE METAB OLIC PANEL ) sodium 139 mmol/ L 133-14 6 Not Available [facility] (Lab) [address] [facility], [place], [address], 07/13/2022 06:19:07 07/13/19 23 07/12/2022 CMP(C OMPRE HENSI VE METAB OLIC PANEL ) potassium 4.3 mmol/ L 3.5-5. 1 Not Available [facility] (Lab) [address] [facility], [place], [address], 07/13/2022 06:19:07 07/13/19 23 07/12/2022 CMP(C OMPRE HENSI VE METAB OLIC PANEL ) chloride 103 mmol/ L 98-107 Not Available [facility] (Lab) [address] [facility], [place], [address], 07/13/2022 06:19:07 07/13/19 23 07/12/2022 CMP(C OMPRE HENSI VE METAB OLIC PANEL ) carbon dioxide 30 mmol/ L 21-31 Not Available [facility] (Lab) [address] [facility], [place], [address], 07/13/2022 06:19:07 07/13/19 23 07/12/2022 CMP(C OMPRE HENSI VE METAB OLIC PANEL ) anion gap 6 mmol/ L 4-13 Not Available [facility] (Lab) [address] [facility], [place], [address], 07/13/2022 06:19:07 07/13/19 23 07/12/2022 CMP(C OMPRE HENSI VE METAB OLIC PANEL ) blood urea nitrogen 13 mg/dL 7-25 Not Available [facility] (Lab) [address], [place], [address], 07/13/2022 06:19:07 07/13/19 23 07/12/2022 CMP(C OMPRE HENSI VE METAB OLIC PANEL ) creatinine 0.68 mg/dL 0.60-1 .30 Not Available [facility] (Lab) [address], [place], [address], 07/13/2022 06:19:07 07/13/19 23 07/12/2022 CMP(C OMPRE HENSI VE METAB OLIC PANEL ) egfrcr (CKD-epi 2020) >90 mL/mi n/1.7 3_m2 >=60 Not Available [facility] (Lab) [address], [place], [address], 07/13/2022 06:19:07 07/13/19 23 07/12/2022 CMP(C OMPRE HENSI VE METAB OLIC PANEL ) calcium 9.1 mg/dL 8.3-10 .5 Not Available [facility] (Lab) [address], [place], [address], 07/13/2022 06:19:07 07/13/19 23 07/12/2022 CMP(C OMPRE HENSI VE METAB OLIC PANEL ) glucose 91 mg/dL 70-100 Not Available [facility] (Lab) [address], [place], [address], 07/13/2022 06:19:07 07/13/19 23 07/12/2022 CMP(C OMPRE HENSI VE METAB OLIC PANEL ) protein, total 6.9 g/dL 6.4-8. 3 Not Available [facility] (Lab) [address], [place], [address], 07/13/2022 06:19:07 07/13/19 23 07/12/2022 CMP(C OMPRE HENSI VE METAB OLIC PANEL ) albumin 3.7 g/dL 3.5-5. 0 Not Available [facility] (Lab) [address] [facility], [place], [address], 07/13/2022 06:19:07 07/13/19 23 07/12/2022 CMP(C OMPRE HENSI VE METAB OLIC PANEL ) ALT 13 units /L 9-43 Not Available [facility] (Lab) [address] [facility], [place], [address], 07/13/2022 06:19:07 07/13/19 23 07/12/2022 CMP(C OMPRE HENSI VE METAB OLIC PANEL ) alkaline phosphatase 75 units /L 34-104 Not Available [facility] (Lab) [address] [facility], [place], [address], 07/13/2022 06:19:07 07/13/19 23 07/12/2022 CMP(C OMPRE HENSI VE METAB OLIC PANEL ) AST 15 units /L 13-39 Not Available [facility] (Lab) [address] [facility], [place], [address], 07/13/2022 06:19:07 07/13/19 23 07/12/2022 CMP(C OMPRE HENSI VE METAB OLIC PANEL ) bilirubin, total 0.4 mg/dL 0.2-1. 2 Not Available [facility] (Lab) [address] [place], [address], 07/13/2022 06:19:07 07/13/19 23 07/12/2022 TSH, REFLE X FREE T4 TSH 0.86 uIU/m L 0.30-5 .33 Not Available [facility] (Lab) [address] [place], [address], 07/13/2022 06:19:08 07/13/19 23 07/12/2022 VITAM IN D, 25-OH (TOTA L D2/D3 ) vitamin D, 25-hydroxy, total 63.9 NG/mL 30.0-1 00.0 Sugge stive of Defic iency : <20 ng/mL Sugge stive of Insuf ficie ncy: 20-29 ng/mL Sugge stive of Suffi cienc y: 30-10 0 ng/mL Sugge stive of Toxic ity: >150 ng/mL Not Available [facility] (Lab) [address], [place], [address], 07/13/2022 06:19:09 12/10/1912/09/2022 MAMMO , scree harley, bilat eral No observ ation record ed. [email or web address] [facility] [address], [place], [address], 12/10/2022 11:21:49 12/10/1912/09/2022 MAMMO , scree harley, bilat eral No observ ation record ed. [email or web address] [facility] [address], [place], [address], 12/10/2022 12:11:27 01/01/2012/31/2022 , naa moore, unila teral No observ ation record ed. [email or web address] [facility] [address], [place], [address], 01/03/2023 17:41:48 01/01/2012/31/2022 naa WOODS, unila teral No observ ation record ed. [email or web address] [facility] [address], [place], [address], 01/04/2023 09:16:36 02/08/2012/31/2022 naa WOODS, unila teral No observ ation record ed. [email or web address] [facility] [address], [place], [address], 02/15/2023 14:07:43 02/10/2012/3112/31/2022 MAMMO , diagn ostic , digit al, unila teral No observ ation record ed. [email or web address] [facility] [address], [place], [address], 02/24/2023 17:30:52 Result Notes None recorded. Procedures Surgical History Date Name Laterality Status Provider Name and Address Organization Details Recorded Time 02/21/19 22 Date of Last Mammogram completed [facility] 06/09/2022 16:06:06 02/21/19 09 Partial Hysterectomy completed [facility] 07/27/2022 12:46:42 02/21/19 04 Date of Last Pap Smear completed [facility] 06/09/2022 16:05:02 09/12/19 01 Caesarean Section completed [facility] 07/27/2022 12:46:36 tonsilectomy/shree noids completed [facility] 06/09/2022 16:02:53 Colonoscopy completed [facility] 06/09/2022 16:02:53 Nsl/sins ndsc surg max sins completed [facility] 07/27/2022 12:46:56 Imaging Results None recorded. Procedure Notes None recorded. Medical Equipment None [...] Available No t Available Vitals Date Recorded Systolic And Diastolic Provider Name and Address Organization Details Last Updated DateTime 07/07/2022 122/70 mm[Hg] Ilda Shine [facility]- [address], [place], [address], [facility] 07/07/2022 14:19:54 Date Recorded Body height Body mass index (BMI) Body weight Provider Name and Address Organization Details Last Updated DateTime 07/07/2022 147.32 cm 39.7 kg/m2 30034.55 g Laurie Robles [facility] 07/07/2022 14:12:01 Date Recorded Body height Body mass index (BMI) Body weight Systolic And Diastolic Provider Name and Address Organization Details Last Updated DateTime 07/09/2022 147.32 cm 39.6 kg/m2 40614.75 g 132/80 mm[Hg] [facility] 07/09/2022 11:35:28 Date Recorded Body height Body mass index (BMI) Body weight Systolic And Diastolic Provider Name and Address Organization Details Last Updated DateTime 07/22/2022 147.32 cm 39.5 kg/m2 10033.96 g 136/70 mm[Hg] Analia Guillen [facility] 07/22/2022 15:25:34 Date Recorded Body height Body mass index (BMI) Body weight Systolic And Diastolic Provider Name and Address Organization Details Last Updated DateTime 08/20/2022 147.32 cm 39.5 kg/m2 55477.96 g 144/73 mm[Hg] Elise Porter [facility] 08/20/2022 10:50:58 Date Recorded Systolic And Diastolic Provider Name and Address Organization Details Last Updated DateTime 09/01/2022 126/78 mm[Hg] Ilda Shine [facility]- [address], [place], [address], [facility] 09/01/2022 14:21:43 Date Recorded Body height Body mass index (BMI) Body weight Systolic And Diastolic Provider Name and Address Organization Details Last Updated DateTime 09/01/2022 147.32 cm 37 kg/m2 75526.85 g 135/79 mm[Hg] Laurie Robles [facility] 09/01/2022 14:08:41 Social History Question Answer Notes LastModified by Organizat ion Details LastModified Time Tobacco Smoking Status Never Smoker Laurie Robles null, [facility] 09/01/2022 14:09:33 Are You Blind Or Do You Have Difficulty Seeing? No [email or web address] Information n ot available 06/09/2022 What Is Your Level Of Caffeine Consumption? Occasional [email or web address] Information not available 06/09/2022 In The 14 Days Before Symptom Onset, Have You Had Close Contact With A Laboratory-confirm ed COVID-19 While That Case Was Ill? No [email or web address] Information n ot available 06/09/2022 In The 14 Days Before Symptom Onset, Have You Had Close Contact With A Person Who Is Under Investigation For COVID-19 While That Person Was Ill? No Information not available 06/09/2022 Have You Been To An Area Known To Be High Risk For COVID-19? No [email or web address] Information not available 06/09/2022 Are You Deaf Or Do You Have Serious Difficulty Hearing? No [email or web address] Information not available 06/09/2022 What Type Of Diet Are You Following? CARBOHYDRATE [email or web address] Information n ot available 06/09/2022 What Is The Highest Grade Or Level Of School You Have Completed Or The Highest Degree You Have Received? [id number] [email or web address] Information not available 06/09/2022 Are There Any Guns Present In Your Home? No [email or web address] Information not available 06/09/2022 Do You Use Protection During Sex? No [email or web address] Information not available 06/09/2022 Do You Use Your Seat Belt Or Car Seat Routinely? Yes [email or web address] Information not available 06/09/2022 Do You Have Smoke And Carbon Monoxide Detectors In Your Home? Yes [email or web address] Information not available 06/09/2022 How Much Tobacco Do You Smoke? No [email or web address] Information not available 06/09/2022 Do You Use Sunscreen Routinely? No [email or web address] Information not available 06/09/2022 Have You Used IV Drugs? No [email or web address] Information not available 06/09/2022 Sex: Unknown Functional Status Question Answer Note LastModified by Organizat ion Details LastModified Time Do you use any illicit or recreational drugs? Yes [email or web address] Information not available 06/09/2022 What is your level of alcohol consumption? Occasional [email or web address] Information not available 06/09/2022 Are you able to walk independently without assistance or assistive devices? 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 Occasional [email or web address] Information not available 06/09/2022 Mental Status Question Answer Note LastModified by Organization D etails LastModified Time Do you feel stressed (tense, restless, nervous, or anxious, or unable to sleep at night)? [id number] [email or web address] Information not available 06/09/2022 Family History Relationship Description Onset Age of this Age Resolved Age Notes LastModified by Organization Details LastModified Time Paternal Grandmother Malignant neoplasm of breast [email or web address] Not available 06/09 16:02:08 Mother Malignant neoplasm of lung [email or web address] Not available 06/09 16:02:08 Paternal Aunt Malignant neoplasm of breast [email or web address] Not available 06/09 16:02:08 Son Anxiety disorder [email or web address] Not available 06/09 16:02:08 Maternal Grandfather Heart disease [email or web address] Not available 06/09 16:02:08 Father Anxiety disorder [email or web address] Not available 06/09 16:02:08 Medical History Condition Response Allergies (Food, seasonal, environmental ) Y Other N Drug/Latex Allergies/Reactions N Breast Cancer N Blood Transfusion N Dermatologic Disorders N [...] Neurologic/Epilepsy Y Endometriosis N High Cholesterol N Fibromyalgia Y Headaches Y Kidney Disease N Heart Problems Y Thyroid Problems N Kidney or Bladder Problems N GI Problems N Eating Disorder [...] Diagnosis SNOMED-CT Code Diagnosis ICD10 Code Diagnosis IMO Codes Diagnosis Note [id number] [facility] [address] [address] 06/09/2022 15:33:31 06/10/2022 17:09:43 Menopausal symptom [id number] N95.1 N95.2 Opts trial estradiol 1mgHx of [...] migraine w/ visual changes, breast cancer dx, [place]/stroke, DVT/PE, Endometria l cancer. Please contact office with any new or worsening side effects or adverse reactions. Or if a medical emergency please go to nearest ED/Urgency care for further evaluation . Icer Machine Vaginal dryness/dy spareunia: Counseled on the following: [...] to the vagina are recommende d. Resources: [email or web address] [email or web address].org/docs /default-s ource/for- women/mn-v aginal-dry ness.pdf Obese abdomen [id number] R19.8 [facility] insuranceW ants to consider weight loss clinic [facility] formation provided and will consider scheduling . [id number] SUBHA [facility] [address] [address] 07/07/2022 13:58:58 07/07/2022 14:30:55 Menopausal symptom [id number] N95.1 N95.2 Medication check of estradiol 1mg.She [...] counseling and review of plan of care. [id number] Josefa Douglas [facility] [address] [address] 07/09/2022 11:14:00 07/09/2022 16:09:37 Obesity [id number] E66.9 Detailed hx obtained today (see HPI)we [...] counseling and review of plan of care. [id number] Josefa Douglas NE[facility] [address] [address] 07/22/2022 15:15:01 07/22/2022 16:06:40 Obesity 386384286 E66.9 Reviewed all medication options, reviewed R/B/SE/A/C ost of all optionsshkerline has already tried phentermin e and contrave in the past with little resultswou ld like to start saxenda, she denies any contraindi cationsrx sentShkerline is going to continue exercising , joined a gym! She is following the dieticians recommenda tions, making hanges.Pre cautions discussed, to notify the office with any negative SE or questionsR TC in 4 weeks for f/u Time spent in visit is a total of 40 mins with at least 50% of visit consisting of counseling and review of plan of care. Prediabetes [id number] R7 3.03 [id number] Josefa Douglas [facility] [address],[place] [address] 08/20/2022 10:47:50 08/20/2022 11:19:31 Obesity 352151479 E66.9 Doing well since starting saxendashe is down 10lbs - feeling wellstarte d exercising , making healthy diet choicesshe would like to continue on the medication she will f/u in 4 weeks BP precaution s discussed Time spent in visit is a total of 20 mins with at least 50% of visit consisting of counseling and review of plan of care. [id number] SUBHA [facility] [address],[place] [address] 09/01/2022 13:57:55 09/01/2022 14:49:40 Menopausal symptom 29481558 N95.1 N95.2 Medication check.Estr adiol vag/oral therapy [...] Recorded Advance Directives Directive None Recorded Payers Insurance Date Sequence Insurance Name Policy Number Policy Sotomayor Covered Member ID Sotomayor Member ID Guarantor Name 09/13/2022 2 [place] [id number] Shin Kenney [id number] Sushila Kenney 06/09/2022 2 [employer] - DOS PRIOR TO 20 - [facility] BENEFITS PLAN [id number] Sushila Kenney [id number] Sushila Kenney 09/13/2022 1 [employer] - [facility] Sushila Kenney [id number] Sushila Kenney Notes Date Note Type Note Provider Name and Address Organization Details Recorded Time 3 text/html ROS as noted in the HPI Here today for medication check of Estradiol 1mg. Ilda Shine, [facility]- [address], [place], [address], [facility] 07/07/2022 14:24:11 3 text/html 56yop[age] for [...] lung cancer SUBHA Boyle [address], [place], [address], [facility] 07/09/2022 12:19:52 3 text/html 56yopresents for obesity management f/ustrish has met with the um rn, followed the dieticians recommendations when she was out shopping for groceries. She has made diet changesJoined a gym, started exercising againshe has a plan and is comitted to making changeswants to discuss medication options SUBHA Boyle [address], [place], [address], [facility] 07/22/2022 16:05:29 3 text/html 56yopresents for weight management f/yamila started saxenda at [facility] has lost 10lbs since starting the medicationstarted exercising more, eating healthierhas noticed her clothes are already fitting betterold SE is mild nausea at times SUBHA Boyle [address], [place], [address], [facility] 08/20/2022 11:06:28 3 text/html ROS as noted in the HPI Here today for updated med check on estradiol oral/vaginal. SUBHA Chang-BC [address], [place], [address], [facility] 09/01/2022 14:25:34 OBGyn Episode Ob Episode Information Episode Created Date Number of Fetuses Patient Bloodtype Patient rh Status Prepregnancy Weight lbs Domestic Partner Domestic Partner Phone Father Name Book Sorter Status 06/10/19 23 1 CLOSED Fetus Data First Name Last Name Admitted to NICU Weight (g) Sex Living Outcome Pediatric Complications Fetus ID Race Codes Race Delivery Type 2976.47 0704 M Full Term [id number] Vaginal Delivery Jace Calculation Initial Jace Date [...] Domestic Partner Domestic Partner Phone Father Name Book Sorter Status 06/10/19 23 1 CLOSED Fetus Data First Name Last Name Admitted to NICU Weight (g) Sex Living Outcome Pediatric Complications Fetus ID Race Codes Race Delivery Type 793.786 F Full Term [id number] Primary Jace Calculation Initial Jace Date Initial [...]
--- OUTSIDE RECORDS SUMMARY | 2025-02-09 16:51 | XMS_ITS | Clinical Summary ---
Author Organization [facility] Address [facility] [place] [address] Care Team Providers Care Senior Java Software Developer Name Role Phone Raya Hernandez ACCOUNTING MANAGER Primary Care Provider Medications DULoxetine 60 MG capsule 06/05/2019 Active [...] Vaccines (1 of 2) 2014 COVID-19 Vaccine ( - 2024-2 6 season) 2024 Influenza Adult (#1) 2024 RSV Immunization or 60+ Years (1 - 1-dose 75+ series) 12/22/2039 Hepatitis A Vaccines Aged Out No long er eligible based on patient's age to complete this topic Meningococcal B Vaccine Aged Out No l onger eligible based on patient's age to complete this topic Meningococcal Vaccine Aged Out No aleja oskar eligible based on patient's age to complete this topic RSV Immunizations Under 20 Months Aged Out No longer eligible based on patient's age to complete this topic Insurance [facility] Care Teams Senior Java Software Developer Relationship Specialty Start Date End Date Raya Hernandez FNP [address] [place] [phone] PCP - General Nurse Practitioner Family 05/15/19
--- OUTSIDE RECORDS SUMMARY | 2025-02-09 16:51 | XMS_ITS | Clinical Summary ---
Author Organization [facility] Address [address] [place] [id number] Care Team Providers Care Slip Cover Sewer Name Role Phone Cristian Herring DO Primary Care Provider [phone]- [phone] Ilda Shine PLUMBING ASSEMBLER Unavailable +1- [phone] Allergies No known active allergies Medications buPROPion XL (WELLBUTRIN XL) 150 mg 24 hr tablet Active DULoxetine DR (CYMBALTA) 60 mg capsule Take 1 capsule (60 mg total) by mouth 10/06/19 17 Active metoprolol XL (TOPROL-XL) 50 mg extended release tablet 1 tablet (50 mg total) 01/30/20 24 Active lisinopriL (PRINIVIL,ZEST RIL) 10 mg tablet 1 tablet (10 mg total) Active Zepbound 5 mg/0.5 mL pen injector INJECT 5 MG (0.5 ML) SUBCUTANEOUSLY WEEKLY 02/01/20 25 Active lisinopriL (PRINIVIL,ZEST RIL) 10 mg tablet Take by mouth 10/06/19 17 025 Discontin ued(Dupli jesusita order) METOPROLOL SUCCINATE ORAL 025 Discontin ued(Dupli jesusita order) Active Problems Problem Noted Date Diagnosed Date Depression 05/06/2020 Hypertension 01/07/2014 Overview (05/27/2016): Hypertension Arthralgia 01/07/2014 Overview (05/27/2016): Joint pain Encounters Date Type Department Care Team Description 02/06/2025 10:41 AM FINISHED STOCK INSPECTOR - 02/06/2025 11:59 PM FINISHED STOCK INSPECTOR Hospital Encounter [facility] - Breast [facility] [address] [address] Abnormal mammogram; Abnormal finding on breast imaging; Mass of left breast, unspecified quadrant Discharge Disposition: Discharge to home or self care 02/06/2025 10:41 AM FINISHED STOCK INSPECTOR - 02/06/2025 11:59 PM FINISHED STOCK INSPECTOR Hospital Encounter [facility] - Breast Imaging [facility] [address] [address] Abnormal finding on breast imaging Discharge Disposition: Discharge to home or self care 02/06/2025 10:15 AM FINISHED STOCK INSPECTOR Office Visit [facility] [address] [place] [phone] Lori Arenas NP Abnormal mammogram (Primary Dx) [facility] [address] [place] [phone] Jane Napier [facility] [address] [place] [phone] Karthikeyan Jane 01/24/2025 [facility] [address] [place] [phone] Ada Blunt NP Abnormal mammogram (Primary Dx); Abnormal finding on breast imaging; Mass of left breast, unspecified quadrant from Last 3 Months Immunizations Immunization Administration Dates Next Due MMR 09/21/2016 Pfizer SARS-CoV-2 Monovalent Vaccination (12+ Yrs) PURPLE 02/04/2021,06/09/2020,05/18/2020 Tdap 07/31/2014 Surgical History Surgery Date Site/Laterality Comments OTHER SURGICAL HISTORY in uteral surgery HYSTERECTOMY SECTION Medical History Medical History Date Comments Depression with anxiety Tachycardia Sinus problem Hypertension Chronic headaches Arthritis Family History Medical History Relation Name Comments Osteoarthritis Father Pancreatic cancer Father Lung cancer Father's Brother Breast cancer Father's Sister Arthritis Mother Lung cancer Mother Other Mother Cause of Breast cancer Mother's Sister Marylu Lung cancer Paternal Grandfather Breast cancer Paternal Grandmother Rheum arthritis Sister Ovarian cancer Neg Hx Prostate cancer Neg Hx Relation Name Status Comments Father Alive Father's Brother Father's Sister Mother Mother's Sister Marylu Alive Paternal Grandfather Paternal Grandmother Sister Social History Tobacco Use Types Packs/Day Years Used Date Smoking Tobacco: Former Passive Smoke Exposure: Past Smokeless Tobacco: Never Tobacco Cessation:Counseling Given: Not Answered Alcohol Use Standard Drinks/Week Comments Yes 0 [...] on file Legal Sex Female 7:42 PM FINISHED STOCK INSPECTOR Gender Identity Not on file Sexual Orientation Not on file Obstetrics History Para Term AB IAB SAB Ectopic Multiple Livin g Live Births 2 2 Date Outcome GA Total Labor Labor/2nd/3rd Weight Sex Type Anes PTL Evangelina A1 A5 Name Clin Last Filed Vital Signs Vital Sign Reading Time Taken Comments Blood Pressure 135/84 02/06/2025 10:11 AM FINISHED STOCK INSPECTOR Pulse 97 02/06/2025 10:11 AM FINISHED STOCK INSPECTOR Temperature 36.3 C (97.3 F) 02/06/2025 10:11 AM FINISHED STOCK INSPECTOR Respiratory Rate 18 02/06/2025 10:11 AM FINISHED STOCK INSPECTOR Oxygen Saturation 98% 02/06/2025 10:11 AM FINISHED STOCK INSPECTOR Inhaled Oxygen Concentration - - Weight 67.6 kg (149 lb) 02/06/2025 10:11 AM FINISHED STOCK INSPECTOR Height 147.3 cm (4' 9.99) 02/06/2025 10:[address] Body Mass Index 31.15 02/06/2025 10:11 AM FINISHED STOCK INSPECTOR Plan of Treatment Health Maintenance Due Date Last Done Comments Colon Cancer Screening-Colonoscopy 1965 Depression Screening 1964 Hepatitis C Screening 1964 Hepatitis B Screening 1982 Regular Well Visit/Exam 18-64 1982 Zoster Vaccine (1 of 2) 2014 DTaP/Tdap/Td Vaccine (2 - Td or Tdap) 07/31/2024 07/31/2014 Covid-19 Vaccine (4 - 2025-2 6 season) 2024 02/04/2021, 06/09/2020, 05/18/2020 Influenza Vaccine (#1) 2024 Breast Cancer Screening-Mammogram 02/06/2026 02/06/2025, 01/31/2024, 12/09/2022 Pneumococcal vaccine <65 Aged Out No longer eligible based on patient's age to complete this topic Procedures Procedure Name Priority Date/Time Associated Diagnosis Comments US BREAST LEFT LIMITED Schedule Routine, Read Routine (OP Routine) 02/06/2025 11:55 AM FINISHED STOCK INSPECTOR Abnormal mammogram Abnormal finding on breast imaging Mass of left breast, unspecified quadrant DIAGNOSTIC MAMMOGRAM BILATERAL W NABIL Schedule Routine, Read Routine (OP Routine) 02/06/2025 11:23 AM FINISHED STOCK INSPECTOR Abnormal finding on breast imaging from Last 3 Months Results * US Breast Left Limited (02/06/2025 11:55 AM FINISHED STOCK INSPECTOR) Anatomical Region Laterality Modality Breast Left Ultrasound 02/06/2025 12:3 5 PM FINISHED STOCK INSPECTOR Impressions 02/06/2025 12:35 PM FINISHED STOCK INSPECTOR 1. No new suspicious mammographic abnormality in EITHER breast. 2. Stable masses in the left breast at 4:00 and 3:00 compared to 2022 are considered benign. OVERALL FINAL ASSESSMENT: BI-RADS Category 2: Benign. RECOMMENDATION: Annual screening mammography is recommended. Dr. Sellers discussed the above findings and recommendations with the patient, who expressed her understanding of the management plan. Electronically signed by: Cherelle Sellers M.D. Narrative 02/06/2025 12:35 PM FINISHED STOCK INSPECTOR EXAMINATION: BILATERAL DIGITAL DIAGNOSTIC MAMMOGRAM INCLUDING CAD AND BILATERAL DIGITAL BREAST TOMOSYNTHESIS; LEFT BREAST SONOGRAM HISTORY: 59-year-old female presenting for follow-up of probably benign sonographic findings in the LEFT breast as well as annual mammographic evaluation of the BILATERAL breasts. COMPARISON: Multiple prior mammograms dating back to 2022, ultrasound 01/31/2024 and 02/15/2023 TECHNIQUE: Full field digital mammographic views of BOTH breasts were performed, including computer aided detection (CAD) and BILATERAL digital breast tomosynthesis (DBT). Directed ultrasound evaluation of the LEFT breast was performed. BREAST PARENCHYMAL COMPOSITION: There are scattered areas of fibroglandular density. MAMMOGRAM FINDINGS: There is no new suspicious abnormality in EITHER breast. SONOGRAM FINDINGS: LEFT breast, 4:00, 7 cm the nipple, there is a stable 0.6 cm x 0.9 cm x 0.5 cm oval hypoechoic mass without internal vascularity, similar to 2023. LEFT breast, 3:00, 6 cm the nipple, there is a 1.1 cm x 0.3 cm x 0.6 cm oval hypoechoic mass without internal vascularity, similar to 2023. us Ada Blunt NP IMG MAMMO PROCEDURES Final Result * Diagnostic Mammogram Bilateral W Nabil (02/06/2025 11:23 AM FINISHED STOCK INSPECTOR) Anatomical Region Laterality Modality Breast Bilateral Mammography 02/06/2025 12:3 5 PM FINISHED STOCK INSPECTOR Impressions 02/06/2025 12:35 PM FINISHED STOCK INSPECTOR 1. No new suspicious mammographic abnormality in EITHER breast. 2. Stable masses in the left breast at 4:00 and 3:00 compared to 202 are considered benign. OVERALL FINAL ASSESSMENT: BI-RADS Category 2: Benign. RECOMMENDATION: Annual screening mammography is recommended. Dr. Sellers discussed the above findings and recommendations with the patient, who expressed her understanding of the management plan. Electronically signed by: Cherelle Sellers M.D. Narrative 02/06/2025 12:35 PM FINISHED STOCK INSPECTOR EXAMINATION: BILATERAL DIGITAL DIAGNOSTIC MAMMOGRAM INCLUDING CAD AND BILATERAL DIGITAL BREAST TOMOSYNTHESIS; LEFT BREAST SONOGRAM HISTORY: 59-year-old female presenting for follow-up of probably benign sonographic findings in the LEFT breast as well as annual mammographic evaluation of the BILATERAL breasts. COMPARISON: Multiple prior mammograms dating back to 2022, ultrasound 01/31/2024 and 02/15/2023 TECHNIQUE: Full field digital mammographic views of BOTH breasts were performed, including computer aided detection (CAD) and BILATERAL digital breast tomosynthesis (DBT). Directed ultrasound evaluation of the LEFT breast was performed. BREAST PARENCHYMAL COMPOSITION: There are scattered areas of fibroglandular density. MAMMOGRAM FINDINGS: There is no new suspicious abnormality in EITHER breast. SONOGRAM FINDINGS: LEFT breast, 4:00, 7 cm the nipple, there is a stable 0.6 cm x 0.9 cm x 0.5 cm oval hypoechoic mass without internal vascularity, similar to 202. LEFT breast, 3:00, 6 cm the nipple, there is a 1.1 cm x 0.3 cm x 0.6 cm oval hypoechoic mass without internal vascularity, similar to 202. Ada Blunt PLUMBING ASSEMBLER IMG MAMMO PROCEDURES Final Result from Last 3 Months Insurance [employer] OPEN ACCESS BLUE ACC CHOICE OOS BLUE ACCESS OOS BLUE ACC CHOICE OOS [employer] OPEN ACCESS Care Teams Slip Cover Sewer Relationship Specialty Start Date End Date Cristian Herring DO PCP - General Internal Medicine 03/13/20 Ilda Shine NP [address] [place] [address] Referring Physician Nurse Practitioner 01/04/23
--- OUTSIDE RECORDS SUMMARY | 2025-02-09 16:51 | XMS_ITS | Clinical Summary ---
Author Organization [facility] Address [address] [place] [address] Care Team Providers Care Water Softener Servicer Name Role Phone Unavailable Primary Care Provider Unavailabl e Source Comments [facility],non-owned Affiliates and Associated Physician Practices is amultiple site organization consisting of ambulatory clinics and hospital sitesin [place], [place], [place] and [place]. This disclosure is being madepursuant to the Care Everywhere program and may not contain all information available regarding this patient. Last updated 17.Win[facility] Allergies No known active allergies Immunizations Immunization [...] 12/17/1982 DTAP/TDAP/TD VACCINES (1 - Tdap) 12/22/1983 PNEUMOCOCCAL VACCINE 50+ (1 of 1 - PCV) 2014 ZOSTER VACCINE (1 of 2) 2014 DEPRESSION SCREENING 02/22/2024 COVID-19 VACCINE (1 - 2024-2 6 season) 2024 INFLUENZA VACCINE (#1) 2024 Respiratory Syncytial Virus (RSV) Vaccine Pt: or over 60 yrs (1 - 1-dose 75+ series) 12/22/2039 HEPATITIS B VACCINE Aged Out No longe r eligible based on patient's age to complete this topic HIB VACCINE Aged Out No longer eligi [...]
[2025-02-09 17:19] LABS: Hematocrit 49.8 % (37.0-47.0); Hemoglobin 16.5 g/dL (12.0-15.0); Mean Corpuscular HGB Conc 33.1 g/dl (32-36); Mean Corpuscular Hemoglobin 28.7 pg (26-34); Mean Corpuscular Volume 86.6 fl (80-100); Platelet Count Result 401 k/mm3 (150-375); Red Blood Count 5.75 M/mm3 (4.2-5.4); White Blood Count 25.7 K/mm3 (4.5-10.0)
--- NOTE | 2025-02-09 17:29 | ED_ITS ---
HPI - General Adult General Chief complaint: GI Bleed Stated complaint: blood in the stool Time Seen by Provider: 02/09/25 17:01 Source: patient Mode of arrival: ambulatory Limitations: no limitations History of Present Illness HPI narrative: 59 YEARS OLD WHITE FEMALE CAME TO THE ED WITH HER FROM HOME BY PRIVATE CAR COMPLAINING OF NAUSEA, A LOT OF VOMITING AND LOT OF WATERY DIARRHEA STARTED SKIN CARE THERAPIST SUBSEQUENTLY STARTED HAVING FRESH RED BLOODY DIARRHEA. ASSOCIATED WITH DIFFUSE ABDOMINAL PAIN AND SPELLS OF SHAKING. HISTORY OF HYPERTENSION HYSTERECTOMY, SECTION, NORMAL STUDY 2 YEARS AGO FOR REGULAR CHECKUP PATIENT NOT ON ANTI-PLATELET OR ANTICOAGULANT MEDICATION. Related Data Home Medications ?Medication ?Instructions ?Recorded ?Confirmed ?Last Taken ?Type metoprolol succinate 50 mg 50 mg PO DAILY 03/05/1912/18/21 History tablet,extended release 24 hr multivitamin 1 tablet PO DAILY 02/13/24 0 10/08/24 Unknown History Allergies Allergy/AdvReac Type Severity Reaction Status Date / Time No Known Allergies Allergy Unknown Verified 10/08/24 14:45 Review of Systems 2 Review of Systems: All systems reviewed & are unremarkable except as noted in HPI and below PMFSH Past Medical History Medical History Encounter for wellness examination (Unknown) Post-operative pain Chronic pain disorder Leukocytosis Hypernatremia Seasonal allergies Chronic sinusitis Obesity (BMI 30-39.9) Obesity due to excess calories Hormone imbalance Impaired fasting glucose Subcutaneous mass of left thumb Facial pressure Polyarthritis Pain of left thumb Nasal congestion Nasal polyps Nasal obstruction PND (post-nasal drip) Blanka bullosa Nasal crusting Obesity, Class III, BMI 40-49.9 (morbid obesity) Fibromyalgia Tachycardia Hypertension Arthritis Sleep apnea Anxiety Allergies Surgical History Surgical History 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 H/O: hysterectomy 2003 Family History Family History Mother Patient's mother is , Onset Age: 56 Lung cancer Father Grandparent Family history of dementia, Onset Age: 76 Family history of coronary artery disease, Onset Age: 68 Breast cancer Acute myocardial infarction Other Family history of lung cancer Family history of malignant neoplasm of breast in first degree relative Social History Social History Social History: Caffeine-coffee Smoking status: Former smoker Smoking end date: 02/22/96 Additional smoking assessment comments: 1/2 pack per week x 10 years Alcohol intake: current Alcohol use details: SOCIALLY Substance use: current Substance use type: marijuana Other substance usage details: smoking Lack of Transportation: No Lack of Food: Never True Current Housing: I Have Housing Concerned About Future Housing: No Difficulty Paying Gas/Electric Bills: No Difficulty Paying for Meds: No Currently Unemployed: No Education: Associate Degree Difficulty w/ Childcare or Family Care: No Living arrangements: with family Spiritual care concerns: No Exam 2 Narrative: GENERAL APPEARANCE: WELL-DEVELOPED, WELL-NOURISHED SKIN: NORMAL COLOR HEAD: NORMOCEPHALIC, NONTRAUMATIC EYES: CLEAR CONJUNCTIVA ENT: OROPHARYNX NORMAL, EARS NORMAL, NOSE NORMAL NECK: SUPPLE, NONTENDER CHEST AND RESPIRATORY: AIRWAY PATENT, NO RESPIRATORY DISTRESS, NO ACCESSORY MUSCLE USE HEART: REGULAR RATE/RHYTHM ABDOMEN: SOFT, DIFFUSE TENDERNESS, NO ORGANOMEGALY, QUIET BOWEL SOUNDS, GUAIAC STOOL POSITIVE, RED FRESH BRIGHT BLOOD VASCULAR: NORMAL PERIPHERAL PULSES, NORMAL CAPILLARY REFILL. MUSCULOSKELETAL: NORMAL RANGE OF MOTION, NONTENDER BACK NEUROLOGIC: ALERT AND ORIENTED ?3, [facility] GUNSMITH IS NORMAL TESTED, NO GROSS MOTOR DEFICIT Course Consultations Gastroenterology: Time of Consult: 19:26 I have discussed the care of this patient with the following provider: DR. HOBSON Surgery: Time of Consult: 19:27 I have discussed the care of this patient with the following provider: DR. OSORIO Vital Signs Vital signs: Vital Signs Temperature 36.4 C 02/09/25 16:53 Pulse Rate 73 02/09/25 16:53 Respiratory Rate 20 02/09/25 16:53 Blood Pressure 150/120 H 02/09/25 16:53 Pulse Oximetry 100 02/09/25 16:53 Oxygen Delivery Room Air 02/09/25 16:53 Temperature 36.4 C 02/09/25 16:53 Pulse Rate 119 H 02/09/25 17:51 Respiratory Rate 23 H 02/09/25 17:51 Blood Pressure 162/101 H 02/09/25 17:51 Pulse Oximetry 100 02/09/25 17:51 Oxygen Delivery Room Air 02/09/25 16:53 MDM MDM Narrative Medical decision making narrative: PATIENT CAME WITH NAUSEA VOMITING DIARRHEA SUBSEQUENTLY STARTED HAVING BLOODY DIARRHEA STARTED SKIN CARE THERAPIST VITAL SIGNS STABLE, PHYSICAL EXAMINATION SHOWING RESTLESS PATIENT, LOOKS ILL, GUAIAC POSITIVE FOR FRESH RED BRIGHT BLOOD, NO GROSS BLEEDING. DIFFERENTIAL DIAGNOSIS GASTROENTERITIS, LOWER GI BLEED, ANEMIA, ELECTROLYTE IMBALANCE, DEHYDRATION, ISCHEMIC COLITIS, COLITIS, DIVERTICULITIS BLOOD WORKUP INCLUDES CBC, CMP, LIPASE LACTIC ACID SHOWED WBC 25.7, HEMOGLOBIN 16.5, HEMATOCRIT 49.8, OTHERWISE WITHIN NORMAL LIMIT PATIENT TESTED NEGATIVE FOR COVID FLU RSV, CT ABDOMEN AND PELVIS WITH IV CONTRAST SHOWED FINDING CONSISTENT WITH INFECTIOUS VERSUS ISCHEMIC COLITIS LEVAQUIN, FLAGYL STARTED DR. HOBSON CONSULTED DR. OSORIO CONSULTED ADMIT TO HOSPITALIST Differential Diagnosis Differential Diagnosis: ABOVE Medical Records I have reviewed the following patient records and this information was taken into consideration when formulating the assessment and plan.: previous ER visits Lab Data [facility] Lab Attestation statement: I personally reviewed the patient's lab results. 02/09/25 17:12 02/09/25 17:12 Labs: Lab Results 02/09/25 02/09/25 Range/Units 17:12 17:45 WBC 25.7 H (4.5-10.0) K/mm3 RBC 5.75 H (4.2-5.4) M/mm3 Hgb 16.5 H D (12.0-15.0) g/dL Hct 49.8 H (37.0-47.0) % MCV 86.6 (80-100) fl MCH 28.7 (26-34) pg MCHC 33.1 (32-36) g/dl RDW 13.8 (11.5-14.5) % Plt Count 401 H (150-375) k/mm3 MPV 10.8 H (7.4-10.4) fl Immature Gran % (Auto) Not Reportable Neut % (Auto) Not Reportable Lymph % (Auto) Not Reportable [place] % (Auto) Not Reportable Eos % (Auto) Not Reportable Baso % (Auto) Not Reportable Lymph # (Auto) Not Reportable [place] # (Auto) Not Reportable Eos # (Auto) Not Reportable Baso # (Auto) Not Reportable Abs Immat Gran (auto) Not Reportable Absolute Neuts (auto) Not Reportable Absolute Nucleated RBC Not Reportable Total Counted 100 Neutrophils % (Manual) 86 H (46-73) % Band Neutrophils % 0 (0-6) % Lymphocytes % (Manual) 13 L (18-44) % Monocytes % (Manual) 1 L (3-9) % Eosinophils % (Manual) 0 (0-4) % Basophils % (Manual) 0 (0-1) % Nucleated RBC % Not Reportable Abs Neuts (Manual) 22.10 H (1.3-6.7) K/mm3 Abs Lymphs (Manual) 3.34 (1.1-4.5) K/mm3 Abs Monocytes (Manual) 0.25 (0.1-0.90) K/mm3 Absolute Eos (Manual) 0.00 L (0.02-0.50) K/mm3 Abs Basophils (Manual) 0.00 (0.0-0.1) K/mm3 Platelet Estimate Slightly increased (Adequate) Large Platelets Present Giant Platelets Present Schistocytes None seen PT 13.6 (11.1-14.7) Seconds INR 1.0 APTT 25.8 (22.3-36.8) Seconds Sodium 140 (137-145) mmol/L Potassium 3.9 (3.4-5.0) mmol/L Chloride 102 (98-107) mmol/L Carbon Dioxide 22 (22-30) mmol/L Anion Gap 16 H (4-12) mmol/L BUN 19 H (7-17) mg/dL Creatinine 0.71 (0.7-1.0) mg/dL Estim Creat Clear Calc Not Reportable Estimated GFR > 60 (59 - ) Glucose 112 H (65-110) mg/dL Lactic Acid 1.9 (0.7-2.0) mmol/L Calcium 9.7 (8.4-10.2) mg/dL Total Bilirubin 1.0 (0.2-1.3) mg/dL AST 34 (14-36) U/L ALT 30 (6-35) U/L Alkaline Phosphatase 91 (38-126) U/L Total Protein 9.2 H (6.3-8.2) g/dL Albumin 4.9 (3.5-5.1) g/dL Influenza A (RT-PCR) Negative (Negative) Influenza B (RT-PCR) Negative (Negative) RSV (RT-PCR) Negative (Negative) SARS-CoV-2 RNA (RT-PCR) Negative (Negative) Blood Type Pending Antibody Screen Pending Imaging Data Radiologist's impression: ITS Impressions Abdomen/Pelvis CT 02/09/25 18:45 IMPRESSION: 1. Significant mucosal and submucosal inflammation of the distal transverse colon, descending colon up to the sigmoid junction are noted suggestive of severe colitis, probably ischemic colitis. Please correlate with clinical and lab results for in shape and ischemic versus infective colitis. 2. No evidence of free fluid. No evidence of free air.. Critical Care Time Critical Care Time Critical Care Time: Yes Time Type: Intermittent Initial evaluation, discuss w/ involved parties, attempting to gather old records: 10 minutes Documenting medical record: 5 minutes Review of results (EKG's, labs, imaging): 5 minutes Serial repeat bedside evaluation: 10 minutes Discussing case with multiple memebers of the care team and consultants: 5 minutes Total Critical Care Time: 35 Discharge Plan Discharge Clinical Impression: Colitis Patient Disposition: Still a Patient Condition: Guarded Prognosis Additional Instructions: ADMIT TO HOSPITALIST Patient Language: Kazakh Prescriptions: No Action albuterol sulfate 90 mcg/actuation HFA aerosol inhaler 2 puff INHALATION QID PRN (Reason: shortness of breath or wheezing) Qty: 8.5 0RF ibuprofen 600 mg tablet 600 mg PO TID PRN (Reason: fever or pain) Qty: 30 0RF multivitamin Tablet 1 tablet PO DAILY bupropion HCl [Wellbutrin XL] 300 mg tablet extended release 24 hr 300 mg PO QAM Qty: 90 3RF duloxetine 60 mg capsule,delayed release(DR/EC) See Rx Instructions .ROUTE .COMPLEX Qty: 90 3RF Dose Instruction: TAKE 1 CAPSULE DAILY Rx Instructions: TAKE 1 CAPSULE DAILY metoprolol succinate 50 mg tablet extended release 24 hr 50 mg PO DAILY Rx Instructions: take 1 tablet by oral route every day fluticasone propionate [Flonase Allergy Relief] 50 mcg/actuation spray,suspension 1 spray intranasal Q12H Qty: 48 0RF Rx Instructions: administer into each nostril lisinopril 10 mg tablet See Rx Instructions .ROUTE .COMPLEX Qty: 90 3RF Dose Instruction: TAKE 1 TABLET DAILY Rx Instructions: TAKE 1 TABLET DAILY Zepbound 5 mg/0.5 mL pen injector 5 mg subcut WEEKLY Qty: 2 0RF Follow-up/Referrals: Za Mcarthur APRN, [facility] [Primary Care Provider, Internal Medicine]
[2025-02-09 17:31] LABS: INR 1.0; Prothrombin Time 13.6 Seconds (11.1-14.7)
[2025-02-09 17:32] LABS: Partial Thromboplastin Time 25.8 Seconds (22.3-36.8)
[2025-02-09 17:33] LABS: Alanine Aminotransferase 30 U/L (6-35); Albumin Level 4.9 g/dL (3.5-5.1); Alkaline Phosphatase 91 U/L (38-126); Anion Gap 16 mmol/L (4-12); Aspartate Amino Transferase 34 U/L (14-36); Bilirubin,Total 1.0 mg/dL (0.2-1.3); Blood Urea Nitrogen 19 mg/dL (7-17); Calcium 9.7 mg/dL (8.4-10.2); Carbon Dioxide 22 mmol/L (22-30); Chloride 102 mmol/L (98-107); Estimated Glomerular Filt Rate > 60; Glucose 112 mg/dL (65-110); Potassium 3.9 mmol/L (3.4-5.0); Sodium 140 mmol/L (137-145); Total Cells Counted 100; Total Protein 9.2 g/dL (6.3-8.2)
[2025-02-09 17:34] LABS: Band Neutrophils Percent 0 % (0-6); Basophils Absolute Manual 0.00 K/mm3 (0.0-0.1); Basophils Percent Manual 0 % (0-1); Eosinophils Absolute Manual 0.00 K/mm3 (0.02-0.50); Eosinophils Percent Manual 0 % (0-4); Giant Platelets Present; Lymphocytes Absolute Manual 3.34 K/mm3 (1.1-4.5); Lymphocytes Percent Manual 13 % (18-44); Monocytes Absolute Manual 0.25 K/mm3 (0.1-0.90); Monocytes Percent Manual 1 % (3-9); Neutrophils Absolute Manual 22.10 K/mm3 (1.3-6.7); Neutrophils Percent Manual 86 % (46-73); Schistocytes None Seen
[2025-02-09] MEDS: ONDANSETRON INJ 4 MG/2 ML VIAL IV PUSH (17:53)
[2025-02-09] MEDS: SODIUM CHLORIDE 0.9% IV 1,000 ML 999 ML IV CONT ×3 (17:56→22:10)
[2025-02-09] MEDS: HYDROmorphone HCL INJ (*CRX) 1 MG/ML SYR 0.5 MG IV PUSH ×2 (17:58→22:09)
[2025-02-09 18:28] LABS: Influenza A QL RT-PCR Negative (Negative); Influenza B QL RT-PCR Negative (Negative); RSV RNA, RT-PCR Negative (Negative); SARS-CoV-2 RNA PCR Negative (Negative)
[2025-02-09] MEDS: SODIUM CHLORIDE 0.9% IV 1,000 ML 200 ML IV CONT ×2 (20:14→22:11)
[2025-02-09 20:57] LABS: Hematocrit 45.0 % (37.0-47.0); Hemoglobin 14.9 g/dL (12.0-15.0)
--- NOTE | 2025-02-09 21:18 | PC.NURSE ---
Notified Alysia RICHTER that patient's heart rate is in the 130's and that she had a 1.5 drop in her hbg in almost 4 hours. New orders received and followed through, will continue to monitor.
--- NOTE | 2025-02-09 21:30 | P.HP_ITS ---
H&P: HPI History of Present Illness Date/Time: 02/09/25 21:30 Chief Complaint: Abdominal pain and bloody stools Narrative: 59-year-old female with a past medical history of obesity, depression, obstructive sleep apnea, essential hypertension and allergic rhinitis who presented to the ER via private vehicle with abdominal pain and bloody stools. Patient reports that she woke up at 04:00 on the with acute onset nausea vomiting and diarrhea. She reported that she was having diarrhea the same time that she was vomiting into the trash can. She is having associated check moderate crampy generalized abdominal pain. She had no hematemesis or coffee- ground emesis. She had several mushy diarrheal brown stools but sometime in the afternoon transition to having pretty much straight maroon stools. She denies any recent ill contacts, fevers or chills. She did 8 some fried tacos from a restaurant about 8 hours prior to onset of symptoms. She denies any recent travel or exposure to untreated water/well water. She was noted to be tachycardic with heart rates in the 130-140s in the ER. She states that she does have some chronic sinus tachycardia and her heart rate usually run in the 85-110 range. She usually takes metoprolol to help control heart rate but was unable to take her metoprolol due to her other symptoms. Her blood pressures remained stable. She has been having some lightheadedness and unsteadiness on her feet with position changes that worsened as the day progressed. Her lightheadedness has improved after she received IV fluids. She denies any increased urinary frequency or urgency. She does have chronic stress urinary incontinence with coughing or sneezing. She reports that she started Tirzepatide 9 months ago and has lost 50 lb since then. Since she has lost the weight she has stops snoring and has not been using her CPAP. She does admit that she has been having more reflux symptoms since she started the GLP-1. In the ER CT demonstrated colitis and labs demonstrated leukocytosis. Initial hemoglobin was elevated to 16.5 consistent with hemoconcentration compared to baseline hemoglobin from several months ago of 13.3 suggestive of dehydration. She had a normal creatinine but slightly elevated BUN above baseline. Review of Systems 2 Review of Systems: 12 systems were reviewed with pertinent positives and negatives per HPI. Except as documented in the HPI, all other systems were reviewed and are negative. [facility] Past Medical History Medical History (Updated 02/09/25 @ 22:08 by Ashley Bales DO) Hypertriglyceridemia Obstructive sleep apnea Polysomnogram September 2019 moderate obstructive sleep apnea with recommended treatment of auto PAP pressures 6-18 Trigger thumb of left hand With steroid injection 08/2022 Depression Essential hypertension Pre-diabetes Vitamin D deficiency Chronic pain disorder Seasonal allergies Chronic sinusitis Obesity (BMI 30-39.9) Subcutaneous mass of left thumb Polyarthritis Nasal polyps Blanka bullosa Fibromyalgia Hypertension Anxiety Surgical History Surgical History (Updated 02/09/25 @ 21:59 by Ashley Bales DO) History of hysteroscopy (2006) History of 2 sections History of colonoscopy (02/2020) Internal hemorrhoids History of exploratory laparotomy (02/2002) Performed due to pelvic pain With extensive lysis of adhesions. Dr. Andria Renteria History of sinus surgery (11/2021) History of hysterectomy with unilateral oophorectomy (08/2023) Right oophorectomy, Dr. 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 They have a daughter and a son. She rarely drinks alcohol and only in moderation. She used to smoke socially but quit smoking in the mid . She is the primary caregiver for her daughter who has cerebral palsy. Code status: Full code Surrogate decision maker: Shin Kenney () Smoking status: Former smoker Tobacco type: cigarettes Smoking end date: 02/22/96 Additional smoking assessment comments: 1/2 pack per week x 10 years Alcohol intake: never Alcohol use details: SOCIALLY Substance use: never Substance use type: does not use Lack of Transportation: No Lack of Food: Never True Current Housing: I Have Housing Concerned About Future Housing: No Difficulty Paying Gas/Electric Bills: No Difficulty Paying for Meds: No Currently Unemployed: No Education: Associate Degree Difficulty w/ Childcare or Family Care: No Living arrangements: with family Spiritual care concerns: No Meds Home Medications and Allergies Home Medications ?Medication ?Instructions ?Recorded ?Confirmed ?Type metoprolol succinate 50 mg 50 mg PO DAILY 03/05/19 History tablet,extended release 24 hr ibuprofen 600 mg tablet 600 mg PO TID PRN fever or p ain 08/02/23 02/09/25 Rx #30 tabs multivitamin 1 tablet PO DAILY 02/13/24 1 04/12/24 History fluticasone propionate 50 1 spray intranasal Q12H #48 mL 03/23/24 02/09/25 Rx mcg/actuation nasal spray,suspension (Flonase Allergy Relief) lisinopril 10 mg tablet See Rx Instructions .Route 0 04/30/24 02/09/25 Rx .COMPLEX #90 tabs bupropion HCl 300 mg 24 hr tablet, 300 mg PO QAM #90 t abs 10/08/24 02/09/25 Rx extended release (Wellbutrin XL) duloxetine 60 mg capsule,delayed See Rx Instructions . Route 10/08/24 02/09/25 Rx release .COMPLEX #90 caps tirzepatide (weight loss) 5 mg/0.5 5 mg (0.5 mL) subcu t WEEKLY #2 mL 01/30/25 02/09/25 Rx mL subcutaneous pen injector (Zepbound) Allergies Allergy/AdvReac Type Severity Reaction Status Date / Time No Known Allergies Allergy Unknown Verified 02/09/25 23:15 Vital Signs Vital Signs - 24 hr 02/09/25 16:53 02/09/25 16:57 02/09/25 17:51 Temperature 97.6 F Pulse Rate 73 119 H Respiratory Rate 20 23 H Blood Pressure 150/120 H 148/86 H 162/101 H Pulse Oximetry 100 100 Oxygen Delivery Room Air 02/09/25 20:15 02/09/25 21:10 Temperature 98.5 F 98.7 F Pulse Rate 135 H 137 H Respiratory Rate 31 H 22 H Blood Pressure 156/90 H 160/70 H Pulse Oximetry 98 97 Oxygen Delivery Exam 2 Narrative: Weight 67.4 kg BMI 31.2 Const: Other: Mildly ill-appearing, obese, appears stated age HENMT: Other: HEENT mucous membranes are tacky, no oral pharyngeal erythema, crowded posterior oropharynx, petechiae to the soft palate, good dentition Eyes: Other: No conjunctival pallor, no scleral icterus, pupils are equal and reactive Neck: Other: Large neck circumference, no lymphadenopathy, no thyromegaly Resp: Other: Clear to auscultation bilaterally, no increased work of breathing Cardio: Other: Sinus tachycardia, 2+ bilateral radial pedal pulses GI: Other: Soft, nontender, nondistended, no organomegaly, hyperactive bowel sounds Skin: Other: No pallor, non jaundice, 2-3 second cap refill Neuro: Other: Alert oriented, speech is clear, no facial asymmetry, no localizing neurologic deficits noted during the course of conversation Extrem: Other: No clubbing, cyanosis or edema, moves all extremities equally Psych: Other: Appropriate mood and affect, pleasant and cooperative, judgment and insight intact Results Labs Labs: Laboratory Tests 02/09/25 20:51 02/09/25 17:12 02/09/25 02/09/25 02/09/25 17:12 17:45 20:51 WBC 25.7 H RBC 5.75 H Hgb 16.5 H D 14.9 Hct 49.8 H 45.0 MCV 86.6 MCH 28.7 MCHC 33.1 RDW 13.8 Plt Count 401 H MPV 10.8 H Immature Gran % (Auto) Not Reportable Neut % (Auto) Not Reportable Lymph % (Auto) Not Reportable [place] % (Auto) Not Reportable Eos % (Auto) Not Reportable Baso % (Auto) Not Reportable Lymph # (Auto) Not Reportable [place] # (Auto) Not Reportable Eos # (Auto) Not Reportable Baso # (Auto) Not Reportable Abs Immat Gran (auto) Not Reportable Absolute Neuts (auto) Not Reportable Absolute Nucleated RBC Not Reportable Total Counted 100 Neutrophils % (Manual) 86 H Band Neutrophils % 0 Lymphocytes % (Manual) 13 L Monocytes % (Manual) 1 L Eosinophils % (Manual) 0 Basophils % (Manual) 0 Nucleated RBC % Not Reportable Abs Neuts (Manual) 22.10 H Abs Lymphs (Manual) 3.34 Abs Monocytes (Manual) 0.25 Absolute Eos (Manual) 0.00 L Abs Basophils (Manual) 0.00 Platelet Estimate Slightly increased Large Platelets Present Giant Platelets Present Schistocytes None seen PT 13.6 INR 1.0 APTT 25.8 Sodium 140 Potassium 3.9 Chloride 102 Carbon Dioxide 22 Anion Gap 16 H BUN 19 H Creatinine 0.71 Estim Creat Clear Calc Not Reportable Estimated GFR > 60 Glucose 112 H Lactic Acid 1.9 Calcium 9.7 Total Bilirubin 1.0 AST 34 ALT 30 Alkaline Phosphatase 91 Total Protein 9.2 H Albumin 4.9 Influenza A (RT-PCR) Negative Influenza B (RT-PCR) Negative RSV (RT-PCR) Negative SARS-CoV-2 RNA (RT-PCR) Negative Blood Type Pending Antibody Screen Pending Impressions Abdomen/Pelvis CT 02/09/25 18:45 IMPRESSION: 1. Significant mucosal and submucosal inflammation of the distal transverse colon, descending colon up to the sigmoid junction are noted suggestive of severe colitis, probably ischemic colitis. Please correlate with clinical and lab results for in shape and ischemic versus infective colitis. 2. No evidence of free fluid. No evidence of free air.. Quality VTE Prophylaxis VTE prophylaxis: mechanical ordered (SCDs) Assessment and Plan Assessment and plan (1) Colitis: Code(s): K52.9 - Noninfective gastroenteritis and colitis, unspecified Status: Acute (2) Acute lower GI hemorrhage: Code(s): K92.2 - Gastrointestinal hemorrhage, unspecified Status: Acute (3) Sepsis: Qualifiers: Sepsis acute organ dysfunction status: without acute organ dysfunction Sepsis type: sepsis due to unspecified organism Qualified Code(s): A41.9 - Sepsis, unspecified organism Code(s): A41.9 - Sepsis, unspecified organism Status: Acute (4) Severe dehydration: Code(s): E86.0 - Dehydration Status: Acute Plan The patient has acute colitis CT read suggest in more suspicious of ischemia rather than infection but the patient's clinical picture is more consistent with acute infectious colitis. The patient does not have any lactic acidosis or risk factors for atherosclerosis and no evidence of significant atherosclerosis on imaging. No known risk factors for thrombosis either. Patient's symptoms have improved with IV fluids and antibiotics. Will place patient on empiric antibiotic therapy with Rocephin and Flagyl per antibiotics stewardship guidelines. Will order stool culture and C diff testing. The patient reports that she has not had any further bowel movements since around 15:00. The patient does fit sepsis criteria with primary sores being GI tract. Blood cultures were not obtained in the ER. Will add blood cultures at this time. The patient received 1 L fluid bolus in the ER I ordered an additional 2 L fluid bolus in since that time patient's heart rate has improved. Will decrease the patient's maintenance was from 200 mL an hour that started in the ER down to 150 mL an hour. Will repeat CBC and electrolyte panel including magnesium level with a.m. labs. Will continue to trend hemoglobin. GI has been consulted from the ER. Patient had prior normal screening colonoscopy in 2020. The patient does not have symptoms that suggest history of inflammatory colitis. Will resume the patient's home metoprolol will hold lisinopril and ibuprofen. Given recent report of increasing GERD symptoms will place the patient on Protonix 40 mg IV daily. Patient has been admitted as observation status. MEDICAL DECISION MAKING NARRATIVE -Spoke with the ED provider in detail regarding patient's evaluation, workup and management -Patient seen and examined at bedside -Collaborated with patient's nurse at the bedside in detail and addressed all concerns -Labs, electrolytes, radiology, investigations and test results personally reviewed and interpreted unless otherwise specified -ED/Consult/Nursing/Ancilliary notes on the chart reviewed and appreciated -applicable past medical records and labs were reviewed and unless stated otherwise. -Spoke with patient at bedside and diagnosis, plan of care was discussed and questions answered. Prior Studies I have reviewed the following patient records and this information was taken into consideration when formulating the assessment and plan.: previous labs, previous ER visits, previous hospitalizations and previous clinic visits Hospitalist [facility] Advance Care Plan I have confirmed that the patient's Advanced Care Plan is present, code status is documented, or surrogate decision maker is listed in patient medical record.: Yes Medication Reconciliation I have utilized all available resources to obtain, update and review the patients current medications (includes all prescriptions, OTC, herbals, cannabis, and nutritional supplements).: Yes
[2025-02-09] MEDS: cefTRIAXone 1 GM in SODIUM CHLORIDE 0.9% IV 50 ML 100 ML IVPB (22:15)
[2025-02-09] MEDS: metroNIDAZOLE 500 MG/ISO 100ML 500 MG/100 ML BAG 100 MG IVPB (22:17)
--- NOTE | 2025-02-09 22:31 | WPCEDHO ---
ED Hand Off Checklist All vitals saved:Y IV Site documented:Y All med administrations documented:Y Triage Note Triage Note Pt to ed in [facility] co abd pain, blood 02/09/25 16:53 in the stool, it started with black diarrhea and now is just red poor blood. Allergies No Known Allergies Allergy (Unknown, Verified 10/08/24 14:45) Family History (Last Updated 02/09/25 @ 22:02 by Ashley Bales, DO) Mother Lung cancer Father Grandparent Breast cancer Acute myocardial infarction Dementia Active Medications including assessments/comments Hydromorphone HCl (Hydromorphone Hcl Inj (*Crx) 1 Mg/Ml Syr) 0.5 mg IV PUSH Q4H PRN PRN Reason: Pain Rated 7-10 Last Admin: 02/09/25 22:09 Dose: 0.5 mg Documented By: SHAMA MAR Pain Assessment Document 02/09/25 22:09 [facility] (Rec: 02/09/25 22:09 [facility] [id number]) Pain Evaluation Pain Evaluation Assessment Pain Scale Pain Scale Used Numeric (1 - 10) Self Report Pain Assessment Reported Pain Level 7 Pain Score Pain Score 7: Self Report Sodium Chloride (Normal Saline Iv) 1,000 mls @ 200 mls/hr IV CONT .Q5H MARY Last Admin: 02/09/25 22:11 Dose: 200 mls/hr Documented By: [facility] Infusion/Titration Document 02/09/25 22:11 [facility] (Rec: 02/09/25 22:12 [facility] [id number]) Intake IV Site Peripheral Access Right Wrist Cumulative Intake ( 390 Rx) Container Volume 1,000 Waste Amount 0 Dosing Infusion Rate 200 Cumulative Dose Not Applicable Increase/Decrease Started/Running Elapsed Time Elapsed Time ( 1h 57m minutes) Infusion: 02/09/25 22:11 Dose: Infused Documented By: [facility] Infusion/Titration Document 02/09/25 22:11 [facility] (Rec: 02/09/25 22:12 [facility] [id number]) Intake IV Site Peripheral Access Right Wrist Intake 390 Cumulative Intake ( 390 bag) Cumulative Intake ( 390 Rx) Container Volume 0 Waste Amount 610 Dosing Infusion Rate 200 Cumulative Dose Not Applicable Increase/Decrease Infused Elapsed Time Elapsed Time ( 1h 57m minutes) Admin: 02/09/25 20:14 Dose: 200 mls/hr Documented By: [facility] Infusion/Titration Document 02/09/25 20:14 [facility] (Rec: 02/09/25 20:14 [facility] [id number]) Intake IV Site Peripheral Access Left Antecubital Container Volume 1,000 Waste Amount 0 Dosing Infusion Rate 200 Cumulative Dose Not Applicable Increase/Decrease Started Elapsed Time Elapsed Time ( 0m minutes) Administered/Completed Medications Discontinued Medications Hydromorphone HCl (Hydromorphone Hcl Inj (*Crx) 1 Mg/Ml Syr) 0.5 mg IV PUSH ONCE STA Stop: 02/09/25 17:29 Last Admin: 02/09/25 17:58 Dose: 0.5 mg Documented By: CA Sodium Chloride (Normal Saline Iv) 1,000 mls @ 999 mls/hr IV CONT .Q1H1M STA Stop: 02/09/25 18:29 Last Infusion: 02/09/25 19:35 Dose: Infused Documented By: Admin: 02/09/25 17:56 Dose: 999 mls/hr Documented By: CA Sodium Chloride (Normal Saline Iv) Confirm Administered Dose 1,000 mls @ as directed .ROUTE .STK-MED ONE Stop: 02/09/25 17:57 Last Admin: 02/09/25 18:14 Dose: Not Given Documented By: CA Non-Admin Reason: Duplicate Dose Levofloxacin/Dextrose (Levaquin 750 Mg/D5w 150 Ml) 750 mg in 150 mls @ 100 mls/hr IVPB Q24H MARY Last Admin: 02/09/25 22:20 Dose: Not Given Documented By: SHAMA Non-Admin Reason: Order Discontinued Metronidazole (Flagyl 500 Mg/Iso Soln 100 Ml) 500 mg in 100 mls @ 100 mls/hr IVPB ONCE ONE Stop: 02/09/25 22:14 Last Admin: 02/09/25 22:17 Dose: 100 mls/hr Documented By: SHAMA Ceftriaxone Sodium 1 gm/ (Sodium Chloride) 50 mls @ 100 mls/hr IVPB ONCE ONE Stop: 02/09/25 21:54 Last Admin: 02/09/25 22:15 Dose: 100 mls/hr Documented By: SHAMA Sodium Chloride (Normal Saline Iv) 1,000 mls @ 999 mls/hr IV CONT .Q1H1M ONE Stop: 02/09/25 22:20 Last Admin: 02/09/25 22:10 Dose: 999 mls/hr Documented By: SHAMA Sodium Chloride (Normal Saline Iv) 1,000 mls @ 999 mls/hr IV CONT .Q1H1M ONE Stop: 02/09/25 22:20 Last Admin: 02/09/25 22:10 Dose: 999 mls/hr Documented By: SHAMA Ondansetron HCl (Ondansetron Inj 4 Mg/2 Ml Vial) 4 mg IV PUSH ONCE STA Stop: 02/09/25 17:29 Last Admin: 02/09/25 17:53 Dose: 4 mg Documented By: CA Notes 02/09/25 21:18 Nurse Note by Gris Adam Notified Alysia AUT[employer] MECHANICS INSTRUCTOR that patient's heart rate is in the 130's and that she had a 1.5 drop in her hbg in almost 4 hours. New orders received and followed through, will continue to monitor. Initialized on 02/09/25 21:18 - END OF NOTE Interventions/Assessments IV / Saline Lock, Insert Start: 02/09/25 16:50 Freq: Status: Active Protocol: Document 02/09/25 17:11 [facility] (Rec: 02/09/25 17:11 [facility] [id number]) IV Assessment Peripheral Access Left Antecubital IV Catheter Access Initiated IV Insertion Date 02/09/25 IV Insertion Time 17:11 Catheter Gauge 20 IV Site Assessment WNL IV Care and WNL Maintenance IV / Saline Lock, Insert Start: 02/09/25 22:11 Freq: Status: Active Protocol: Document 02/09/25 22:11 [facility] (Rec: 02/09/25 22:12 [facility] [id number]) IV Assessment Peripheral Access Right Wrist IV Catheter Access Initiated IV Insertion Date 02/09/25 IV Insertion Time 21:45 Catheter Gauge 18 IV Insertion 1 Attempts Ultrasound Used for No Placement IV Site Assessment WNL IV Care and WNL Maintenance Last Vital Signs Temperature 98.4 F 02/09/25 22:27 Pulse Rate 128 H 02/09/25 22:27 Respiratory Rate 101 H 02/09/25 22:27 Pulse Oximetry 93 02/09/25 22:27 Blood Pressure 160/65 H 02/09/25 22:27 Blood Pressure Mean 96 02/09/25 22:27 Blood Pressure Position Supine 02/09/25 17:51 Oxygen Delivery Room Air 02/09/25 16:53 Weight 67.7 kg 02/09/25 16:53 Last Result - Abnormals Only WBC 25.7 K/mm3 (4.5-10.0) H 02/09/25 17:12 RBC 5.75 M/mm3 (4.2-5.4) H 02/09/25 17:12 Hgb 16.5 g/dL (12.0-15.0) H D 02/09/25 17:12 Hct 49.8 % (37.0-47.0) H 02/09/25 17:12 Plt Count 401 k/mm3 (150-375) H 02/09/25 17:12 MPV 10.8 fl (7.4-10.4) H 02/09/25 17:12 Neutrophils % (Manual) 86 % (46-73) H 02/09/25 17:12 Lymphocytes % (Manual) 13 % (18-44) L 02/09/25 17:12 Monocytes % (Manual) 1 % (3-9) L 02/09/25 17:12 Abs Neuts (Manual) 22.10 K/mm3 (1.3-6.7) H 02/09/25 17:12 Absolute Eos (Manual) 0.00 K/mm3 (0.02-0.50) L 02/09/25 17:12 Anion Gap 16 mmol/L (4-12) H 02/09/25 17:12 BUN 19 mg/dL (7-17) H 02/09/25 17:12 Glucose 112 mg/dL (65-110) H 02/09/25 17:12 Total Protein 9.2 g/dL (6.3-8.2) H 02/09/25 17:12 Most Recent Suicide Severity Rating Suicide Severity Rating NO RISK INDICATED 02/09/25 16:53
--- NOTE | 2025-02-09 23:14 | ADMGEN ---
This patient, Sushila Kenney, was admitted to IMU Room 210-01. Patient/family oriented to hospital policies and general routines including ID bracelet, bed and alarms, visiting hours, pain management, procedures, bathroom and other care routines, personal items, smoking policy, room service/diet, and visiting hours. Information on how to activate the Rapid Response Team has been discussed. Patient/Family are encouraged to report perceived risks to care and to ask questions if they do not understand what they are told or what they should do.
[2025-02-10] VITALS (16 sets, daily range): BP systolic 123–154; BP diastolic 61–73; PULSE 94–134; RESP 12–20; TEMP 36.5–37; O2SAT 96–100
[2025-02-10 02:24] LABS: Hematocrit 39.3 % (37.0-47.0); Hemoglobin 12.5 g/dL (12.0-15.0)
[2025-02-10] MEDS: SODIUM CHLORIDE 0.9% IV 1,000 ML 150 ML IV CONT ×3 (04:38→18:45)
[2025-02-10] MEDS: HYDROmorphone HCL INJ (*CRX) 1 MG/ML SYR 0.5 MG IV PUSH ×3 (04:39→16:37)
[2025-02-10] MEDS: metroNIDAZOLE 500 MG/ISO 100ML 500 MG/100 ML BAG 100 MG IVPB ×3 (05:21→22:39)
[2025-02-10] MEDS: buPROPion HCL XL (24 HR) 150 MG TABCR 300 MG PO (08:14)
[2025-02-10] MEDS: DULoxetine HCL 60 MG CAPSULE.DR PO (08:15)
[2025-02-10] MEDS: METOPROLOL SUCCINATE EXT REL 50 MG TABCR PO (08:15)
[2025-02-10] MEDS: PANTOPRAZOLE SODIUM IV 40 MG VIAL IV PUSH (08:15)
--- NOTE | 2025-02-10 08:29 | P.CONGS_ITS ---
Assessment and Plan Assessment and plan (1) Colitis: Code(s): K52.9 - Noninfective gastroenteritis and colitis, unspecified Status: Acute Assessment and Plan: Exam largely benign this morning, lactate noted to be normal, continue antibiotics and serial exams, serial labs (2) Acute lower GI hemorrhage: Code(s): K92.2 - Gastrointestinal hemorrhage, unspecified Status: Acute Assessment and Plan: hemodynamically stable, continue serial H&H, await GI evaluation History of Present Illness Consult details Consult date: 02/10/25 Reason for consult: abdominal pain Requesting physician: Ashley Bales DO Narrative: The patient is a 59-year-old female presenting to the emergency department complaining severe diffuse abdominal pain, bloody bowel movements. The patient reports that she started having severe abdominal pain, nausea and emesis, diarrhea at 4:00 a.m. on Tuesday morning. She reports that the symptoms progressed from diarrhea to maroon colored bloody bowel movements since that time. The patient reports that the nausea and emesis have improved. She continues to have diffuse abdominal pain, left greater than right. The patient denies any previous similar symptomatology. Workup in the emergency department, including imaging, is significant for left-sided colitis. Review of Systems 2 Review of Systems: All systems reviewed & are unremarkable except as noted in HPI and below PMFSH Past Medical History Medical History Hypertriglyceridemia Obstructive sleep apnea Polysomnogram September 2019 moderate obstructive sleep apnea with recommended treatment of auto PAP pressures 6-18 Trigger thumb of left hand With steroid injection 08/2022 Depression Essential hypertension Pre-diabetes Vitamin D deficiency Chronic pain disorder Seasonal allergies Chronic sinusitis Obesity (BMI 30-39.9) Subcutaneous mass of left thumb Polyarthritis Nasal polyps Blanka bullosa Fibromyalgia Hypertension Anxiety Surgical History Surgical History History of hysteroscopy (2006) History of 2 sections History of colonoscopy (02/2020) Internal hemorrhoids History of exploratory laparotomy (02/2002) Performed due to pelvic pain With extensive lysis of adhesions. Dr. Andria Renteria History of sinus surgery (11/2021) History of hysterectomy with unilateral oophorectomy (08/2023) Right oophorectomy, Dr. 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 They have a daughter and a son. She rarely drinks alcohol and only in moderation. She used to smoke socially but quit smoking in the mid . She is the primary caregiver for her daughter who has cerebral palsy. Code status: Full code Surrogate decision maker: Shin Kenney () Smoking status: Former smoker Tobacco type: cigarettes Smoking end date: 02/22/96 Additional smoking assessment comments: 1/2 pack per week x 10 years Alcohol intake: never Alcohol use details: SOCIALLY Substance use: never Substance use type: does not use Lack of Transportation: No Lack of Food: Never True Current Housing: I Have Housing Concerned About Future Housing: No Difficulty Paying Gas/Electric Bills: No Difficulty Paying for Meds: No Currently Unemployed: No Education: Associate Degree Difficulty w/ Childcare or Family Care: No Living arrangements: with family Spiritual care concerns: No Meds Home Medications and Allergies Home Medications ?Medication ?Instructions ?Recorded ?Confirmed ?Type metoprolol succinate 50 mg 50 mg PO DAILY 03/05/19 History tablet,extended release 24 hr ibuprofen 600 mg tablet 600 mg PO TID PRN fever or p ain 08/02/23 02/09/25 Rx #30 tabs multivitamin 1 tablet PO DAILY 02/13/24 1 04/12/24 History fluticasone propionate 50 1 spray intranasal Q12H #48 mL 03/23/24 02/09/25 Rx mcg/actuation nasal spray,suspension (Flonase Allergy Relief) lisinopril 10 mg tablet See Rx Instructions .Route 0 04/30/24 02/09/25 Rx .COMPLEX #90 tabs bupropion HCl 300 mg 24 hr tablet, 300 mg PO QAM #90 t abs 10/08/24 02/09/25 Rx extended release (Wellbutrin XL) duloxetine 60 mg capsule,delayed See Rx Instructions . Route 10/08/24 02/09/25 Rx release .COMPLEX #90 caps tirzepatide (weight loss) 5 mg/0.5 5 mg (0.5 mL) subcu t WEEKLY #2 mL 01/30/25 02/09/25 Rx mL subcutaneous pen injector (Continuent) Allergies Allergy/AdvReac Type Severity Reaction Status Date / Time No Known Allergies Allergy Unknown Verified 02/09/25 23:15 Vital Signs Vital Signs - 24 hr 02/09/25 16:53 02/09/25 16:57 02/09/25 17:51 Temperature 36.4 C Pulse Rate 73 119 H Respiratory Rate 20 23 H Blood Pressure 150/120 H 148/86 H 162/101 H Pulse Oximetry 100 100 Oxygen Delivery Room Air 02/09/25 20:15 02/09/25 21:10 02/09/25 22:00 Temperature 36.9 C 37.1 C 36.9 C Pulse Rate 135 H 137 H 129 H Respiratory Rate 31 H 22 H 21 H Blood Pressure 156/90 H 160/70 H 165/61 H Pulse Oximetry 98 97 97 Oxygen Delivery 02/09/25 22:27 02/09/25 23:00 02/09/25 23:40 Temperature 36.9 C 36.9 C Pulse Rate 128 H 124 H 132 H Respiratory Rate 101 H 20 Blood Pressure 160/65 H 143/58 H Pulse Oximetry 93 96 Oxygen Delivery 02/10/25 00:00 02/10/25 02:00 02/10/25 03:59 Temperature 36.5 C Pulse Rate 120 H 120 H 124 H Respiratory Rate 20 Blood Pressure 123/61 Pulse Oximetry 96 Oxygen Delivery 02/10/25 04:00 02/10/25 04:00 02/10/25 06:00 Temperature Pulse Rate 117 H 117 H 117 H Respiratory Rate 20 Blood Pressure Pulse Oximetry 96 Oxygen Delivery Room Air 02/10/25 08:15 Temperature Pulse Rate 134 H Respiratory Rate Blood Pressure Pulse Oximetry Oxygen Delivery Exam 2 Const: General: cooperative, comfortable, no acute distress and obese HENMT: Head: normal to inspection, normocephalic and atraumatic Eyes: General: appearance normal, both eyes and all related structures Neck: Neck: normal visual inspection, full ROM and no lymphadenopathy Resp: Auscultation: clear to auscultation bilaterally Cardio: Rate: regular rate Rhythm: regular rhythm GI: GI Palp: Yes abdominal tenderness, Yes Soft to palpation, Yes Tenderness to palpation present (GI), No Guarding due to palpation present (GI) and No Rigid due to palpation Skin: General skin exam: normal color and no rashes or lesions noted Neuro: General: patient oriented x3 and CN's II-XI intact bilaterally Extrem: General: normal to inspection and full ROM Results Labs 02/10/25 02:04 02/09/25 17:12 Labs: Abnormal lab results 02/09/25 Range/Units 17:12 WBC 25.7 H (4.5-10.0) K/mm3 RBC 5.75 H (4.2-5.4) M/mm3 Hgb 16.5 H D (12.0-15.0) g/dL Hct 49.8 H (37.0-47.0) % Plt Count 401 H (150-375) k/mm3 MPV 10.8 H (7.4-10.4) fl Neutrophils % (Manual) 86 H (46-73) % Lymphocytes % (Manual) 13 L (18-44) % Monocytes % (Manual) 1 L (3-9) % Abs Neuts (Manual) 22.10 H (1.3-6.7) K/mm3 Absolute Eos (Manual) 0.00 L (0.02-0.50) K/mm3 Anion Gap 16 H (4-12) mmol/L BUN 19 H (7-17) mg/dL Glucose 112 H (65-110) mg/dL Total Protein 9.2 H (6.3-8.2) g/dL Diabetes panel 02/09/25 Range/Units 17:12 Sodium 140 (137-145) mmol/L Potassium 3.9 (3.4-5.0) mmol/L Chloride 102 (98-107) mmol/L Carbon Dioxide 22 (22-30) mmol/L BUN 19 H (7-17) mg/dL Creatinine 0.71 (0.7-1.0) mg/dL Glucose 112 H (65-110) mg/dL Calcium 9.7 (8.4-10.2) mg/dL AST 34 (14-36) U/L ALT 30 (6-35) U/L Alkaline Phosphatase 91 (38-126) U/L Total Protein 9.2 H (6.3-8.2) g/dL Albumin 4.9 (3.5-5.1) g/dL Calcium panel 02/09/25 Range/Units 17:12 Calcium 9.7 (8.4-10.2) mg/dL Albumin 4.9 (3.5-5.1) g/dL Pituitary panel 02/09/25 Range/Units 17:12 Sodium 140 (137-145) mmol/L Potassium 3.9 (3.4-5.0) mmol/L Chloride 102 (98-107) mmol/L Carbon Dioxide 22 (22-30) mmol/L BUN 19 H (7-17) mg/dL Creatinine 0.71 (0.7-1.0) mg/dL Glucose 112 H (65-110) mg/dL Calcium 9.7 (8.4-10.2) mg/dL Adrenal panel 02/09/25 Range/Units 17:12 Sodium 140 (137-145) mmol/L Potassium 3.9 (3.4-5.0) mmol/L Chloride 102 (98-107) mmol/L Carbon Dioxide 22 (22-30) mmol/L BUN 19 H (7-17) mg/dL Creatinine 0.71 (0.7-1.0) mg/dL Glucose 112 H (65-110) mg/dL Calcium 9.7 (8.4-10.2) mg/dL Total Bilirubin 1.0 (0.2-1.3) mg/dL AST 34 (14-36) U/L ALT 30 (6-35) U/L Alkaline Phosphatase 91 (38-126) U/L Total Protein 9.2 H (6.3-8.2) g/dL Albumin 4.9 (3.5-5.1) g/dL All other labs normal.
[2025-02-10 08:44] LABS: Hematocrit 43.2 % (37.0-47.0); Hemoglobin 13.9 g/dL (12.0-15.0); Immature Granulocyte Percent A 0.5 % (0-0.5); Lymphocytes Absolute Auto 3.64 K/mm3 (0.9-3.2); Mean Corpuscular HGB Conc 32.2 g/dl (32-36); Mean Corpuscular Hemoglobin 29.0 pg (26-34); Mean Corpuscular Volume 90.0 fl (80-100); Nucleated Red Blood Cells Absolute Auto 0.000 K/mm3 (0.0-0.012); Nucleated Red Blood Cells Perc 0.0 % (0.0-0.2); Platelet Count Result 311 k/mm3 (150-375); Red Blood Count 4.80 M/mm3 (4.2-5.4); White Blood Count 22.4 K/mm3 (4.5-10.0)
[2025-02-10 09:12] LABS: Anion Gap 9 mmol/L (4-12); Blood Urea Nitrogen 10 mg/dL (7-17); Calcium 8.3 mg/dL (8.4-10.2); Carbon Dioxide 20 mmol/L (22-30); Chloride 109 mmol/L (98-107); Estimated Glomerular Filt Rate > 60; Glucose 91 mg/dL (65-110); Magnesium 1.8 mg/dL (1.6-2.3); Potassium 3.4 mmol/L (3.4-5.0); Sodium 138 mmol/L (137-145)
[2025-02-10] MEDS: ONDANSETRON INJ 4 MG/2 ML VIAL IV PUSH (11:09)
[2025-02-10 14:24] LABS: Hematocrit 38.3 % (37.0-47.0); Hemoglobin 12.5 g/dL (12.0-15.0)
--- NOTE | 2025-02-10 15:04 | WPDGICN ---
Assessment and Plan Assessment and plan (1) Colitis: Code(s): K52.9 - Noninfective gastroenteritis and colitis, unspecified Status: Acute Assessment and Plan: could be ischemic because noted blood in stool with pain, also infectious continue with iv hydration, abx, pending stool samples wbc 24 k, will monitor surgery has evaluated patient (2) Acute lower GI hemorrhage: Code(s): K92.2 - Gastrointestinal hemorrhage, unspecified Status: Acute Assessment and Plan: from colitis no need of endoscopic intervention probably colonoscopy 4-6 weeks after resolution of acute process (3) Severe dehydration: Code(s): E86.0 - Dehydration Status: Acute Assessment and Plan: treated (4) Sepsis: Qualifiers: Sepsis type: sepsis due to unspecified organism Sepsis acute organ dysfunction status: without acute organ dysfunction Qualified Code(s): A41.9 - Sepsis, unspecified organism Code(s): A41.9 - Sepsis, unspecified organism Status: Acute Assessment and Plan: medical treatment (5) Nausea and vomiting in adult: Code(s): R11.2 - Nausea with vomiting, unspecified Status: Acute GI Consult Note Consult date/time: 02/10/25 15:04 Reason for consult: colitis HPI: Sushila Kenney is a 59 year old female with past medical history of obesity, depression, obstructive sleep apnea, essential hypertension and allergic rhinitis who presented to the ER via private vehicle with new onset of abdominal pain and bloody stools. She woke up yesterday with new onset nausea vomiting and diarrhea that was mushy brown but then turned bloody, also had associated moderate crampy generalized abdominal pain. She denies any recent ill contacts, fevers or chills. She had fried tacos from a restaurant about 8 hours prior to onset of symptoms. She denies any recent travel. She had lightheadedness and unsteadiness on her feet with position changes. CT demonstrated colitis and labs demonstrated leukocytosis. Initial hemoglobin was elevated to 16.5. Her last colonoscopy 2020 normal. She is still having pain. Denies previous colitis. Review of Systems Constitutional: Constitutional: Denies chills Eyes: Eyes: Denies blurry vision ENT: Reports Normal hearing present Cardiovascular: Cardiovascular: Denies chest pain Respiratory: Respiratory: Denies cough Gastrointestinal: Gastrointestinal: Reports abdominal pain, Reports hematochezia, Reports diarrhea, Reports nausea and Reports vomiting Genitourinary: Genitourinary: Denies dysuria Musculoskeletal: Musculoskeletal: Denies neck pain Integumentary/Breasts: Skin/Breast: Denies rash Neurologic: Denies Abnormal speech present Psychiatric: Psychiatric: Denies anxiety [facility] Past Medical History Medical History (Updated 02/10/25 @ 15:08 by Kel Pantoja MD) Nausea and vomiting in adult Hypertriglyceridemia Obstructive sleep apnea Polysomnogram September 2019 moderate obstructive sleep apnea with recommended treatment of auto PAP pressures 6-18 Trigger thumb of left hand With steroid injection 08/2022 Depression Essential hypertension Pre-diabetes Vitamin D deficiency Chronic pain disorder Seasonal allergies Chronic sinusitis Obesity (BMI 30-39.9) Subcutaneous mass of left thumb Polyarthritis Nasal polyps Blanka bullosa Fibromyalgia Hypertension Anxiety Surgical History Surgical History History of hysteroscopy (2006) History of 2 sections History of colonoscopy (02/2020) Internal hemorrhoids History of exploratory laparotomy (02/2002) Performed due to pelvic pain With extensive lysis of adhesions. Dr. Mejía History of sinus surgery (11/2021) History of hysterectomy with unilateral oophorectomy (08/2023) Right oophorectomy, Dr. 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 They have a daughter and a son. She rarely drinks alcohol and only in moderation. She used to smoke socially but quit smoking in the mid . She is the primary caregiver for her daughter who has cerebral palsy. Code status: Full code Surrogate decision maker: Shin Kenney () Smoking status: Former smoker Tobacco type: cigarettes Smoking end date: 02/22/96 Additional smoking assessment comments: 1/2 pack per week x 10 years Alcohol intake: never Alcohol use details: SOCIALLY Substance use: never Substance use type: does not use Lack of Transportation: No Lack of Food: Never True Current Housing: I Have Housing Concerned About Future Housing: No Difficulty Paying Gas/Electric Bills: No Difficulty Paying for Meds: No Currently Unemployed: No Education: Associate Degree Difficulty w/ Childcare or Family Care: No Living arrangements: with family Spiritual care concerns: No Meds Home Medications and Allergies Home Medications ?Medication ?Instructions ?Recorded ?Confirmed ?Type metoprolol succinate 50 mg 50 mg PO DAILY 03/05/19 02/09/25 History tablet,extended release 24 hr ibuprofen 600 mg tablet 600 mg PO TID PRN fever or pain 08/02/23 02/09/25 Rx #30 tabs multivitamin 1 tablet PO DAILY 02/13/24 02/09/25 History fluticasone propionate 50 1 spray intranasal Q12H #48 mL 03/23/24 02/09/25 Rx mcg/actuation nasal spray,suspension (Flonase Allergy Relief) lisinopril 10 mg tablet See Rx Instructions .Route 04/30/24 02/09/25 Rx .COMPLEX #90 tabs bupropion HCl 300 mg 24 hr tablet, 300 mg PO QAM #90 tabs 10/08/24 02/09/25 Rx extended release (Wellbutrin XL) duloxetine 60 mg capsule,delayed See Rx Instructions .Route 10/08/24 02/09/25 Rx release .COMPLEX #90 caps tirzepatide (weight loss) 5 mg/0.5 5 mg (0.5 mL) subcut WEEKLY #2 mL 01/30/25 02/09/25 Rx mL subcutaneous pen injector (Zepbound) Allergies Allergy/AdvReac Type Severity Reaction Status Date / Time No Known Allergies Allergy Unknown Verified 02/09/25 23:15 Vital Signs Vital Signs - 24 hr 02/09/25 16:53 02/09/25 16:57 02/09/25 17:51 Temperature 97.6 F Pulse Rate 73 119 H Respiratory Rate 20 23 H Blood Pressure 150/120 H 148/86 H 162/101 H Pulse Oximetry 100 100 Oxygen Delivery Room Air 02/09/25 20:15 02/09/25 21:10 02/09/25 22:00 Temperature 98.5 F 98.7 F 98.4 F Pulse Rate 135 H 137 H 129 H Respiratory Rate 31 H 22 H 21 H Blood Pressure 156/90 H 160/70 H 165/61 H Pulse Oximetry 98 97 97 Oxygen Delivery 02/09/25 22:27 02/09/25 23:00 02/09/25 23:40 Temperature 98.4 F 98.4 F Pulse Rate 128 H 124 H 132 H Respiratory Rate 101 H 20 Blood Pressure 160/65 H 143/58 H Pulse Oximetry 93 96 Oxygen Delivery 02/10/25 00:00 02/10/25 02:00 02/10/25 03:59 Temperature 97.7 F Pulse Rate 120 H 120 H 124 H Respiratory Rate 20 Blood Pressure 123/61 Pulse Oximetry 96 Oxygen Delivery 02/10/25 04:00 02/10/25 04:00 02/10/25 06:00 Temperature Pulse Rate 117 H 117 H 117 H Respiratory Rate 20 Blood Pressure Pulse Oximetry 96 Oxygen Delivery Room Air 02/10/25 08:00 02/10/25 08:00 02/10/25 08:00 Temperature 98.4 F Pulse Rate 109 H 117 H Respiratory Rate 16 Blood Pressure 146/73 H Pulse Oximetry 100 Oxygen Delivery Room Air 02/10/25 08:15 02/10/25 10:00 02/10/25 12:00 Temperature Pulse Rate 134 H 94 102 H Respiratory Rate Blood Pressure Pulse Oximetry Oxygen Delivery Room Air 02/10/25 12:00 02/10/25 12:00 02/10/25 14:00 Temperature 98.3 F Pulse Rate 106 H 103 H 102 H Respiratory Rate 12 Blood Pressure 138/61 Pulse Oximetry 99 Oxygen Delivery Exam Const: General: cooperative, comfortable, no acute distress and obese HENMT: Head: normal to inspection, normocephalic and atraumatic Eyes: General: appearance normal, both eyes and all related structures Neck: Neck: normal visual inspection, full ROM and no lymphadenopathy Resp: Auscultation: clear to auscultation bilaterally Cardio: Rate: regular rate Rhythm: regular rhythm GI: GI Palp: Yes abdominal tenderness, Yes Soft to palpation, Yes Tenderness to palpation present (GI), No Guarding due to palpation present (GI) and No Rigid due to palpation Skin: General skin exam: normal color and no rashes or lesions noted Neuro: General: patient oriented x3 Speech: normal speech Motor exam (neuro): 5/5 motor strength present throughout Extrem: General: normal to inspection and full ROM Psych: Mental Status: mental status grossly normal Results Labs 02/10/25 14:14 02/10/25 08:27 Labs: Short CBC 02/09/25 02/09/25 02/10/25 Range/Units 17:12 20:51 02:04 WBC 25.7 H (4.5-10.0) K/mm3 Hgb 16.5 H D 14.9 12.5 (12.0-15.0) g/dL Hct 49.8 H 45.0 39.3 (37.0-47.0) % Plt Count 401 H (150-375) k/mm3 02/10/25 02/10/25 Range/Units 08:27 14:14 WBC 22.4 H (4.5-10.0) K/mm3 Hgb 13.9 12.5 (12.0-15.0) g/dL Hct 43.2 38.3 (37.0-47.0) % Plt Count 311 (150-375) k/mm3 BMP 02/09/25 02/10/25 17:12 08:27 Sodium 140 138 Potassium 3.9 3.4 Chloride 102 109 H Carbon Dioxide 22 20 L BUN 19 H 10 D Creatinine 0.71 0.64 L Glucose 112 H 91 Calcium 9.7 8.3 L Liver Function 02/09/25 Range/Units 17:12 Total Bilirubin 1.0 (0.2-1.3) mg/dL AST 34 (14-36) U/L ALT 30 (6-35) U/L Alkaline Phosphatase 91 (38-126) U/L Albumin 4.9 (3.5-5.1) g/dL
--- NOTE | 2025-02-10 17:10 | P.PNIM_ITS ---
Assessment and Plan Assessment and Plan (1) Colitis: Code(s): K52.9 - Noninfective gastroenteritis and colitis, unspecified Status: Acute Assessment and Plan: The patient presents with abdominal pain and rectal bleeding and found to have sepsis with tachycardia, leukocytosis related to colitis. Patient had prior normal screening colonoscopy in 2020. She received fluid bolus in ED CT ABd/Pelvis showing acute colitis suggestive of ischemia rather than infection but the patient's clinical picture is more consistent with acute infectious colitis and patient without evidence of significant atherosclerosis on imaging Lactic acidosis normal BCx collected and started on IV fluids and antibiotics with Rocephin and Flagyl per antibiotics stewardship guidelines. Stool culture and C diff testing ordered GI ans GenSurg consulted and appreciate their input. Monitor HH. Monitor stool output. (2) Sepsis: Qualifiers: Sepsis acute organ dysfunction status: without acute organ dysfunction Sepsis type: sepsis due to unspecified organism Qualified Code(s): A41.9 - Sepsis, unspecified organism Code(s): A41.9 - Sepsis, unspecified organism Status: Acute Assessment and Plan: As above (3) Acute lower GI hemorrhage: Code(s): K92.2 - Gastrointestinal hemorrhage, unspecified Status: Acute Assessment and Plan: As above (4) Severe dehydration: Code(s): E86.0 - Dehydration Status: Acute Assessment and Plan: Started IV fluids. Continue the same. Plan DVT Prophylaxis - SCDs Code status - Full Subjective Date/time seen: 02/10/25 17:10 Interval history: 59yo female with obesity, depression, LAY, HTN and allergic rhinitis who pres ented to the ER with abdominal pain and bloody stools. Patient still having bloody stools. She has not been on antibiotics recently. No history of ulcerative colitis or Crohn's disease. No family history of IBD. Abdominal pain has improved today. Exam Narrative: AF 98.3 154/70 105 18 100% ra Gen - NARD Chest - CTA bilaterally, nml RR CV -tachycardic but regular. Telemetry showing sinus tachycardia Abd - Soft, ND, +BS, referred pain but no rebound Ext - No pedal edema Psych - Nml mood and affect Skin - Warm and dry Objective Data Vital Signs Vital Signs: Vital Signs - 24 hr 02/09/25 17:51 02/09/25 20:15 02/09/25 21:10 Temperature 98.5 F 98.7 F Pulse Rate 119 H 135 H 137 H Respiratory Rate 23 H 31 H 22 H Blood Pressure 162/101 H 156/90 H 160/70 H Pulse Oximetry 100 98 97 Oxygen Delivery 02/09/25 22:00 02/09/25 22:27 02/09/25 23:00 Temperature 98.4 F 98.4 F Pulse Rate 129 H 128 H 124 H Respiratory Rate 21 H 101 H Blood Pressure 165/61 H 160/65 H Pulse Oximetry 97 93 Oxygen Delivery 02/09/25 23:40 02/10/25 00:00 02/10/25 02:00 Temperature 98.4 F Pulse Rate 132 H 120 H 120 H Respiratory Rate 20 Blood Pressure 143/58 H Pulse Oximetry 96 Oxygen Delivery 02/10/25 03:59 02/10/25 04:00 02/10/25 04:00 Temperature 97.7 F Pulse Rate 124 H 117 H 117 H Respiratory Rate 20 20 Blood Pressure 123/61 Pulse Oximetry 96 96 Oxygen Delivery Room Air 02/10/25 06:00 02/10/25 08:00 02/10/25 08:00 Temperature Pulse Rate 117 H 109 H Respiratory Rate Blood Pressure Pulse Oximetry Oxygen Delivery Room Air 02/10/25 08:00 02/10/25 08:15 02/10/25 10:00 Temperature 98.4 F Pulse Rate 117 H 134 H 94 Respiratory Rate 16 Blood Pressure 146/73 H Pulse Oximetry 100 Oxygen Delivery 02/10/25 12:00 02/10/25 12:00 02/10/25 12:00 Temperature 98.3 F Pulse Rate 102 H 106 H 103 H Respiratory Rate 12 Blood Pressure 138/61 Pulse Oximetry 99 Oxygen Delivery Room Air 02/10/25 14:00 02/10/25 16:00 02/10/25 16:00 Temperature Pulse Rate 102 H 107 H Respiratory Rate Blood Pressure Pulse Oximetry Oxygen Delivery Room Air 02/10/25 16:00 Temperature 98.3 F Pulse Rate 108 H Respiratory Rate 18 Blood Pressure 154/70 H Pulse Oximetry 100 Oxygen Delivery Intake/Output Intake/Output: Intake & Output 02/07/25 02/08/25 02/09/25 02/10/25 23:59 23:59 23:59 23:59 Intake Total 4540 2062.5 Output Total 800 Balance 4540 1262.5 Meds/Results Medications: Active Medications Generic Name Dose Route Start Last Admin Trade Name Freq PRN Reason Stop Dose Admin Bupropion HCl 300 mg 02/10/25 09:00 02/10/25 08:14 Bupropion Hcl Xl (24 Hr) 150 Mg Tabcr PO 300 mg QAM MARY Administration Duloxetine HCl 60 mg 02/10/25 09:00 02/10/25 08:15 Duloxetine Hcl 60 Mg Capsule.Dr PO 60 mg DAILY MARY Administration Fluticasone Propionate 1 spray 02/10/25 09:00 02/10/25 11:05 Fluticasone Propionate 0.05% Na Spr 16 Gm Btl (*Bkc) NASAL Not Given Q12H MARY Hydromorphone HCl 0.5 mg 02/09/25 20:03 02/10/25 16:37 Hydromorphone Hcl Inj (*Crx) 1 Mg/Ml Syr IV PUSH 0.5 mg Q4H PRN Administration Pain Rated 7-10 Sodium Chloride 1,000 mls @ 150 mls/hr 02/09/25 20:05 02/10/25 11:03 Normal Saline Iv IV CONT 150 mls/hr .[id number] MARY Administration Metronidazole 500 mg in 100 mls @ 100 mls/hr 02/10/25 06:00 02/10/25 15:06 Flagyl 500 Mg/Iso Soln 100 Ml IVPB 100 mls/hr Q8H MARY Administration Ceftriaxone Sodium 1 gm/ 50 mls @ 100 mls/hr 02/10/25 21:00 Sodium Chloride IVPB Q24H MARY Metoprolol Succinate 50 mg 02/10/25 09:00 02/10/25 08:15 Metoprolol Succinate Ext Rel 50 Mg Tabcr PO 50 mg DAILY MARY Administration Ondansetron HCl 4 mg 02/09/25 20:03 02/10/25 11:09 Ondansetron Inj 4 Mg/2 Ml Vial IV PUSH 4 mg Q4H PRN Administration Nausea Pantoprazole Sodium 40 mg 02/10/25 09:00 02/10/25 08:15 Pantoprazole Sodium Iv 40 Mg Vial IV PUSH 40 mg QAM MARY Administration Radiology Results: ITS Impressions Abdomen/Pelvis CT 02/09/25 18:45 IMPRESSION: 1. Significant mucosal and submucosal inflammation of the distal transverse colon, descending colon up to the sigmoid junction are noted suggestive of severe colitis, probably ischemic colitis. Please correlate with clinical and lab results for in shape and ischemic versus infective colitis. 2. No evidence of free fluid. No evidence of free air.. Labs Labs: Laboratory Results - last 24 hr 02/09/25 02/09/25 02/09/25 17:12 17:45 20:51 WBC 25.7 H RBC 5.75 H Hgb 16.5 H D 14.9 Hct 49.8 H 45.0 MCV 86.6 MCH 28.7 MCHC 33.1 RDW 13.8 Plt Count 401 H MPV 10.8 H Immature Gran % (Auto) Not Reportable Neut % (Auto) Not Reportable Lymph % (Auto) Not Reportable Green % (Auto) Not Reportable Eos % (Auto) Not Reportable Baso % (Auto) Not Reportable Lymph # (Auto) Not Reportable Green # (Auto) Not Reportable Eos # (Auto) Not Reportable Baso # (Auto) Not Reportable Abs Immat Gran (auto) Not Reportable Absolute Neuts (auto) Not Reportable Absolute Nucleated RBC Not Reportable Total Counted 100 Neutrophils % (Manual) 86 H Band Neutrophils % 0 Lymphocytes % (Manual) 13 L Monocytes % (Manual) 1 L Eosinophils % (Manual) 0 Basophils % (Manual) 0 Nucleated RBC % Not Reportable Abs Neuts (Manual) 22.10 H Abs Lymphs (Manual) 3.34 Abs Monocytes (Manual) 0.25 Absolute Eos (Manual) 0.00 L Abs Basophils (Manual) 0.00 Platelet Estimate Slightly increased Large Platelets Present Giant Platelets Present Schistocytes None seen PT 13.6 INR 1.0 APTT 25.8 Sodium 140 Potassium 3.9 Chloride 102 Carbon Dioxide 22 Anion Gap 16 H BUN 19 H Creatinine 0.71 Estim Creat Clear Calc Not Reportable Estimated GFR > 60 Glucose 112 H Lactic Acid 1.9 Calcium 9.7 Magnesium Total Bilirubin 1.0 AST 34 ALT 30 Alkaline Phosphatase 91 Total Protein 9.2 H Albumin 4.9 Influenza A (RT-PCR) Negative Influenza B (RT-PCR) Negative RSV (RT-PCR) Negative SARS-CoV-2 RNA (RT-PCR) Negative Blood Type A Positive Antibody Screen Positive Antibody Identification Cancelled Antigen Identification Cancelled LOTTIE, IgG Interpret TNP LOTTIE, Poly Interpret Negative LOTTIE, Complement Interp TNP Enhanced Crossmatch See Detail 02/10/25 02/10/25 02/10/25 02:04 08:27 14:14 WBC 22.4 H RBC 4.80 Hgb 12.5 13.9 12.5 Hct 39.3 43.2 38.3 MCV 90.0 MCH 29.0 MCHC 32.2 RDW 14.1 Plt Count 311 MPV 11.2 H Immature Gran % (Auto) 0.5 Neut % (Auto) 76.9 H Lymph % (Auto) 16.3 L Green % (Auto) 5.9 Eos % (Auto) 0.2 Baso % (Auto) 0.2 Lymph # (Auto) 3.64 H Green # (Auto) 1.3 H Eos # (Auto) 0.0 Baso # (Auto) 0.1 Abs Immat Gran (auto) 0.11 H Absolute Neuts (auto) 17.2 H Absolute Nucleated RBC 0.000 Total Counted Neutrophils % (Manual) Band Neutrophils % Lymphocytes % (Manual) Monocytes % (Manual) Eosinophils % (Manual) Basophils % (Manual) Nucleated RBC % 0.0 Abs Neuts (Manual) Abs Lymphs (Manual) Abs Monocytes (Manual) Absolute Eos (Manual) Abs Basophils (Manual) Platelet Estimate Large Platelets Giant Platelets Schistocytes PT INR APTT Sodium 138 Potassium 3.4 Chloride 109 H Carbon Dioxide 20 L Anion Gap 9 BUN 10 D Creatinine 0.64 L Estim Creat Clear Calc Not Reportable Estimated GFR > 60 Glucose 91 Lactic Acid Calcium 8.3 L Magnesium 1.8 Total Bilirubin AST ALT Alkaline Phosphatase Total Protein Albumin Influenza A (RT-PCR) Influenza B (RT-PCR) RSV (RT-PCR) SARS-CoV-2 RNA (RT-PCR) Blood Type Antibody Screen Antibody Identification Antigen Identification LOTTIE, IgG Interpret LOTTIE, Poly Interpret LOTTIE, Complement Interp Enhanced Crossmatch
[2025-02-10] MEDS: POTASSIUM CHLORIDE 20 MEQ ER TABLET 40 MEQ PO (21:06)
[2025-02-10] MEDS: cefTRIAXone 1 GM in SODIUM CHLORIDE 0.9% IV 50 ML 100 ML IVPB (21:06)
[2025-02-11] VITALS (18 sets, daily range): BP systolic 118–170; BP diastolic 68–76; PULSE 103–118; RESP 14–20; TEMP 36.7–36.9; O2SAT 97–100
[2025-02-11] MEDS: SODIUM CHLORIDE 0.9% IV 1,000 ML 150 ML IV CONT ×3 (03:25→18:55)
[2025-02-11 04:25] LABS: Hematocrit 38.9 % (37.0-47.0); Hemoglobin 12.7 g/dL (12.0-15.0); Immature Granulocyte Percent A 0.6 % (0-0.5); Lymphocytes Absolute Auto 2.63 K/mm3 (0.9-3.2); Mean Corpuscular HGB Conc 32.6 g/dl (32-36); Mean Corpuscular Hemoglobin 29.3 pg (26-34); Mean Corpuscular Volume 89.6 fl (80-100); Nucleated Red Blood Cells Absolute Auto 0.000 K/mm3 (0.0-0.012); Nucleated Red Blood Cells Perc 0.0 % (0.0-0.2); Platelet Count Result 225 k/mm3 (150-375); Red Blood Count 4.34 M/mm3 (4.2-5.4); White Blood Count 17.6 K/mm3 (4.5-10.0)
[2025-02-11 04:50] LABS: Alanine Aminotransferase 11 U/L (6-35); Albumin Level 3.4 g/dL (3.5-5.1); Alkaline Phosphatase 76 U/L (38-126); Anion Gap 9 mmol/L (4-12); Aspartate Amino Transferase 22 U/L (14-36); Bilirubin,Total 0.6 mg/dL (0.2-1.3); Blood Urea Nitrogen 3 mg/dL (7-17); Calcium 8.3 mg/dL (8.4-10.2); Carbon Dioxide 21 mmol/L (22-30); Chloride 107 mmol/L (98-107); Estimated Glomerular Filt Rate > 60; Glucose 78 mg/dL (65-110); Magnesium 1.6 mg/dL (1.6-2.3); Potassium 3.5 mmol/L (3.4-5.0); Sodium 137 mmol/L (137-145); Total Protein 6.4 g/dL (6.3-8.2)
[2025-02-11] MEDS: metroNIDAZOLE 500 MG/ISO 100ML 500 MG/100 ML BAG 100 MG IVPB ×3 (05:44→21:35)
[2025-02-11] MEDS: DULoxetine HCL 60 MG CAPSULE.DR PO (08:29)
[2025-02-11] MEDS: METOPROLOL SUCCINATE EXT REL 50 MG TABCR PO (08:29)
[2025-02-11] MEDS: buPROPion HCL XL (24 HR) 150 MG TABCR 300 MG PO (08:29)
[2025-02-11] MEDS: PANTOPRAZOLE SODIUM IV 40 MG VIAL IV PUSH (08:30)
[2025-02-11] MEDS: HYDROmorphone HCL INJ (*CRX) 1 MG/ML SYR 0.5 MG IV PUSH ×2 (10:13→15:40)
[2025-02-11] MEDS: ONDANSETRON INJ 4 MG/2 ML VIAL IV PUSH ×2 (10:18→15:40)
[2025-02-11] MEDS: SIMETHICONE 80 MG TAB.CHEW PO (13:16)
--- NOTE | 2025-02-11 14:59 | P.PNGS_ITS ---
Progress Note: A&P Assessment and Plan (1) Colitis: Code(s): K52.9 - Noninfective gastroenteritis and colitis, unspecified Status: Acute Assessment and Plan: exam benign now, labs improved, cont IV abx and supportive care, cont full liquids for now Subjective Subjective Date/Time Seen: 02/11/25 14:59 Interval history: increased pain this am but improved now c pain meds Review of Systems Review of Systems: All systems reviewed & are unremarkable except as noted in HPI and below Exam Const: General: cooperative, comfortable and no acute distress Resp: Auscultation: clear to auscultation bilaterally Cardio: Rate: tachycardic Rhythm: regular rhythm GI: Inspection: normal to inspection and non-distended GI Palp: Yes abdominal tenderness, Yes Soft to palpation, Yes Tenderness to palpation present (GI), No Guarding due to palpation present (GI) and No Rigid due to palpation Objective Data Vital Signs Vital Signs: Vital Signs - 24 hr 02/10/25 16:00 02/10/25 16:00 02/10/25 16:00 Temperature 36.8 C Pulse Rate 107 H 108 H Respiratory Rate 18 Blood Pressure 154/70 H Pulse Oximetry 100 Oxygen Delivery Room Air 02/10/25 18:00 02/10/25 19:46 02/10/25 20:00 Temperature 37.0 C Pulse Rate 105 H 111 H 112 H Respiratory Rate 16 16 Blood Pressure 153/70 H Pulse Oximetry 97 97 Oxygen Delivery Room Air 02/10/25 20:00 02/10/25 21:36 02/10/25 23:25 Temperature 36.7 C Pulse Rate 112 H 111 H 112 H Respiratory Rate 16 Blood Pressure 151/68 H Pulse Oximetry 97 Oxygen Delivery 02/11/25 00:00 02/11/25 00:00 02/11/25 02:00 Temperature Pulse Rate 106 H 106 H 114 H Respiratory Rate 16 Blood Pressure Pulse Oximetry 97 Oxygen Delivery Room Air 02/11/25 03:30 02/11/25 03:30 02/11/25 04:14 Temperature 36.9 C Pulse Rate 111 H 111 H 115 H Respiratory Rate 16 14 Blood Pressure 151/71 H Pulse Oximetry 97 98 Oxygen Delivery Room Air 02/11/25 05:52 02/11/25 07:20 02/11/25 08:00 Temperature 36.8 C Pulse Rate 105 H 115 H 109 H Respiratory Rate 16 Blood Pressure 118/68 Pulse Oximetry 97 Oxygen Delivery 02/11/25 08:29 02/11/25 10:00 02/11/25 11:00 Temperature 36.8 C Pulse Rate 118 H 107 H 103 H Respiratory Rate 20 Blood Pressure 170/76 H Pulse Oximetry 97 Oxygen Delivery 02/11/25 11:58 02/11/25 12:00 02/11/25 14:00 Temperature Pulse Rate 103 H 105 H Respiratory Rate Blood Pressure Pulse Oximetry Oxygen Delivery Room Air Intake/Output Intake/Output: Intake & Output 02/08/25 02/09/25 02/10/25 02/11/25 23:59 23:59 23:59 23:59 Intake Total 4540 3562.5 2835 Output Total 3800 1900 Balance 4540 -237.5 935 Meds/Results Medications: Active Medications Generic Name Dose Route Start Last Admin Trade Name Freq PRN Reason Stop Dose Admin Bupropion HCl 300 mg 02/10/25 09:00 02/11/25 08:29 Bupropion Hcl Xl (24 Hr) 150 Mg Tabcr PO 300 mg QAM MARY Administration Duloxetine HCl 60 mg 02/10/25 09:00 02/11/25 08:29 Duloxetine Hcl 60 Mg Capsule.Dr PO 60 mg DAILY MARY Administration Fluticasone Propionate 1 spray 02/10/25 09:00 02/11/25 08:30 Fluticasone Propionate 0.05% Na Spr 16 Gm Btl (*Bkc) NASAL Not Given Q12H MARY Hydromorphone HCl 0.5 mg 02/09/25 20:03 02/11/25 10:13 Hydromorphone Hcl Inj (*Crx) 1 Mg/Ml Syr IV PUSH 0.5 mg Q4H PRN Administration Pain Rated 7-10 Sodium Chloride 1,000 mls @ 150 mls/hr 02/09/25 20:05 02/11/25 12:46 Normal Saline Iv IV CONT 150 mls/hr .Q6H40M MARY Infusion Metronidazole 500 mg in 100 mls @ 100 mls/hr 02/10/25 06:00 02/11/25 13:16 Flagyl 500 Mg/Iso Soln 100 Ml IVPB 100 mls/hr Q8H MARY Administration Ceftriaxone Sodium 1 gm/ 50 mls @ 100 mls/hr 02/10/25 21:00 02/10/25 21:35 Sodium Chloride IVPB Infused Q24H MARY Infusion Lisinopril 10 mg 02/11/25 12:24 02/11/25 12:49 Lisinopril 10 Mg Tablet PO 10 mg DAILY MARY Administration Metoprolol Succinate 50 mg 02/10/25 09:00 02/11/25 08:29 Metoprolol Succinate Ext Rel 50 Mg Tabcr PO 50 mg DAILY MARY Administration Ondansetron HCl 4 mg 02/09/25 20:03 02/11/25 10:18 Ondansetron Inj 4 Mg/2 Ml Vial IV PUSH 4 mg Q4H PRN Administration Nausea Pantoprazole Sodium 40 mg 02/10/25 09:00 02/11/25 08:30 Pantoprazole Sodium Iv 40 Mg Vial IV PUSH 40 mg QAM MARY Administration Simethicone 80 mg 02/11/25 13:02 02/11/25 13:16 Simethicone 80 Mg Tab.Chew PO 80 mg QID PRN Administration Abdominal Cramping Radiology Results: ITS Impressions Abdomen/Pelvis CT 02/09/25 18:45 IMPRESSION: 1. Significant mucosal and submucosal inflammation of the distal transverse colon, descending colon up to the sigmoid junction are noted suggestive of severe colitis, probably ischemic colitis. Please correlate with clinical and lab results for in shape and ischemic versus infective colitis. 2. No evidence of free fluid. No evidence of free air.. Labs Labs: Laboratory Results - last 24 hr 02/09/25 02/09/25 02/09/25 17:12 17:12 17:12 WBC RBC Hgb Hct MCV MCH MCHC RDW Plt Count MPV Immature Gran % (Auto) Neut % (Auto) Lymph % (Auto) [place] % (Auto) Eos % (Auto) Baso % (Auto) Lymph # (Auto) [place] # (Auto) Eos # (Auto) Baso # (Auto) Abs Immat Gran (auto) Absolute Neuts (auto) Absolute Nucleated RBC Nucleated RBC % Sodium Potassium Chloride Carbon Dioxide Anion Gap BUN Creatinine Estim Creat Clear Calc Estimated GFR Glucose Calcium Magnesium Total Bilirubin AST ALT Alkaline Phosphatase Total Protein Albumin Blood Type A Positive Antibody Screen Positive Antibody Identification Anti-N Antigen Identification s Antigen - POSITIVE N Antigen - NEGATIVE S Antigen - NEGATIVE LOTTIE, IgG Interpret TNP LOTTIE, Poly Interpret Negative LOTTIE, Complement Interp TNP Enhanced Crossmatch See Detail 02/11/25 04:00 WBC 17.6 H RBC 4.34 Hgb 12.7 Hct 38.9 MCV 89.6 MCH 29.3 MCHC 32.6 RDW 13.9 Plt Count 225 MPV 11.2 H Immature Gran % (Auto) 0.6 H Neut % (Auto) 77.0 H Lymph % (Auto) 15.0 L [place] % (Auto) 5.5 Eos % (Auto) 1.4 Baso % (Auto) 0.5 Lymph # (Auto) 2.63 [place] # (Auto) 1.0 H Eos # (Auto) 0.3 Baso # (Auto) 0.1 Abs Immat Gran (auto) 0.11 H Absolute Neuts (auto) 13.6 H Absolute Nucleated RBC 0.000 Nucleated RBC % 0.0 Sodium 137 Potassium 3.5 Chloride 107 Carbon Dioxide 21 L Anion Gap 9 BUN 3 L D Creatinine 0.53 L Estim Creat Clear Calc Not Reportable Estimated GFR > 60 Glucose 78 Calcium 8.3 L Magnesium 1.6 Total Bilirubin 0.6 AST 22 ALT 11 Alkaline Phosphatase 76 Total Protein 6.4 Albumin 3.4 L Blood Type Antibody Screen Antibody Identification Antigen Identification LOTTIE, IgG Interpret LOTTIE, Poly Interpret LOTTIE, Complement Interp Enhanced Crossmatch
--- NOTE | 2025-02-11 17:06 | WPDGIPROGNO ---
Progress Note: A&P Assessment and Plan (1) Colitis: Code(s): K52.9 - Noninfective gastroenteritis and colitis, unspecified Status: Acute Assessment and Plan: probably ischemic colitis wbc trending down continue medical therapy s/p fluids and abx (2) Acute lower GI hemorrhage: Code(s): K92.2 - Gastrointestinal hemorrhage, unspecified Status: Acute Assessment and Plan: from colitis (3) Nausea and vomiting in adult: Code(s): R11.2 - Nausea with vomiting, unspecified Status: Acute Assessment and Plan: liquid diet for now (4) Severe dehydration: Code(s): E86.0 - Dehydration Status: Acute Assessment and Plan: treated (5) Lower abdominal pain: Code(s): R10.30 - Lower abdominal pain, unspecified Status: Acute Subjective Date/time seen: 02/11/25 17:06 Interval history: still with lower abdominal pain and bloody stool Review of Systems Review of Systems: All systems reviewed & are unremarkable except as noted in HPI and below Exam Const: General: cooperative and no acute distress Other: still with abd pain HENMT: Face/Nose/Sinus: Normal nares present Eyes: General: appearance normal, both eyes and all related structures Neck: Neck: supple Resp: Auscultation: clear to auscultation bilaterally Cardio: Rhythm: regular rhythm GI: Inspection: normal to inspection and non-distended GI Palp: Yes abdominal tenderness, Yes Soft to palpation, Yes Tenderness to palpation present (GI), No Guarding due to palpation present (GI) and No Rigid due to palpation Skin: General skin exam: normal color Neuro: Speech: normal speech Motor exam (neuro): 5/5 motor strength present throughout Extrem: General: normal to inspection Psych: Attitude: not belligerent Objective Data Vital Signs Vital Signs: Vital Signs - 24 hr 02/10/25 18:00 02/10/25 19:46 02/10/25 20:00 Temperature 98.6 F Pulse Rate 105 H 111 H 112 H Respiratory Rate 16 16 Blood Pressure 153/70 H Pulse Oximetry 97 97 Oxygen Delivery Room Air 02/10/25 20:00 02/10/25 21:36 02/10/25 23:25 Temperature 98.0 F Pulse Rate 112 H 111 H 112 H Respiratory Rate 16 Blood Pressure 151/68 H Pulse Oximetry 97 Oxygen Delivery 02/11/25 00:00 02/11/25 00:00 02/11/25 02:00 Temperature Pulse Rate 106 H 106 H 114 H Respiratory Rate 16 Blood Pressure Pulse Oximetry 97 Oxygen Delivery Room Air 02/11/25 03:30 02/11/25 03:30 02/11/25 04:14 Temperature 98.4 F Pulse Rate 111 H 111 H 115 H Respiratory Rate 16 14 Blood Pressure 151/71 H Pulse Oximetry 97 98 Oxygen Delivery Room Air 02/11/25 05:52 02/11/25 07:20 02/11/25 08:00 Temperature 98.2 F Pulse Rate 105 H 115 H 109 H Respiratory Rate 16 Blood Pressure 118/68 Pulse Oximetry 97 Oxygen Delivery 02/11/25 08:29 02/11/25 10:00 02/11/25 11:00 Temperature 98.3 F Pulse Rate 118 H 107 H 103 H Respiratory Rate 20 Blood Pressure 170/76 H Pulse Oximetry 97 Oxygen Delivery 02/11/25 11:58 02/11/25 12:00 02/11/25 14:00 Temperature Pulse Rate 103 H 105 H Respiratory Rate Blood Pressure Pulse Oximetry Oxygen Delivery Room Air 02/11/25 15:32 02/11/25 16:00 Temperature 98.1 F Pulse Rate 116 H Respiratory Rate 18 Blood Pressure 164/68 H Pulse Oximetry 100 Oxygen Delivery Room Air Intake/Output Intake/Output: Intake & Output 02/08/25 02/09/25 02/10/25 02/11/25 23:59 23:59 23:59 23:59 Intake Total 4540 3562.5 2835 Output Total 3800 2950 Balance 4540 -237.5 -115 Meds/Results Medications: Active Medications Generic Name Dose Route Start Last Admin Trade Name Freq PRN Reason Stop Dose Admin Bupropion HCl 300 mg 02/10/25 09:00 02/11/25 08:29 Bupropion Hcl Xl (24 Hr) 150 Mg Tabcr PO 300 mg QAM MARY Administration Duloxetine HCl 60 mg 02/10/25 09:00 02/11/25 08:29 Duloxetine Hcl 60 Mg Capsule.Dr PO 60 mg DAILY MARY Administration Fluticasone Propionate 1 spray 02/10/25 09:00 02/11/25 08:30 Fluticasone Propionate 0.05% Na Spr 16 Gm Btl (*Bkc) NASAL Not Given Q12H MARY Hydromorphone HCl 0.5 mg 02/09/25 20:03 02/11/25 15:40 Hydromorphone Hcl Inj (*Crx) 1 Mg/Ml Syr IV PUSH 0.5 mg Q4H PRN Administration Pain Rated 7-10 Sodium Chloride 1,000 mls @ 150 mls/hr 02/09/25 20:05 02/11/25 12:46 Normal Saline Iv IV CONT 150 mls/hr .Q6H40M MARY Infusion Metronidazole 500 mg in 100 mls @ 100 mls/hr 02/10/25 06:00 02/11/25 13:16 Flagyl 500 Mg/Iso Soln 100 Ml IVPB 100 mls/hr Q8H MARY Administration Ceftriaxone Sodium 1 gm/ 50 mls @ 100 mls/hr 02/10/25 21:00 02/10/25 21:35 Sodium Chloride IVPB Infused Q24H MARY Infusion Lisinopril 10 mg 02/11/25 12:24 02/11/25 12:49 Lisinopril 10 Mg Tablet PO 10 mg DAILY MARY Administration Metoprolol Succinate 50 mg 02/10/25 09:00 02/11/25 08:29 Metoprolol Succinate Ext Rel 50 Mg Tabcr PO 50 mg DAILY MARY Administration Ondansetron HCl 4 mg 02/09/25 20:03 02/11/25 15:40 Ondansetron Inj 4 Mg/2 Ml Vial IV PUSH 4 mg Q4H PRN Administration Nausea Pantoprazole Sodium 40 mg 02/10/25 09:00 02/11/25 08:30 Pantoprazole Sodium Iv 40 Mg Vial IV PUSH 40 mg QAM MARY Administration Simethicone 80 mg 02/11/25 13:02 02/11/25 13:16 Simethicone 80 Mg Tab.Chew PO 80 mg QID PRN Administration Abdominal Cramping Radiology Results: ITS Impressions Abdomen/Pelvis CT 02/09/25 18:45 IMPRESSION: 1. Significant mucosal and submucosal inflammation of the distal transverse colon, descending colon up to the sigmoid junction are noted suggestive of severe colitis, probably ischemic colitis. Please correlate with clinical and lab results for in shape and ischemic versus infective colitis. 2. No evidence of free fluid. No evidence of free air.. Labs Labs: Laboratory Results - last 24 hr 02/09/25 02/09/2525 17:12 17:12 17:12 WBC RBC Hgb Hct MCV MCH MCHC RDW Plt Count MPV Immature Gran % (Auto) Neut % (Auto) Lymph % (Auto) [place] % (Auto) Eos % (Auto) Baso % (Auto) Lymph # (Auto) [place] # (Auto) Eos # (Auto) Baso # (Auto) Abs Immat Gran (auto) Absolute Neuts (auto) Absolute Nucleated RBC Nucleated RBC % Sodium Potassium Chloride Carbon Dioxide Anion Gap BUN Creatinine Estim Creat Clear Calc Estimated GFR Glucose Calcium Magnesium Total Bilirubin AST ALT Alkaline Phosphatase Total Protein Albumin Blood Type A Positive Antibody Screen Positive Antibody Identification Anti-N Antigen Identification s Antigen - POSITIVE N Antigen - NEGATIVE S Antigen - NEGATIVE LOTTIE, IgG Interpret TNP LOTTIE, Poly Interpret Negative LOTTIE, Complement Interp TNP Enhanced Crossmatch See Detail 02/11/25 04:00 WBC 17.6 H RBC 4.34 Hgb 12.7 Hct 38.9 MCV 89.6 MCH 29.3 MCHC 32.6 RDW 13.9 Plt Count 225 MPV 11.2 H Immature Gran % (Auto) 0.6 H Neut % (Auto) 77.0 H Lymph % (Auto) 15.0 L [place] % (Auto) 5.5 Eos % (Auto) 1.4 Baso % (Auto) 0.5 Lymph # (Auto) 2.63 [place] # (Auto) 1.0 H Eos # (Auto) 0.3 Baso # (Auto) 0.1 Abs Immat Gran (auto) 0.11 H Absolute Neuts (auto) 13.6 H Absolute Nucleated RBC 0.000 Nucleated RBC % 0.0 Sodium 137 Potassium 3.5 Chloride 107 Carbon Dioxide 21 L Anion Gap 9 BUN 3 L D Creatinine 0.53 L Estim Creat Clear Calc Not Reportable Estimated GFR > 60 Glucose 78 Calcium 8.3 L Magnesium 1.6 Total Bilirubin 0.6 AST 22 ALT 11 Alkaline Phosphatase 76 Total Protein 6.4 Albumin 3.4 L Blood Type Antibody Screen Antibody Identification Antigen Identification LOTTIE, IgG Interpret LOTTIE, Poly Interpret LOTTIE, Complement Interp Enhanced Crossmatch
--- NOTE | 2025-02-11 17:27 | P.PNIM_ITS ---
Assessment and Plan Assessment and Plan (1) Colitis: Code(s): K52.9 - Noninfective gastroenteritis and colitis, unspecified Status: Acute Assessment and Plan: The patient presents with abdominal pain and rectal bleeding and found to have sepsis with tachycardia, leukocytosis related to colitis. Patient had prior normal screening colonoscopy in 2020. She received fluid bolus in ED CT Abd/Pelvis showing acute colitis suggestive of ischemia rather than infection but the patient's clinical picture is more consistent with acute infectious colitis and patient without evidence of significant atherosclerosis on imaging or risk factors. Lactic acidosis normal BCx collected and started on IV fluids and Rocephin/Flagyl per antibiotics stewardship guidelines. BCx pending Stool culture and C diff testing ordered GI ans GenSurg consulted and appreciate their input. HH stable. Monitor HH. Monitor stool output. (2) Sepsis: Qualifiers: Sepsis acute organ dysfunction status: without acute organ dysfunction Sepsis type: sepsis due to unspecified organism Qualified Code(s): A41.9 - Sepsis, unspecified organism Code(s): A41.9 - Sepsis, unspecified organism Status: Acute Assessment and Plan: As above (3) Acute lower GI hemorrhage: Code(s): K92.2 - Gastrointestinal hemorrhage, unspecified Status: Acute Assessment and Plan: As above (4) Severe dehydration: Code(s): E86.0 - Dehydration Status: Acute Assessment and Plan: Started IV fluids. Continue the same. Plan DVT Prophylaxis - SCDs Code status - Full Subjective Date/time seen: 02/11/25 17:27 Interval history: 59yo female with obesity, depression, LAY, HTN and allergic rhinitis who presented to the ER with abdominal pain and bloody stools. Still with crampy abd pain but better overall. Decrease in the amount of rectal bleeding. Feels nauseous and bloated. Exam Narrative: AF 98.1 164/68 116 18 100% ra Gen - NARD Chest - CTA bilaterally, nml RR CV -tachycardic but regular. Telemetry showing sinus tachycardia Abd - Soft, ND, +BS. Mild referred pain and ?rebound. Ext - No pedal edema Psych - Nml mood and affect Skin - Warm and dry Objective Data Vital Signs Vital Signs: Vital Signs - 24 hr 02/10/25 18:00 02/10/25 19:46 02/10/25 20:00 Temperature 98.6 F Pulse Rate 105 H 111 H 112 H Respiratory Rate 16 16 Blood Pressure 153/70 H Pulse Oximetry 97 97 Oxygen Delivery Room Air 02/10/25 20:00 02/10/25 21:36 02/10/25 23:25 Temperature 98.0 F Pulse Rate 112 H 111 H 112 H Respiratory Rate 16 Blood Pressure 151/68 H Pulse Oximetry 97 Oxygen Delivery 02/11/25 00:00 02/11/25 00:00 02/11/25 02:00 Temperature Pulse Rate 106 H 106 H 114 H Respiratory Rate 16 Blood Pressure Pulse Oximetry 97 Oxygen Delivery Room Air 02/11/25 03:30 02/11/25 03:30 02/11/25 04:14 Temperature 98.4 F Pulse Rate 111 H 111 H 115 H Respiratory Rate 16 14 Blood Pressure 151/71 H Pulse Oximetry 97 98 Oxygen Delivery Room Air 02/11/25 05:52 02/11/25 07:20 02/11/25 08:00 Temperature 98.2 F Pulse Rate 105 H 115 H 109 H Respiratory Rate 16 Blood Pressure 118/68 Pulse Oximetry 97 Oxygen Delivery 02/11/25 08:29 02/11/25 10:00 02/11/25 11:00 Temperature 98.3 F Pulse Rate 118 H 107 H 103 H Respiratory Rate 20 Blood Pressure 170/76 H Pulse Oximetry 97 Oxygen Delivery 02/11/25 11:58 02/11/25 12:00 02/11/25 14:00 Temperature Pulse Rate 103 H 105 H Respiratory Rate Blood Pressure Pulse Oximetry Oxygen Delivery Room Air 02/11/25 15:32 02/11/25 16:00 Temperature 98.1 F Pulse Rate 116 H Respiratory Rate 18 Blood Pressure 164/68 H Pulse Oximetry 100 Oxygen Delivery Room Air Intake/Output Intake/Output: Intake & Output 02/08/25 02/09/25 02/10/25 02/11/25 23:59 23:59 23:59 23:59 Intake Total 4540 3562.5 2835 Output Total 3800 2950 Balance 4540 -237.5 -115 Meds/Results Medications: Active Medications Generic Name Dose Route Start Last Admin Trade Name Freq PRN Reason Stop Dose Admin Bupropion HCl 300 mg 02/10/25 09:00 02/11/25 08:29 Bupropion Hcl Xl (24 Hr) 150 Mg Tabcr PO 300 mg QAM MARY Administration Duloxetine HCl 60 mg 02/10/25 09:00 02/11/25 08:29 Duloxetine Hcl 60 Mg Capsule.Dr PO 60 mg DAILY MARY Administration Fluticasone Propionate 1 spray 02/10/25 09:00 02/11/25 08:30 Fluticasone Propionate 0.05% Na Spr 16 Gm Btl (*Bkc) NASAL Not Given Q12H MARY Hydromorphone HCl 0.5 mg 02/09/25 20:03 02/11/25 15:40 Hydromorphone Hcl Inj (*Crx) 1 Mg/Ml Syr IV PUSH 0.5 mg Q4H PRN Administration Pain Rated 7-10 Sodium Chloride 1,000 mls @ 150 mls/hr 02/09/25 20:05 02/11/25 12:46 Normal Saline Iv IV CONT 150 mls/hr .Q6H40M MARY Infusion Metronidazole 500 mg in 100 mls @ 100 mls/hr 02/10/25 06:00 02/11/25 13:16 Flagyl 500 Mg/Iso Soln 100 Ml IVPB 100 mls/hr Q8H MARY Administration Ceftriaxone Sodium 1 gm/ 50 mls @ 100 mls/hr 02/10/25 21:00 02/10/25 21:35 Sodium Chloride IVPB Infused Q24H MARY Infusion Lisinopril 10 mg 02/11/25 12:24 02/11/25 12:49 Lisinopril 10 Mg Tablet PO 10 mg DAILY MARY Administration Metoprolol Succinate 50 mg 02/10/25 09:00 02/11/25 08:29 Metoprolol Succinate Ext Rel 50 Mg Tabcr PO 50 mg DAILY MARY Administration Ondansetron HCl 4 mg 02/09/25 20:03 02/11/25 15:40 Ondansetron Inj 4 Mg/2 Ml Vial IV PUSH 4 mg Q4H PRN Administration Nausea Pantoprazole Sodium 40 mg 02/10/25 09:00 02/11/25 08:30 Pantoprazole Sodium Iv 40 Mg Vial IV PUSH 40 mg QAM MARY Administration Simethicone 80 mg 02/11/25 13:02 02/11/25 13:16 Simethicone 80 Mg Tab.Chew PO 80 mg QID PRN Administration Abdominal Cramping Radiology Results: ITS Impressions Abdomen/Pelvis CT 02/09/25 18:45 IMPRESSION: 1. Significant mucosal and submucosal inflammation of the distal transverse colon, descending colon up to the sigmoid junction are noted suggestive of severe colitis, probably ischemic colitis. Please correlate with clinical and lab results for in shape and ischemic versus infective colitis. 2. No evidence of free fluid. No evidence of free air.. Labs Labs: Laboratory Results - last 24 hr 02/09/25 02/09/25 02/09/25 17:12 17:12 17:12 WBC RBC Hgb Hct MCV MCH MCHC RDW Plt Count MPV Immature Gran % (Auto) Neut % (Auto) Lymph % (Auto) [place] % (Auto) Eos % (Auto) Baso % (Auto) Lymph # (Auto) [place] # (Auto) Eos # (Auto) Baso # (Auto) Abs Immat Gran (auto) Absolute Neuts (auto) Absolute Nucleated RBC Nucleated RBC % Sodium Potassium Chloride Carbon Dioxide Anion Gap BUN Creatinine Estim Creat Clear Calc Estimated GFR Glucose Calcium Magnesium Total Bilirubin AST ALT Alkaline Phosphatase Total Protein Albumin Blood Type A Positive Antibody Screen Positive Antibody Identification Anti-N Antigen Identification s Antigen - POSITIVE N Antigen - NEGATIVE S Antigen - NEGATIVE LOTTIE, IgG Interpret TNP LOTTIE, Poly Interpret Negative LOTTIE, Complement Interp TNP Enhanced Crossmatch See Detail 02/11/25 04:00 WBC 17.6 H RBC 4.34 Hgb 12.7 Hct 38.9 MCV 89.6 MCH 29.3 MCHC 32.6 RDW 13.9 Plt Count 225 MPV 11.2 H Immature Gran % (Auto) 0.6 H Neut % (Auto) 77.0 H Lymph % (Auto) 15.0 L [place] % (Auto) 5.5 Eos % (Auto) 1.4 Baso % (Auto) 0.5 Lymph # (Auto) 2.63 [place] # (Auto) 1.0 H Eos # (Auto) 0.3 Baso # (Auto) 0.1 Abs Immat Gran (auto) 0.11 H Absolute Neuts (auto) 13.6 H Absolute Nucleated RBC 0.000 Nucleated RBC % 0.0 Sodium 137 Potassium 3.5 Chloride 107 Carbon Dioxide 21 L Anion Gap 9 BUN 3 L D Creatinine 0.53 L Estim Creat Clear Calc Not Reportable Estimated GFR > 60 Glucose 78 Calcium 8.3 L Magnesium 1.6 Total Bilirubin 0.6 AST 22 ALT 11 Alkaline Phosphatase 76 Total Protein 6.4 Albumin 3.4 L Blood Type Antibody Screen Antibody Identification Antigen Identification LOTTIE, IgG Interpret LOTTIE, Poly Interpret LOTTIE, Complement Interp Enhanced Crossmatch
[2025-02-11] MEDS: ACETAMINOPHEN 325 MG TABLET 650 MG PO (19:03)
[2025-02-11] MEDS: cefTRIAXone 1 GM in SODIUM CHLORIDE 0.9% IV 50 ML 100 ML IVPB (20:31)
[2025-02-11] MEDS: FLUTICASONE PROPIONATE 0.05% NA SPR 16 GM BTL (*BKC) 1 SPRAY NASAL (20:35)
[2025-02-12] VITALS (18 sets, daily range): BP systolic 114–164; BP diastolic 44–82; PULSE 103–134; RESP 14–24; TEMP 36.6–36.8; O2SAT 96–100
[2025-02-12] MEDS: SODIUM CHLORIDE 0.9% IV 1,000 ML 150 ML IV CONT ×2 (04:10→11:40)
[2025-02-12] MEDS: HYDROmorphone HCL INJ (*CRX) 1 MG/ML SYR IV PUSH (04:21)
[2025-02-12 04:31] LABS: Hematocrit 40.0 % (37.0-47.0); Hemoglobin 13.1 g/dL (12.0-15.0); Mean Corpuscular HGB Conc 32.8 g/dl (32-36); Mean Corpuscular Hemoglobin 29.3 pg (26-34); Mean Corpuscular Volume 89.5 fl (80-100); Platelet Count Result 213 k/mm3 (150-375); Red Blood Count 4.47 M/mm3 (4.2-5.4); White Blood Count 20.9 K/mm3 (4.5-10.0)
[2025-02-12 04:56] LABS: Anion Gap 12 mmol/L (4-12); Blood Urea Nitrogen 3 mg/dL (7-17); Calcium 8.1 mg/dL (8.4-10.2); Carbon Dioxide 21 mmol/L (22-30); Chloride 105 mmol/L (98-107); Estimated Glomerular Filt Rate > 60; Glucose 84 mg/dL (65-110); Potassium 3.0 mmol/L (3.4-5.0); Sodium 138 mmol/L (137-145)
[2025-02-12 05:13] LABS: Toxigenic C. Diff NEGATIVE (NEGATIVE)
[2025-02-12] MEDS: metroNIDAZOLE 500 MG/ISO 100ML 500 MG/100 ML BAG 100 MG IVPB ×2 (05:34→21:00)
[2025-02-12 08:49] LABS: Magnesium 1.5 mg/dL (1.6-2.3)
[2025-02-12] MEDS: buPROPion HCL XL (24 HR) 150 MG TABCR 300 MG PO (08:57)
[2025-02-12] MEDS: METOPROLOL SUCCINATE EXT REL 50 MG TABCR PO (08:57)
[2025-02-12] MEDS: POTASSIUM CHLORIDE 20 MEQ ER TABLET 40 MEQ PO (08:57)
[2025-02-12] MEDS: DULoxetine HCL 60 MG CAPSULE.DR PO (08:57)
[2025-02-12] MEDS: PANTOPRAZOLE SODIUM IV 40 MG VIAL IV PUSH (08:57)
[2025-02-12] MEDS: FLUTICASONE PROPIONATE 0.05% NA SPR 16 GM BTL (*BKC) 1 SPRAY NASAL ×2 (11:59→21:05)
--- NOTE | 2025-02-12 12:46 | P.PNGS_ITS ---
Progress Note: A&P Assessment and Plan (1) Colitis: Code(s): K52.9 - Noninfective gastroenteritis and colitis, unspecified Status: Acute Assessment and Plan: * Patient feeling well today. Still has some lower abdominal pain. No nausea or vomiting with full liquids. Will consider advancing diet. States that she has only had a small amount of blood with bowel movements. * WBC did increase to 20,000 today. H/H stable. Continue IV antibiotics. * GI on board. Patient will likely need colonoscopy in 4-6 weeks after resolution of current colitis episode. Plan Discussed patient's case and plan of care with Dr. Cespedes. Subjective Subjective Date/Time Seen: 02/12/25 12:46 Patient reports: no new complaints, feels better, tolerating liquids well, bowel movement and afebrile Interval history: Patient doing well today. Had a few bowel movements overnight that contained minimal amount of blood. tolerating full liquids without nausea or vomiting. WBC did increase from 17.6 to 20.9 today. Afebrile, but still tachy. Respiratory rate 24 today. Exam Const: General: comfortable and no acute distress GI: Inspection: non-distended GI Palp: Yes Soft to palpation and Yes Tenderness to palpation present (GI) (lower abdomen) Auscultation: normal bowel sounds Objective Data Vital Signs Vital Signs: Vital Signs - 24 hr 02/11/25 14:00 02/11/25 15:32 02/11/25 16:00 Temperature 98.1 F Pulse Rate 105 H 116 H Respiratory Rate 18 Blood Pressure 164/68 H Pulse Oximetry 100 Oxygen Delivery Room Air 02/11/25 16:00 02/11/25 18:00 02/11/25 18:56 Temperature 98.2 F Pulse Rate 109 H 111 H 115 H Respiratory Rate 16 Blood Pressure 138/70 Pulse Oximetry 97 Oxygen Delivery 02/11/25 20:00 02/11/25 20:00 02/11/25 22:00 Temperature Pulse Rate 109 H 110 H Respiratory Rate Blood Pressure Pulse Oximetry Oxygen Delivery Room Air 02/12/25 00:00 02/12/25 00:00 02/12/25 00:00 Temperature 98.3 F Pulse Rate 103 H 106 H Respiratory Rate 18 Blood Pressure 161/69 H Pulse Oximetry 96 Oxygen Delivery Room Air 02/12/25 02:18 02/12/25 04:00 02/12/25 04:00 Temperature Pulse Rate 107 H 109 H Respiratory Rate Blood Pressure Pulse Oximetry Oxygen Delivery Room Air 02/12/25 04:00 02/12/25 06:15 02/12/25 07:36 Temperature 98.1 F 98.1 F Pulse Rate 116 H 116 H 117 H Respiratory Rate 14 20 Blood Pressure 138/70 150/68 H Pulse Oximetry 98 96 Oxygen Delivery 02/12/25 08:00 02/12/25 08:00 02/12/25 08:57 Temperature Pulse Rate 112 H 112 H 117 H Respiratory Rate 20 Blood Pressure Pulse Oximetry 96 Oxygen Delivery Room Air 02/12/25 11:00 02/12/25 11:30 02/12/25 12:00 Temperature 97.8 F Pulse Rate 134 H 110 H 119 H Respiratory Rate 24 H Blood Pressure 152/60 H Pulse Oximetry 100 Oxygen Delivery 02/12/25 12:00 Temperature Pulse Rate 119 H Respiratory Rate 24 H Blood Pressure Pulse Oximetry 100 Oxygen Delivery Room Air Intake/Output Intake/Output: Intake & Output 02/09/25 02/10/25 02/11/25 02/12/25 23:59 23:59 23:59 23:59 Intake Total 4540 3562.5 4110 2515 Output Total 3800 3190 1100 Balance 4540 -237.5 920 1415 Meds/Results Medications: Active Medications Generic Name Dose Route Start Last Admin Trade Name Freq PRN Reason Stop Dose Admin Acetaminophen 650 mg 02/11/25 18:53 02/11/25 19:03 Acetaminophen 325 Mg Tablet PO 650 mg Q6H PRN Administration Mild Pain (1-3) or Fever Hydrocodone Bitart/Acetaminophen 1 tab 02/11/25 18:53 Hydrocodone/Acetaminophen (*Crx) 5-325 Mg Tablet PO Q6H PRN Pain Rated 4-6 Bupropion HCl 300 mg 02/10/25 09:00 02/12/25 08:57 Bupropion Hcl Xl (24 Hr) 150 Mg Tabcr PO 300 mg QAM MARY Administration Duloxetine HCl 60 mg 02/10/25 09:00 02/12/25 08:57 Duloxetine Hcl 60 Mg Capsule.Dr PO 60 mg DAILY MARY Administration Fluticasone Propionate 1 spray 02/10/25 09:00 02/12/25 11:59 Fluticasone Propionate 0.05% Na Spr 16 Gm Btl (*Bkc) NASAL 1 spray Q12H MARY Administration Hydromorphone HCl 1 mg 02/11/25 18:53 02/12/25 04:21 Hydromorphone Hcl Inj (*Crx) 1 Mg/Ml Syr IV PUSH 1 mg Q4H PRN Administration Pain Rated 7-10 Sodium Chloride 1,000 mls @ 150 mls/hr 02/09/25 20:05 02/12/25 11:41 Normal Saline Iv IV CONT Not Given .Q6H40M MARY Metronidazole 500 mg in 100 mls @ 100 mls/hr 02/10/25 06:00 02/12/25 06:55 Flagyl 500 Mg/Iso Soln 100 Ml IVPB Infused Q8H MARY Infusion Ceftriaxone Sodium 1 gm/ 50 mls @ 100 mls/hr 02/10/25 21:00 02/11/25 21:05 Sodium Chloride IVPB Infused Q24H MARY Infusion Lisinopril 10 mg 02/11/25 12:24 02/12/25 08:57 Lisinopril 10 Mg Tablet PO 10 mg DAILY MARY Administration Metoprolol Succinate 50 mg 02/10/25 09:00 02/12/25 08:57 Metoprolol Succinate Ext Rel 50 Mg Tabcr PO 50 mg DAILY MARY Administration Ondansetron HCl 4 mg 02/09/25 20:03 02/11/25 15:40 Ondansetron Inj 4 Mg/2 Ml Vial IV PUSH 4 mg Q4H PRN Administration Nausea Pantoprazole Sodium 40 mg 02/10/25 09:00 02/12/25 08:57 Pantoprazole Sodium Iv 40 Mg Vial IV PUSH 40 mg QAM MARY Administration Simethicone 80 mg 02/11/25 13:02 02/11/25 13:16 Simethicone 80 Mg Tab.Chew PO 80 mg QID PRN Administration Abdominal Cramping Radiology Results: ITS Impressions Abdomen/Pelvis CT 02/09/25 18:45 IMPRESSION: 1. Significant mucosal and submucosal inflammation of the distal transverse colon, descending colon up to the sigmoid junction are noted suggestive of severe colitis, probably ischemic colitis. Please correlate with clinical and lab results for in shape and ischemic versus infective colitis. 2. No evidence of free fluid. No evidence of free air.. Labs Labs: Laboratory Results - last 24 hr 02/12/25 02/12/25 04:09 04:17 WBC 20.9 H RBC 4.47 Hgb 13.1 Hct 40.0 MCV 89.5 MCH 29.3 MCHC 32.8 RDW 13.5 Plt Count 213 MPV 11.5 H Sodium 138 Potassium 3.0 L Chloride 105 Carbon Dioxide 21 L Anion Gap 12 BUN 3 L Creatinine 0.51 L Estim Creat Clear Calc Not Reportable Estimated GFR > 60 Glucose 84 Calcium 8.1 L Magnesium 1.5 L C. difficile (PCR) Negative
--- NOTE | 2025-02-12 14:55 | PM.IMPN2 ---
Assessment and Plan Assessment and Plan (1) Colitis: Code(s): K52.9 - Noninfective gastroenteritis and colitis, unspecified Status: Acute Assessment and Plan: The patient presents with abdominal pain and rectal bleeding and found to have sepsis with tachycardia, leukocytosis related to colitis. Patient had prior normal screening colonoscopy in 2020. She received fluid bolus in ED CT Abd/Pelvis showing acute colitis suggestive of ischemia rather than infection but the patient's clinical picture is more consistent with acute infectious colitis and patient without evidence of significant atherosclerosis on imaging or risk factors. Lactic acidosis normal BCx collected and started on IV fluids and Rocephin/Flagyl per antibiotics stewardship guidelines. BCx NGTD CDiff negative. Stool culture pending GI ans GenSurg consulted and appreciate their input. HH stable. WBC worse today at 21K. Monitor HH. Monitor stool output. Monitor WBC. Diet advanced. Continue IV abx. Repeat CT scan tomorrow if WBC climbs to exclude perforation. (2) Sepsis: Qualifiers: Sepsis acute organ dysfunction status: without acute organ dysfunction Sepsis type: sepsis due to unspecified organism Qualified Code(s): A41.9 - Sepsis, unspecified organism Code(s): A41.9 - Sepsis, unspecified organism Status: Acute Assessment and Plan: Still with tachycardia around 110 on average. She is over 6L positive so will stop IV fluids. Check TSH. Monitor on tele. Consider Lasix As above (3) Acute lower GI hemorrhage: Code(s): K92.2 - Gastrointestinal hemorrhage, unspecified Status: Acute Assessment and Plan: As above (4) Severe dehydration: Code(s): E86.0 - Dehydration Status: Acute Assessment and Plan: Treated with IV fluids. Tolerating diet so will stop IV fluids. Plan DVT Prophylaxis - SCDs Code status - Full Subjective Date/time seen: 02/12/25 14:55 Interval history: 59yo female with obesity, depression, LAY, HTN and allergic rhinitis who presented to the ER with abdominal pain and bloody stools. 2 small BMs with trace blood.Tolerating full liquid diet. No CP or SOB. No n/v. Still with abdominal pain. Exam Narrative: AF 97.8 152/60 106 24 100% ra Gen - NARD Chest - CTA bilaterally, nml RR CV -tachycardic but regular. Telemetry showing sinus tachycardia Abd - Soft, mild diffuse pain. +BS Ext - No pedal edema Psych - Nml mood and affect Skin - Warm and dry Objective Data Vital Signs Vital Signs: Vital Signs - 24 hr 02/11/25 15:32 02/11/25 16:00 02/11/25 16:00 Temperature 98.1 F Pulse Rate 116 H 109 H Respiratory Rate 18 Blood Pressure 164/68 H Pulse Oximetry 100 Oxygen Delivery Room Air 02/11/25 18:00 02/11/25 18:56 02/11/25 20:00 Temperature 98.2 F Pulse Rate 111 H 115 H Respiratory Rate 16 Blood Pressure 138/70 Pulse Oximetry 97 Oxygen Delivery Room Air 02/11/25 20:00 02/11/25 22:00 02/12/25 00:00 Temperature Pulse Rate 109 H 110 H Respiratory Rate Blood Pressure Pulse Oximetry Oxygen Delivery Room Air 02/12/25 00:00 02/12/25 00:00 02/12/25 02:18 Temperature 98.3 F Pulse Rate 103 H 106 H 107 H Respiratory Rate 18 Blood Pressure 161/69 H Pulse Oximetry 96 Oxygen Delivery 02/12/25 04:00 02/12/25 04:00 02/12/25 04:00 Temperature 98.1 F Pulse Rate 109 H 116 H Respiratory Rate 14 Blood Pressure 138/70 Pulse Oximetry 98 Oxygen Delivery Room Air 02/12/25 06:15 02/12/25 07:36 02/12/25 08:00 Temperature 98.1 F Pulse Rate 116 H 117 H 112 H Respiratory Rate 20 20 Blood Pressure 150/68 H Pulse Oximetry 96 96 Oxygen Delivery Room Air 02/12/25 08:00 02/12/25 08:57 02/12/25 11:00 Temperature Pulse Rate 112 H 117 H 134 H Respiratory Rate Blood Pressure Pulse Oximetry Oxygen Delivery 02/12/25 11:30 02/12/25 12:00 02/12/25 12:00 Temperature 97.8 F Pulse Rate 110 H 119 H 119 H Respiratory Rate 24 H 24 H Blood Pressure 152/60 H Pulse Oximetry 100 100 Oxygen Delivery Room Air 02/12/25 14:00 Temperature Pulse Rate 106 H Respiratory Rate Blood Pressure Pulse Oximetry Oxygen Delivery Intake/Output Intake/Output: Intake & Output 02/09/25 02/10/25 02/11/25 02/12/25 23:59 23:59 23:59 23:59 Intake Total 4540 3562.5 4110 2665 Output Total 3800 3190 1100 Balance 4540 -237.5 920 1565 Meds/Results Medications: Active Medications Generic Name Dose Route Start Last Admin Trade Name Freq PRN Reason Stop Dose Admin Acetaminophen 650 mg 02/11/25 18:53 02/11/25 19:03 Acetaminophen 325 Mg Tablet PO 650 mg Q6H PRN Administration Mild Pain (1-3) or Fever Hydrocodone Bitart/Acetaminophen 1 tab 02/11/25 18:53 Hydrocodone/Acetaminophen (*Crx) 5-325 Mg Tablet PO Q6H PRN Pain Rated 4-6 Bupropion HCl 300 mg 02/10/25 09:00 02/12/25 08:57 Bupropion Hcl Xl (24 Hr) 150 Mg Tabcr PO 300 mg QAM MARY Administration Duloxetine HCl 60 mg 02/10/25 09:00 02/12/25 08:57 Duloxetine Hcl 60 Mg Capsule.Dr PO 60 mg DAILY MARY Administration Fluticasone Propionate 1 spray 02/10/25 09:00 02/12/25 11:59 Fluticasone Propionate 0.05% Na Spr 16 Gm Btl (*Bkc) NASAL 1 spray Q12H MARY Administration Hydromorphone HCl 1 mg 02/11/25 18:53 02/12/25 04:21 Hydromorphone Hcl Inj (*Crx) 1 Mg/Ml Syr IV PUSH 1 mg Q4H PRN Administration Pain Rated 7-10 Sodium Chloride 1,000 mls @ 150 mls/hr 02/09/25 20:05 02/12/25 11:41 Normal Saline Iv IV CONT Not Given .Q6H40M MARY Metronidazole 500 mg in 100 mls @ 100 mls/hr 02/10/25 06:00 02/12/25 06:55 Flagyl 500 Mg/Iso Soln 100 Ml IVPB Infused Q8H MARY Infusion Ceftriaxone Sodium 1 gm/ 50 mls @ 100 mls/hr 02/10/25 21:00 02/11/25 21:05 Sodium Chloride IVPB Infused Q24H MARY Infusion Lisinopril 10 mg 02/11/25 12:24 02/12/25 08:57 Lisinopril 10 Mg Tablet PO 10 mg DAILY MARY Administration Metoprolol Succinate 50 mg 02/10/25 09:00 02/12/25 08:57 Metoprolol Succinate Ext Rel 50 Mg Tabcr PO 50 mg DAILY MARY Administration Ondansetron HCl 4 mg 02/09/25 20:03 02/11/25 15:40 Ondansetron Inj 4 Mg/2 Ml Vial IV PUSH 4 mg Q4H PRN Administration Nausea Pantoprazole Sodium 40 mg 02/10/25 09:00 02/12/25 08:57 Pantoprazole Sodium Iv 40 Mg Vial IV PUSH 40 mg QAM MARY Administration Simethicone 80 mg 02/11/25 13:02 02/11/25 13:16 Simethicone 80 Mg Tab.Chew PO 80 mg QID PRN Administration Abdominal Cramping Radiology Results: ITS Impressions Abdomen/Pelvis CT 02/09/25 18:45 IMPRESSION: 1. Significant mucosal and submucosal inflammation of the distal transverse colon, descending colon up to the sigmoid junction are noted suggestive of severe colitis, probably ischemic colitis. Please correlate with clinical and lab results for in shape and ischemic versus infective colitis. 2. No evidence of free fluid. No evidence of free air.. Labs Labs: Laboratory Results - last 24 hr 02/12/25 02/12/25 04:09 04:17 WBC 20.9 H RBC 4.47 Hgb 13.1 Hct 40.0 MCV 89.5 MCH 29.3 MCHC 32.8 RDW 13.5 Plt Count 213 MPV 11.5 H Sodium 138 Potassium 3.0 L Chloride 105 Carbon Dioxide 21 L Anion Gap 12 BUN 3 L Creatinine 0.51 L Estim Creat Clear Calc Not Reportable Estimated GFR > 60 Glucose 84 Calcium 8.1 L Magnesium 1.5 L C. difficile (PCR) Negative
--- NOTE | 2025-02-12 16:31 | WPDGIPROGNO ---
Progress Note: A&P Assessment and Plan (1) Colitis: Code(s): K52.9 - Noninfective gastroenteritis and colitis, unspecified Status: Acute Assessment and Plan: probably ischemic colitis normal lactic acid but leukocytosis clinically better with less pain and no more blood in stool continue medical therapy consider colonoscopy in 4-6 weeks as outpatient (2) Acute lower GI hemorrhage: Code(s): K92.2 - Gastrointestinal hemorrhage, unspecified Status: Acute Assessment and Plan: from colitis, no more bleeding (3) Nausea and vomiting in adult: Code(s): R11.2 - Nausea with vomiting, unspecified Status: Acute Assessment and Plan: advance diet as tolerated now that she is feeling better (4) Severe dehydration: Code(s): E86.0 - Dehydration Status: Acute Assessment and Plan: treated (5) Lower abdominal pain: Code(s): R10.30 - Lower abdominal pain, unspecified Status: Acute Subjective Date/time seen: 02/12/25 16:31 Interval history: today finally is feeling better, no more blood in stool Review of Systems Review of Systems: All systems reviewed & are unremarkable except as noted in HPI and below Exam Const: General: cooperative and no acute distress HENMT: Face/Nose/Sinus: Normal nares present Eyes: General: appearance normal, both eyes and all related structures Neck: Neck: supple Resp: Auscultation: clear to auscultation bilaterally Cardio: Rhythm: regular rhythm GI: Inspection: normal to inspection and non-distended GI Palp: Yes abdominal tenderness, Yes Soft to palpation, Yes Tenderness to palpation present (GI) (less tender today), No Guarding due to palpation present (GI) and No Rigid due to palpation Skin: General skin exam: normal color Neuro: Speech: normal speech Motor exam (neuro): 5/5 motor strength present throughout Extrem: General: normal to inspection Psych: Attitude: not belligerent Objective Data Vital Signs Vital Signs: Vital Signs - 24 hr 02/11/25 18:00 02/11/25 18:56 02/11/25 20:00 Temperature 98.2 F Pulse Rate 111 H 115 H Respiratory Rate 16 Blood Pressure 138/70 Pulse Oximetry 97 Oxygen Delivery Room Air 02/11/25 20:00 02/11/25 22:00 02/12/25 00:00 Temperature Pulse Rate 109 H 110 H Respiratory Rate Blood Pressure Pulse Oximetry Oxygen Delivery Room Air 02/12/25 00:00 02/12/25 00:00 02/12/25 02:18 Temperature 98.3 F Pulse Rate 103 H 106 H 107 H Respiratory Rate 18 Blood Pressure 161/69 H Pulse Oximetry 96 Oxygen Delivery 02/12/25 04:00 02/12/25 04:00 02/12/25 04:00 Temperature 98.1 F Pulse Rate 109 H 116 H Respiratory Rate 14 Blood Pressure 138/70 Pulse Oximetry 98 Oxygen Delivery Room Air 02/12/25 06:15 02/12/25 07:36 02/12/25 08:00 Temperature 98.1 F Pulse Rate 116 H 117 H 112 H Respiratory Rate 20 20 Blood Pressure 150/68 H Pulse Oximetry 96 96 Oxygen Delivery Room Air 02/12/25 08:00 02/12/25 08:57 02/12/25 11:00 Temperature Pulse Rate 112 H 117 H 134 H Respiratory Rate Blood Pressure Pulse Oximetry Oxygen Delivery 02/12/25 11:30 02/12/25 12:00 02/12/25 12:00 Temperature 97.8 F Pulse Rate 110 H 119 H 119 H Respiratory Rate 24 H 24 H Blood Pressure 152/60 H Pulse Oximetry 100 100 Oxygen Delivery Room Air 02/12/25 14:00 02/12/25 15:01 Temperature 98.2 F Pulse Rate 106 H 117 H Respiratory Rate 20 Blood Pressure 114/44 L Pulse Oximetry 98 Oxygen Delivery Intake/Output Intake/Output: Intake & Output 02/09/25 02/10/25 02/11/25 02/12/25 23:59 23:59 23:59 23:59 Intake Total 4540 3562.5 4110 2665 Output Total 3800 3190 1400 Balance 4540 -237.5 920 1265 Meds/Results Medications: Active Medications Generic Name Dose Route Start Last Admin Trade Name Freq PRN Reason Stop Dose Admin Acetaminophen 650 mg 02/11/25 18:53 02/11/25 19:03 Acetaminophen 325 Mg Tablet PO 650 mg Q6H PRN Administration Mild Pain (1-3) or Fever Hydrocodone Bitart/Acetaminophen 1 tab 02/11/25 18:53 Hydrocodone/Acetaminophen (*Crx) 5-325 Mg Tablet PO Q6H PRN Pain Rated 4-6 Bupropion HCl 300 mg 02/10/25 09:00 02/12/25 08:57 Bupropion Hcl Xl (24 Hr) 150 Mg Tabcr PO 300 mg QAM MARY Administration Duloxetine HCl 60 mg 02/10/25 09:00 02/12/25 08:57 Duloxetine Hcl 60 Mg Capsule.Dr PO 60 mg DAILY MARY Administration Fluticasone Propionate 1 spray 02/10/25 09:00 02/12/25 11:59 Fluticasone Propionate 0.05% Na Spr 16 Gm Btl (*Bkc) NASAL 1 spray Q12H MARY Administration Hydromorphone HCl 1 mg 02/11/25 18:53 02/12/25 04:21 Hydromorphone Hcl Inj (*Crx) 1 Mg/Ml Syr IV PUSH 1 mg Q4H PRN Administration Pain Rated 7-10 Sodium Chloride 1,000 mls @ 150 mls/hr 02/09/25 20:05 02/12/25 11:41 Normal Saline Iv IV CONT Not Given .Q6H40M MARY Metronidazole 500 mg in 100 mls @ 100 mls/hr 02/10/25 06:00 02/12/25 06:55 Flagyl 500 Mg/Iso Soln 100 Ml IVPB Infused Q8H MARY Infusion Ceftriaxone Sodium 1 gm/ 50 mls @ 100 mls/hr 02/10/25 21:00 02/11/25 21:05 Sodium Chloride IVPB Infused Q24H MARY Infusion Lisinopril 10 mg 02/11/25 12:24 02/12/25 08:57 Lisinopril 10 Mg Tablet PO 10 mg DAILY MARY Administration Metoprolol Succinate 50 mg 02/10/25 09:00 02/12/25 08:57 Metoprolol Succinate Ext Rel 50 Mg Tabcr PO 50 mg DAILY MARY Administration Ondansetron HCl 4 mg 02/09/25 20:03 02/11/25 15:40 Ondansetron Inj 4 Mg/2 Ml Vial IV PUSH 4 mg Q4H PRN Administration Nausea Pantoprazole Sodium 40 mg 02/10/25 09:00 02/12/25 08:57 Pantoprazole Sodium Iv 40 Mg Vial IV PUSH 40 mg QAM MARY Administration Simethicone 80 mg 02/11/25 13:02 02/11/25 13:16 Simethicone 80 Mg Tab.Chew PO 80 mg QID PRN Administration Abdominal Cramping Radiology Results: ITS Impressions Abdomen/Pelvis CT 02/09/25 18:45 IMPRESSION: 1. Significant mucosal and submucosal inflammation of the distal transverse colon, descending colon up to the sigmoid junction are noted suggestive of severe colitis, probably ischemic colitis. Please correlate with clinical and lab results for in shape and ischemic versus infective colitis. 2. No evidence of free fluid. No evidence of free air.. Labs Labs: Laboratory Results - last 24 hr 02/12/25 02/12/25 04:09 04:17 WBC 20.9 H RBC 4.47 Hgb 13.1 Hct 40.0 MCV 89.5 MCH 29.3 MCHC 32.8 RDW 13.5 Plt Count 213 MPV 11.5 H Sodium 138 Potassium 3.0 L Chloride 105 Carbon Dioxide 21 L Anion Gap 12 BUN 3 L Creatinine 0.51 L Estim Creat Clear Calc Not Reportable Estimated GFR > 60 Glucose 84 Calcium 8.1 L Magnesium 1.5 L C. difficile (PCR) Negative
[2025-02-12] MEDS: MAGNESIUM SULF 2 GM/WATER 50ML 2 GM/50 ML BAG IVPB (18:23)
[2025-02-12] MEDS: cefTRIAXone 1 GM in SODIUM CHLORIDE 0.9% IV 50 ML 100 ML IVPB (20:20)
[2025-02-13] VITALS (11 sets, daily range): BP systolic 144–153; BP diastolic 61–77; PULSE 104–124; RESP 16–20; TEMP 36.7–36.9; O2SAT 97–99
[2025-02-13 04:34] LABS: Hematocrit 38.1 % (37.0-47.0); Hemoglobin 12.5 g/dL (12.0-15.0); Immature Granulocyte Percent A 0.7 % (0-0.5); Lymphocytes Absolute Auto 2.07 K/mm3 (0.9-3.2); Mean Corpuscular HGB Conc 32.8 g/dl (32-36); Mean Corpuscular Hemoglobin 28.9 pg (26-34); Mean Corpuscular Volume 88.2 fl (80-100); Nucleated Red Blood Cells Absolute Auto 0.000 K/mm3 (0.0-0.012); Nucleated Red Blood Cells Perc 0.0 % (0.0-0.2); Platelet Count Result 244 k/mm3 (150-375); Red Blood Count 4.32 M/mm3 (4.2-5.4); White Blood Count 16.4 K/mm3 (4.5-10.0)
[2025-02-13 05:01] LABS: Alanine Aminotransferase 11 U/L (6-35); Albumin Level 3.5 g/dL (3.5-5.1); Alkaline Phosphatase 81 U/L (38-126); Anion Gap 11 mmol/L (4-12); Aspartate Amino Transferase 19 U/L (14-36); Bilirubin,Total 0.5 mg/dL (0.2-1.3); Calcium 8.1 mg/dL (8.4-10.2); Carbon Dioxide 22 mmol/L (22-30); Chloride 104 mmol/L (98-107); Estimated Glomerular Filt Rate > 60; Glucose 99 mg/dL (65-110); Magnesium 1.9 mg/dL (1.6-2.3); Potassium 2.7 mmol/L (3.4-5.0); Sodium 137 mmol/L (137-145); Total Protein 6.5 g/dL (6.3-8.2)
[2025-02-13] MEDS: metroNIDAZOLE 500 MG/ISO 100ML 500 MG/100 ML BAG 100 MG IVPB (05:05)
[2025-02-13 05:10] LABS: Blood Urea Nitrogen < 2 mg/dL (7-17)
[2025-02-13 05:20] LABS: Thyroid Stimulating Hormone Reflex 0.905 uIU/mL (0.465-4.68)
[2025-02-13] MEDS: POTASSIUM CHLORIDE 20 MEQ ER TABLET 40 MEQ PO ×2 (05:53→08:05)
[2025-02-13] MEDS: DULoxetine HCL 60 MG CAPSULE.DR PO (08:05)
[2025-02-13] MEDS: METOPROLOL SUCCINATE EXT REL 50 MG TABCR PO (08:05)
[2025-02-13] MEDS: buPROPion HCL XL (24 HR) 150 MG TABCR 300 MG PO (08:05)
[2025-02-13] MEDS: FLUTICASONE PROPIONATE 0.05% NA SPR 16 GM BTL (*BKC) 1 SPRAY NASAL (08:10)
--- NOTE | 2025-02-13 11:46 | PC.NURSE ---
Discussed plan of care with Dr Clifton. States that he plans to discharge the patient. 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 Physician to nurse communication placed.
--- NOTE | 2025-02-13 12:16 | PM.PNGS ---
Progress Note: A&P Assessment and Plan (1) Colitis: Code(s): K52.9 - Noninfective gastroenteritis and colitis, unspecified Status: Acute Assessment and Plan: exam and WBC improved, jasmeet diet, +bowel fxn, cont abx, no acute surgical issues, will s/o, call c ?s, issues Subjective Subjective Date/Time Seen: 02/13/25 12:16 Interval history: feels much better, very minimal abd pain, liquid BMs (no obvious blood) Review of Systems Review of Systems: All systems reviewed & are unremarkable except as noted in HPI and below Exam Const: General: cooperative, comfortable and no acute distress Resp: Auscultation: clear to auscultation bilaterally Cardio: Rate: regular rate Rhythm: regular rhythm GI: Inspection: normal to inspection and non-distended GI Palp: No abdominal tenderness and Yes Soft to palpation Objective Data Vital Signs Vital Signs: Vital Signs - 24 hr 02/12/25 14:00 02/12/25 15:01 02/12/25 16:00 Temperature 36.8 C Pulse Rate 106 H 117 H 119 H Respiratory Rate 20 20 Blood Pressure 114/44 L Pulse Oximetry 98 98 Oxygen Delivery Room Air 02/12/25 16:00 02/12/25 18:00 02/12/25 19:41 Temperature Pulse Rate 119 H 114 H Respiratory Rate Blood Pressure Pulse Oximetry Oxygen Delivery Room Air 02/12/25 20:00 02/12/25 20:04 02/12/25 22:00 Temperature 36.7 C Pulse Rate 121 H 115 H 113 H Respiratory Rate 16 Blood Pressure 158/62 H Pulse Oximetry 98 Oxygen Delivery 02/12/25 23:42 02/12/25 23:46 02/13/25 00:00 Temperature 36.8 C Pulse Rate 128 H 121 H Respiratory Rate 15 Blood Pressure 164/82 H Pulse Oximetry 98 Oxygen Delivery Room Air 02/13/25 02:34 02/13/25 04:00 02/13/25 04:00 Temperature Pulse Rate 111 H 104 H Respiratory Rate Blood Pressure Pulse Oximetry Oxygen Delivery Room Air 02/13/25 05:58 02/13/25 05:59 02/13/25 07:48 Temperature 36.7 C 36.9 C Pulse Rate 124 H 116 H 117 H Respiratory Rate 16 16 Blood Pressure 151/69 H 153/77 H Pulse Oximetry 99 97 Oxygen Delivery 02/13/25 08:00 02/13/25 08:00 02/13/25 08:05 Temperature Pulse Rate 120 H 120 H 118 H Respiratory Rate 16 Blood Pressure Pulse Oximetry 97 Oxygen Delivery Room Air 02/13/25 10:00 02/13/25 11:32 02/13/25 12:05 Temperature 36.8 C Pulse Rate 110 H 118 H Respiratory Rate 20 Blood Pressure 144/61 H Pulse Oximetry 98 98 Oxygen Delivery Room Air Intake/Output Intake/Output: Intake & Output 02/10/25 02/11/25 02/12/25 02/13/25 23:59 23:59 23:59 23:59 Intake Total 3562.5 4110 2935 640 Output Total 3800 3190 2825 1400 Balance -237.5 920 110 -760 Meds/Results Medications: Active Medications Generic Name Dose Route Start Last Admin Trade Name Freq PRN Reason Stop Dose Admin Acetaminophen 650 mg 02/11/25 18:53 02/11/25 19:03 Acetaminophen 325 Mg Tablet PO 650 mg Q6H PRN Administration Mild Pain (1-3) or Fever Hydrocodone Bitart/Acetaminophen 1 tab 02/11/25 18:53 Hydrocodone/Acetaminophen (*Crx) 5-325 Mg Tablet PO Q6H PRN Pain Rated 4-6 Bupropion HCl 300 mg 02/10/25 09:00 02/13/25 08:05 Bupropion Hcl Xl (24 Hr) 150 Mg Tabcr PO 300 mg QAM MARY Administration Duloxetine HCl 60 mg 02/10/25 09:00 02/13/25 08:05 Duloxetine Hcl 60 Mg Capsule.Dr PO 60 mg DAILY MARY Administration Fluticasone Propionate 1 spray 02/10/25 09:00 02/13/25 08:10 Fluticasone Propionate 0.05% Na Spr 16 Gm Btl (*Bkc) NASAL 1 spray Q12H MARY Administration Hydromorphone HCl 1 mg 02/11/25 18:53 02/12/25 04:21 Hydromorphone Hcl Inj (*Crx) 1 Mg/Ml Syr IV PUSH 1 mg Q4H PRN Administration Pain Rated 7-10 Metronidazole 500 mg in 100 mls @ 100 mls/hr 02/10/25 06:00 02/13/25 07:07 Flagyl 500 Mg/Iso Soln 100 Ml IVPB Infused Q8H MARY Infusion Ceftriaxone Sodium 1 gm/ 50 mls @ 100 mls/hr 02/10/25 21:00 02/12/25 21:19 Sodium Chloride IVPB Infused Q24H MARY Infusion Lisinopril 10 mg 02/11/25 12:24 02/13/25 08:05 Lisinopril 10 Mg Tablet PO 10 mg DAILY MARY Administration Metoprolol Succinate 50 mg 02/10/25 09:00 02/13/25 08:05 Metoprolol Succinate Ext Rel 50 Mg Tabcr PO 50 mg DAILY MARY Administration Ondansetron HCl 4 mg 02/09/25 20:03 02/11/25 15:40 Ondansetron Inj 4 Mg/2 Ml Vial IV PUSH 4 mg Q4H PRN Administration Nausea Pantoprazole Sodium 40 mg 02/10/25 09:00 02/12/25 08:57 Pantoprazole Sodium Iv 40 Mg Vial IV PUSH 40 mg QAM MARY Administration Simethicone 80 mg 02/11/25 13:02 02/11/25 13:16 Simethicone 80 Mg Tab.Chew PO 80 mg QID PRN Administration Abdominal Cramping Radiology Results: ITS Impressions Abdomen/Pelvis CT 02/09/25 18:45 IMPRESSION: 1. Significant mucosal and submucosal inflammation of the distal transverse colon, descending colon up to the sigmoid junction are noted suggestive of severe colitis, probably ischemic colitis. Please correlate with clinical and lab results for in shape and ischemic versus infective colitis. 2. No evidence of free fluid. No evidence of free air.. Labs Labs: Laboratory Results - last 24 hr 02/13/25 04:08 WBC 16.4 H RBC 4.32 Hgb 12.5 Hct 38.1 MCV 88.2 MCH 28.9 MCHC 32.8 RDW 13.6 Plt Count 244 MPV 11.4 H Immature Gran % (Auto) 0.7 H Neut % (Auto) 79.1 H Lymph % (Auto) 12.6 L [place] % (Auto) 5.2 Eos % (Auto) 2.1 Baso % (Auto) 0.3 Lymph # (Auto) 2.07 [place] # (Auto) 0.9 H Eos # (Auto) 0.4 H Baso # (Auto) 0.1 Abs Immat Gran (auto) 0.12 H Absolute Neuts (auto) 13.0 H Absolute Nucleated RBC 0.000 Nucleated RBC % 0.0 Sodium 137 Potassium 2.7 L* Chloride 104 Carbon Dioxide 22 Anion Gap 11 BUN < 2 L Creatinine 0.51 L Estim Creat Clear Calc Not Reportable Estimated GFR > 60 Glucose 99 Calcium 8.1 L Magnesium 1.9 Total Bilirubin 0.5 AST 19 ALT 11 Alkaline Phosphatase 81 Total Protein 6.5 Albumin 3.5 TSH (Reflex) 0.905
--- NOTE | 2025-02-13 12:28 | P.DS_ITS ---
DS: Admitting Diagnosis Discharge Date 02/13/25 Admitting Diagnosis Abdominal pain and bloody stools DS: Discharge Diagnosis Discharge Diagnosis (1) Sepsis: Qualifiers: Sepsis type: sepsis due to unspecified organism Sepsis acute organ dysfunction status: without acute organ dysfunction Qualified Code(s): A41.9 - Sepsis, unspecified organism Code(s): A41.9 - Sepsis, unspecified organism Status: Acute DS: Summary Hospital Course Hospital Course: Discharge Diagnoses * Acute colitis, most consistent with?ischemic colitis, improved * Acute lower gastrointestinal hemorrhage?secondary to colitis, resolved * Sepsis without acute organ dysfunction?due to colitis, resolved * Severe dehydration, resolved * Sinus tachycardia * Essential hypertension * Obesity * Obstructive sleep apnea * Depression and anxiety Hospital Course The patient presented with acute onset abdominal pain, nausea, vomiting, diarrhea progressing to maroon/bloody stools, and lightheadedness. Initial evaluation showed?marked leukocytosis (WBC 25.7), hemoconcentration (Hgb 16.5), tachycardia, and CT abdomen/pelvis demonstrating?severe left-sided colitis, radiographically concerning for ischemic colitis. She met?sepsis criteria?without acute organ dysfunction and was admitted for IV fluids, bowel rest, and empiric IV antibiotics (ceftriaxone and metronidazole). Blood cultures remained negative.?C. difficile PCR was negative?and stool cultures did not reveal a clear infectious source. General Surgery and Gastroenterology were consulted. There was no indication for surgical or endoscopic intervention during the acute phase. Serial abdominal exams remained benign, lactic acid stayed normal, and there was no evidence of perforation or peritonitis. Over the hospital course, abdominal pain and hematochezia steadily improved, hemoglobin remained stable, and leukocytosis trended down. Diet was gradually advanced and tolerated. IV fluids were discontinued once euvolemic. By discharge, the patient reported?no further bloody stools, minimal abdominal discomfort, stable vital signs aside from baseline tachycardia, and was tolerating oral intake. ALso managed for hypokalemia, potassium was replaced and discharged on 40mEq potassium daily x 5 days [facility] * CT Abdomen/Pelvis (02/09/25):?Severe mucosal and submucosal inflammation of distal transverse and descending colon to sigmoid junction, likely ischemic colitis; no free air or fluid * Initial labs:?WBC 25.7, Hgb 16.5 ? stabilized ?13 * Lactic acid:?Normal throughout admission * C. difficile PCR:?Negative * Blood cultures:?No growth Discharge Medications * Metoprolol succinate 50 mg PO daily * Lisinopril 10 mg PO daily * Bupropion XL 300 mg PO every morning * Duloxetine 60 mg PO daily * Fluticasone nasal spray?as previously prescribed * Pantoprazole 40 mg PO daily * PRN pain medications?as prescribed (avoid NSAIDs) * Potassium Chloride 40mEq daily x 5 days Antibiotics completed inpatient; none required at discharge unless otherwise specified by GI. Discharge Instructions * Advance diet as tolerated; maintain adequate hydration * Avoid NSAIDs and dehydration * Monitor for recurrence of abdominal pain, bloody stools, dizziness, fever, or worsening tachycardia * Resume normal activity as tolerated Follow-Up * Gastroenterology:?Outpatient follow-up with?colonoscopy in 4?6 weeks?after resolution of acute colitis * Primary Care Physician:?Within 1 week * Return precautions:?Worsening abdominal pain, recurrent hematochezia, fever, syncope, or inability to tolerate oral intake Condition at Discharge Improved and stable. Abdominal pain minimal, no ongoing GI bleeding, tolerating diet, hemodynamically stable, no surgical issues identified. Time Spent with Patient Time attestation: Total time spent providing and/or coordinating discharge services: DS: Data Data Completed and Pending Labs on day of discharge: Labs from last 24 hours 02/13/25 04:08 WBC 16.4 H RBC 4.32 Hgb 12.5 Hct 38.1 MCV 88.2 MCH 28.9 MCHC 32.8 RDW 13.6 Plt Count 244 MPV 11.4 H Immature Gran % (Auto) 0.7 H Neut % (Auto) 79.1 H Lymph % (Auto) 12.6 L [place] % (Auto) 5.2 Eos % (Auto) 2.1 Baso % (Auto) 0.3 Lymph # (Auto) 2.07 [place] # (Auto) 0.9 H Eos # (Auto) 0.4 H Baso # (Auto) 0.1 Abs Immat Gran (auto) 0.12 H Absolute Neuts (auto) 13.0 H Absolute Nucleated RBC 0.000 Nucleated RBC % 0.0 Sodium 137 Potassium 2.7 L* Chloride 104 Carbon Dioxide 22 Anion Gap 11 BUN < 2 L Creatinine 0.51 L Estim Creat Clear Calc Not Reportable Estimated GFR > 60 Glucose 99 Calcium 8.1 L Magnesium 1.9 Total Bilirubin 0.5 AST 19 ALT 11 Alkaline Phosphatase 81 Total Protein 6.5 Albumin 3.5 TSH (Reflex) 0.905 Preliminary micro results at discharge 02/10/25 08:27 Blood Culture - Preliminary Blood 02/10/25 08:36 Blood Culture - Preliminary Blood Discharge Plan Discharge Attending physician on discharge: Xiang Clifton Consulting providers: Dotty Cespedes; Kel Pantoja; Xiang Clifton Discharging Clinician: Xiang Clifton Anticipated Discharge Date/Time: 02/13/25 12:16 Patient Disposition: Home Activity: as tolerated Diet: as tolerated and regular Patient Instructions: Antibiotic Form, Rectal Bleeding (GEN) Patient Language: Greek Stand Alone Forms: General Discharge Information Follow-up/Referrals: Dotty Cespedes MD [Physician, General Surgery] Referral Note: F/u with gen surgery as instructed Kel Pantoja MD [Physician, Gastroenterology] Referral Note: F/u with GI as instructed Za Mcarthur APRN, [facility] [Primary Care Provider, Internal Medicine] Referral Note: F/u with PCP in 3-5 days Discharge Medications: New levofloxacin 750 mg tablet 750 mg PO DAILY 5 Days Qty: 5 0RF metronidazole 500 mg tablet 500 mg PO Q8H 5 Days Qty: 15 0RF potassium chloride [Klor-Con M20] 20 mEq tablet,ER particles/crystals 40 meq PO DAILY 5 Days Qty: 10 0RF Continued ibuprofen 600 mg tablet 600 mg PO TID PRN (Reason: fever or pain) Qty: 30 0RF multivitamin Tablet 1 tablet PO DAILY bupropion HCl [Wellbutrin XL] 300 mg tablet extended release 24 hr 300 mg PO QAM Qty: 90 3RF duloxetine 60 mg capsule,delayed release(DR/EC) See Rx Instructions .ROUTE .COMPLEX Qty: 90 3RF Dose Instruction: TAKE 1 CAPSULE DAILY Rx Instructions: TAKE 1 CAPSULE DAILY metoprolol succinate 50 mg tablet extended release 24 hr 50 mg PO DAILY Rx Instructions: take 1 tablet by oral route every day fluticasone propionate [Flonase Allergy Relief] 50 mcg/actuation spray,suspension 1 spray intranasal Q12H Qty: 48 0RF Rx Instructions: administer into each nostril lisinopril 10 mg tablet See Rx Instructions .ROUTE .COMPLEX Qty: 90 3RF Dose Instruction: TAKE 1 TABLET DAILY Rx Instructions: TAKE 1 TABLET DAILY Zepbound 5 mg/0.5 mL pen injector 5 mg subcut WEEKLY Qty: 2 0RF Patient Comments: takes in Mondays Date of admission: 02/11/25 09:32 Primary Care Provider: Za Mcarthur Admitting Provider: Ashley Bales Attending physician on admission: Ashley Bales Condition: Guarded Prognosis
[2025-02-13] MEDS: PANTOPRAZOLE SODIUM IV 40 MG VIAL IV PUSH (12:36)
--- NOTE | 2025-02-13 12:55 | PC.NURSE ---
Reviewed all discharge instructions with patient. Verbalizes understanding at this time. Discussed medications received and next dose due. IV access removed intact. No acute distress noted.
--- NOTE | 2025-02-13 13:41 | WPDGIPROGNO ---
Progress Note: A&P Assessment and Plan (1) Colitis: Code(s): K52.9 - Noninfective gastroenteritis and colitis, unspecified Status: Acute Assessment and Plan: probably ischemic colitis but clinically much better, no more blood in stools wbc trending down and normal lactic she can go home today will set up colonoscopy in 4-6 weeks as outpatient (2) Acute lower GI hemorrhage: Code(s): K92.2 - Gastrointestinal hemorrhage, unspecified Status: Acute Assessment and Plan: from colitis, no more bleeding (3) Nausea and vomiting in adult: Code(s): R11.2 - Nausea with vomiting, unspecified Status: Acute Assessment and Plan: advance diet as tolerated (4) Severe dehydration: Code(s): E86.0 - Dehydration Status: Acute Assessment and Plan: treated (5) Lower abdominal pain: Code(s): R10.30 - Lower abdominal pain, unspecified Status: Acute Subjective Date/time seen: 02/13/25 13:41 Interval history: overall much better and going home today Review of Systems Review of Systems: All systems reviewed & are unremarkable except as noted in HPI and below Exam Const: General: cooperative and no acute distress HENMT: Face/Nose/Sinus: Normal nares present Eyes: General: appearance normal, both eyes and all related structures Neck: Neck: supple Resp: Auscultation: clear to auscultation bilaterally Cardio: Rhythm: regular rhythm GI: Inspection: normal to inspection and non-distended GI Palp: Yes Soft to palpation, No Tenderness to palpation present (GI), No Guarding due to palpation present (GI) and No Rigid due to palpation Skin: General skin exam: normal color Neuro: Speech: normal speech Motor exam (neuro): 5/5 motor strength present throughout Extrem: General: normal to inspection Psych: Attitude: not belligerent Objective Data Vital Signs Vital Signs: Vital Signs - 24 hr 02/12/25 14:00 02/12/25 15:01 02/12/25 16:00 Temperature 98.2 F Pulse Rate 106 H 117 H 119 H Respiratory Rate 20 20 Blood Pressure 114/44 L Pulse Oximetry 98 98 Oxygen Delivery Room Air 02/12/25 16:00 02/12/25 18:00 02/12/25 19:41 Temperature Pulse Rate 119 H 114 H Respiratory Rate Blood Pressure Pulse Oximetry Oxygen Delivery Room Air 02/12/25 20:00 02/12/25 20:04 02/12/25 22:00 Temperature 98.1 F Pulse Rate 121 H 115 H 113 H Respiratory Rate 16 Blood Pressure 158/62 H Pulse Oximetry 98 Oxygen Delivery 02/12/25 23:42 02/12/25 23:46 02/13/25 00:00 Temperature 98.3 F Pulse Rate 128 H 121 H Respiratory Rate 15 Blood Pressure 164/82 H Pulse Oximetry 98 Oxygen Delivery Room Air 02/13/25 02:34 02/13/25 04:00 02/13/25 04:00 Temperature Pulse Rate 111 H 104 H Respiratory Rate Blood Pressure Pulse Oximetry Oxygen Delivery Room Air 02/13/25 05:58 02/13/25 05:59 02/13/25 07:48 Temperature 98.0 F 98.5 F Pulse Rate 124 H 116 H 117 H Respiratory Rate 16 16 Blood Pressure 151/69 H 153/77 H Pulse Oximetry 99 97 Oxygen Delivery 02/13/25 08:00 02/13/25 08:00 02/13/25 08:05 Temperature Pulse Rate 120 H 120 H 118 H Respiratory Rate 16 Blood Pressure Pulse Oximetry 97 Oxygen Delivery Room Air 02/13/25 10:00 02/13/25 11:32 02/13/25 12:05 Temperature 98.3 F Pulse Rate 110 H 118 H Respiratory Rate 20 Blood Pressure 144/61 H Pulse Oximetry 98 98 Oxygen Delivery Room Air Intake/Output Intake/Output: Intake & Output 02/10/25 02/11/25 02/12/25 02/13/25 23:59 23:59 23:59 23:59 Intake Total 3562.5 4110 2935 640 Output Total 3800 3190 2825 1400 Balance -237.5 920 110 -760 Meds/Results Medications: Active Medications Generic Name Dose Route Start Last Admin Trade Name Freq PRN Reason Stop Dose Admin Acetaminophen 650 mg 02/11/25 18:53 02/11/25 19:03 Acetaminophen 325 Mg Tablet PO 650 mg Q6H PRN Administration Mild Pain (1-3) or Fever Hydrocodone Bitart/Acetaminophen 1 tab 02/11/25 18:53 Hydrocodone/Acetaminophen (*Crx) 5-325 Mg Tablet PO Q6H PRN Pain Rated 4-6 Bupropion HCl 300 mg 02/10/25 09:00 02/13/25 08:05 Bupropion Hcl Xl (24 Hr) 150 Mg Tabcr PO 300 mg QAM MARY Administration Duloxetine HCl 60 mg 02/10/25 09:00 02/13/25 08:05 Duloxetine Hcl 60 Mg Capsule.Dr PO 60 mg DAILY MARY Administration Fluticasone Propionate 1 spray 02/10/25 09:00 02/13/25 08:10 Fluticasone Propionate 0.05% Na Spr 16 Gm Btl (*Bkc) NASAL 1 spray Q12H MARY Administration Hydromorphone HCl 1 mg 02/11/25 18:53 02/12/25 04:21 Hydromorphone Hcl Inj (*Crx) 1 Mg/Ml Syr IV PUSH 1 mg Q4H PRN Administration Pain Rated 7-10 Metronidazole 500 mg in 100 mls @ 100 mls/hr 02/10/25 06:00 02/13/25 07:07 Flagyl 500 Mg/Iso Soln 100 Ml IVPB Infused Q8H MARY Infusion Ceftriaxone Sodium 1 gm/ 50 mls @ 100 mls/hr 02/10/25 21:00 02/12/25 21:19 Sodium Chloride IVPB Infused Q24H MARY Infusion Lisinopril 10 mg 02/11/25 12:24 02/13/25 08:05 Lisinopril 10 Mg Tablet PO 10 mg DAILY MARY Administration Metoprolol Succinate 50 mg 02/10/25 09:00 02/13/25 08:05 Metoprolol Succinate Ext Rel 50 Mg Tabcr PO 50 mg DAILY MARY Administration Ondansetron HCl 4 mg 02/09/25 20:03 02/11/25 15:40 Ondansetron Inj 4 Mg/2 Ml Vial IV PUSH 4 mg Q4H PRN Administration Nausea Pantoprazole Sodium 40 mg 02/10/25 09:00 02/13/25 12:36 Pantoprazole Sodium Iv 40 Mg Vial IV PUSH 40 mg QAM MARY Administration Simethicone 80 mg 02/11/25 13:02 02/11/25 13:16 Simethicone 80 Mg Tab.Chew PO 80 mg QID PRN Administration Abdominal Cramping Radiology Results: ITS Impressions Abdomen/Pelvis CT 02/09/25 18:45 IMPRESSION: 1. Significant mucosal and submucosal inflammation of the distal transverse colon, descending colon up to the sigmoid junction are noted suggestive of severe colitis, probably ischemic colitis. Please correlate with clinical and lab results for in shape and ischemic versus infective colitis. 2. No evidence of free fluid. No evidence of free air.. Labs Labs: Laboratory Results - last 24 hr 02/13/25 04:08 WBC 16.4 H RBC 4.32 Hgb 12.5 Hct 38.1 MCV 88.2 MCH 28.9 MCHC 32.8 RDW 13.6 Plt Count 244 MPV 11.4 H Immature Gran % (Auto) 0.7 H Neut % (Auto) 79.1 H Lymph % (Auto) 12.6 L [place] % (Auto) 5.2 Eos % (Auto) 2.1 Baso % (Auto) 0.3 Lymph # (Auto) 2.07 [place] # (Auto) 0.9 H Eos # (Auto) 0.4 H Baso # (Auto) 0.1 Abs Immat Gran (auto) 0.12 H Absolute Neuts (auto) 13.0 H Absolute Nucleated RBC 0.000 Nucleated RBC % 0.0 Sodium 137 Potassium 2.7 L* Chloride 104 Carbon Dioxide 22 Anion Gap 11 BUN < 2 L Creatinine 0.51 L Estim Creat Clear Calc Not Reportable Estimated GFR > 60 Glucose 99 Calcium 8.1 L Magnesium 1.9 Total Bilirubin 0.5 AST 19 ALT 11 Alkaline Phosphatase 81 Total Protein 6.5 Albumin 3.5 TSH (Reflex) 0.905
== END 2025-02-13 13:34 | disposition home or self-care (01) | DRG 872 ==
LOC: ANHED 19:29 → ANH3MEDSUR 21:02 → ANHIMU 22:08
PROVIDERS: Internal Medicine; Admitting Provider Internal Medicine; Emergency Provider Emergency Medicine; PCP Clinical Nurse Specialist; Visit Provider Internal Medicine
DX: A41.9 Sepsis, unspecified organism (principal); K55.9 Vascular disorder of intestine, unspecified; K92.2 Gastrointestinal hemorrhage, unspecified; E86.0 Dehydration; E87.6 Hypokalemia; E66.9 Obesity, unspecified; F41.8 Other specified anxiety disorders; G47.33 Obstructive sleep apnea (adult) (pediatric); G89.29 Other chronic pain; I10 Essential (primary) hypertension; R00.0 Tachycardia, unspecified; Z20.822 Contact with and (suspected) exposure to COVID-19; Z68.31 Body mass index [BMI] 31.0-31.9, adult; Z87.891 Personal history of nicotine dependence
CPT/HCPCS: 36415; 74177; 80048; 80053; 83605; 83735; 84443; 85014; 85018; 85025; 85027; 85610; 85730; 86850; 86870; 86880; 86900; 86901; 86902; 86905; 86922; 86971; 87040; 87045; 87046; 87427; 87493; 87637; 96361; 96365; 96375; 96376; 99285; A9270; G0378; J0696; J1171; J1836; J2405; J2470; J3475; J7030; Q9967